=== PATIENT | female | born 1955 | race African-American/Black ===

== ENCOUNTER 2020-09-30 08:38 | Outpatient (REF) | payer MEDICAID, SELFPAY ==
--- NOTE | 2020-09-30 | MM_ITS ---
EXAMINATION: MM SCREENING DIGITAL BREAST TOMOSYNTHESIS, BILATERAL CLINICAL INFORMATION: Screening. Asymptomatic. The lifetime risk of breast cancer based on the Tyrer-Cuzick Model is 5%. COMPARISON: Mammography: 09/22/2019, 08/06/2018 TECHNIQUE: Digital breast tomosynthesis is performed in both the craniocaudal and mediolateral oblique views along with computer-aided detection (CAD). Synthesized 2D images are generated from the tomosynthesis. FINDINGS: There are scattered areas of fibroglandular density (ACR BI-RADS breast composition Category b). There are no significant masses, abnormal calcifications, or other abnormalities. The axilla and skin contours are unremarkable. MM/MM tomosynthesis screening BI IMPRESSION: No mammographic evidence of malignancy. ASSESSMENT: BI-RADS 1: Negative RECOMMENDATION: Routine annual mammography screening. This patient's information was entered into a reminder system with a target due date for their next mammogram.
== END 2020-09-30 08:39 | disposition home or self-care (01) ==
LOC: HO.MAMMO 08:38
PROVIDERS: Visit Provider Internal Medicine
DX: Z12.31 Encounter for screening mammogram for malignant neoplasm of breast (principal)
CPT/HCPCS: 77063; 77067

== ENCOUNTER 2021-08-03 15:33 | Inpatient (IN) | payer OTHER, SELFPAY ==
--- NOTE | 2021-08-03 15:35 | ED_ITS ---
HPI - Psych General Chief Complaint: Psychiatric Symptoms Stated Complaint: crisis Time Seen by Provider: 08/03/21 15:35 Source: patient and EMS Mode of arrival: EMS Limitations: no limitations History of Present Illness MD complaint: suicidal ideation and feels depressed Onset (ago): week(s) Duration: getting worse History of same: Yes Relieving factors: none Context: not taking psychiatric medications and significant life stressor Associated psychiatric symptoms: depression and suicidal ideation Associated symptoms: denies other symptoms Treatments prior to arrival: placed on mental health hold If self harm: admits thoughts of self harm Related Data Home Medications Medication Instructions Recorded Confirmed M.V.I. Adult 1 tab PO DAILY 08/03/21 08/03/21 albuterol sulfate 90 mcg/actuation 2 puff PO Q4H PRN 08/03/21 08/03/21 aerosol inhaler amlodipine 10 mg tablet 1 tab PO QAM 08/03/21 08/03/21 apixaban 5 mg tablet (Eliquis) 1 tab PO BID 08/03/21 08/03/21 atorvastatin 20 mg tablet 1 tab PO BEDTIME 08/03/21 08/03/21 benztropine 1 mg tablet 1 tab PO BID 08/03/21 08/03/21 bupropion HCl 300 mg 24 hr tablet, 1 tab PO QAM 08/03/21 08/03/21 extended release cholecalciferol (vitamin D3) 50 1 cap PO QAM 08/03/21 08/03/21 mcg (2,000 unit) capsule lisinopril 5 mg tablet 1 tab PO QAM 08/03/21 08/03/21 loratadine 10 mg tablet (Claritin) 10 mg PO DAILY 08/03/21 08/03/21 melatonin 3 mg tablet 1 tab PO BEDTIME PRN 08/03/21 08/03/21 mirtazapine 15 mg tablet 2 tab PO BEDTIME 08/03/21 08/03/21 olanzapine 20 mg tablet (Zyprexa) 20 mg PO BEDTIME 08/03/21 08/03/21 oxcarbazepine 300 mg tablet 300 mg PO DAILY 08/03/21 08/03/21 oxcarbazepine 300 mg tablet 600 mg PO BEDTIME 08/03/21 08/03/21 sennosides 8.6 mg tablet (senna) 8.6 mg PO DAILY PRN 08/03/21 08/03/21 simethicone 125 mg chewable tablet 1 tab PO QID PRN 08/03/21 08/03/21 thiamine HCl (vitamin B1) 100 mg 1 tab PO QAM 08/03/21 08/03/21 tablet Allergies Allergy/AdvReac Type Severity Reaction Status Date / Time hydrochlorothiazide Allergy Unknown UNKNOWN Unverified 08/17/20 17:36 [HYDROCHLOROTHIAZIDE] risperidone [From RISPERDAL] Allergy Unknown hives Unverified 08/17/20 17:36 trazodone [TRAZODONE] AdvReac Unknown FEELS VERY Unverified 08/17/20 17:36 SLEEPY ENVIRONMENTAL Allergy Unknown ITCHY EYES Uncoded 08/17/20 17:36 Review of Systems Review of Systems: Constitutional : No Fever, No Chills ENT/Mouth : No Ear Pain, No Nasal Congestion, No sore throat Eyes: No Eye Pain, No Swelling, No Redness Cardiovascular : No Chest Pain, No SOB Respiratory : No Cough, No Sputum, No Dyspnea Gastrointestinal : No Nausea, No Vomiting, No Diarrhea, No Hematochezia, No Melena Genitourinary : No Dysuria, No Urinary Frequency, No Hematuria Musculoskeletal : No Myalgias Skin : No Skin Lesions, No rash Neuro : No Weakness, No Numbness, No Paresthesias, No Dizziness, No Headache Psych : positive Anxiety, positive Depression, positive SI no HI Heme/Lymph: No Lymphadenopathy Endocrine : No Polyuria, No Polydipsia All other systems reviewed and are negative [facility] Past Medical History Attestation statement: The following information was validated with the patient. Medical History (Updated 08/03/21 @ 18:22 by Sheba Mims DO) Bipolar 1 disorder Depression HLD (hyperlipidemia) HTN (hypertension) PTSD (post-traumatic stress disorder) Social History Social History (Updated 08/03/21 @ 15:53 by Sheba Mims DO) Patient Tobacco Use Status: Never used Tobacco Use of substances other than those prescribed or required for medical reasons: No Advance Directives: No Advance Directives Information Provided: Yes Patient : No Physical Exam Vital Signs: Vital Signs: Last Vital Signs Temp 98.8 F 08/03/21 15:43 Pulse 69 08/03/21 15:43 Resp 16 08/03/21 17:27 BP 147/72 H 08/03/21 15:43 Pulse Ox 100 08/03/21 15:43 Body Mass Index 26.6 Appearance: Alert. Oriented X3. No acute distress. Eyes: Pupils equal, round and reactive to light. ENT: Pharynx normal. Neck: Normal inspection. Neck supple. CVS: Normal heart rate and rhythm. Pulses normal. Respiratory: No respiratory distress. Breath sounds normal. Abdomen: Soft and non-tender. Skin: Skin warm and dry. Normal skin color. Normal skin turgor. Extremities: No lower extremity edema. No calf ttp Neuro: Oriented X 3. No motor deficit. No sensory deficit. CN2-12 intact Psych: calm and cooperative, + depressed, + SI with plan Course Course Course Narrative: Physician observation started at 6pm Patient placed in physician observation because the patient needed more time BHN and placement for inpatient psychiatry. At the time observation was started the patient's vitals were stable, patient is alert and oriented, Neuro: nonfocal, CV RRR, Lungs clear signed out pending BHN input MDM - Psych MDM Narrative Medical decision making narrative: 66 yo female with worsening depression and SI - seen by N in the field c/o SI with plan at this time will need medical clearance. Labs and consult ordered. Lab Data Labs: Lab Results 08/03/21 Range/Units 16:51 COVID-19 (ANNA) Negative (Negative) COVID-19 Clin Com See Note Discharge Plan Discharge Clinical Impression: Depression with suicidal ideation Prescriptions: No Action M.V.I. Adult 1 tab PO DAILY RF: 0 amlodipine 10 mg tablet 1 tab PO QAM RF: 0 atorvastatin 20 mg tablet 1 tab PO BEDTIME RF: 0 lisinopril 5 mg tablet 1 tab PO QAM RF: 0 cholecalciferol (vitamin D3) 50 mcg (2,000 unit) capsule 1 cap PO QAM RF: 0 sennosides [senna] 8.6 mg Tablet 8.6 mg PO DAILY PRN (Reason: Constipation) RF: 0 thiamine HCl (vitamin B1) 100 mg tablet 1 tab PO QAM RF: 0 oxcarbazepine 300 mg tablet 300 mg PO DAILY RF: 0 oxcarbazepine 300 mg tablet 600 mg PO BEDTIME RF: 0 melatonin 3 mg tablet 1 tab PO BEDTIME PRN (Reason: Insomnia) RF: 0 benztropine 1 mg tablet 1 tab PO BID RF: 0 simethicone 125 mg tablet,chewable 1 tab PO QID PRN (Reason: gas) RF: 0 mirtazapine 15 mg tablet 2 tab PO BEDTIME RF: 0 albuterol sulfate 90 mcg/actuation HFA aerosol inhaler 2 puff PO Q4H PRN (Reason: Wheezing) RF: 0 olanzapine [Zyprexa] 20 mg Tablet 20 mg PO BEDTIME RF: 0 loratadine [Claritin] 10 mg Tablet 10 mg PO DAILY RF: 0 bupropion HCl 300 mg tablet extended release 24 hr 1 tab PO QAM RF: 0 Eliquis 5 mg tablet 1 tab PO BID RF: 0
[2021-08-03 15:43] VITALS: BP 147/72; PULSE 69; RESP 18; TEMP 37.1; O2SAT 100; BMI 26.6
--- NOTE | 2021-08-03 15:43 | ECG_ITS ---
Test Reason : PSYCHIATRIC Blood Pressure : / mmHG Vent. Rate : 060 BPM Atrial Rate : 060 BPM P-R Int : 180 ms QRS Dur : 080 ms QT Int : 420 ms P-R-T Axes : 060 058 -14 degrees QTc Int : 420 ms Normal sinus rhythm T wave abnormality, consider inferior ischemia Abnormal ECG When compared with ECG of 09-FEB-2019 10:03, Nonspecific T wave abnormality has replaced inverted T waves in Lateral leads Referred By: Sheba Mims Electronically Signed By:FEDERICA COFFEY
--- NOTE | 2021-08-03 15:58 | PC.NURSE ---
addendum: patient reports recently hearing voices telling her to hurt herself. reports poor memory recently. reports cocaine use for binges couple days of the week 100 dollars per day.
[2021-08-03 17:27] VITALS: RESP 16
[2021-08-03 17:27] LABS: COVID-19 Test Negative (Negative)
[2021-08-03 18:21] LABS: MANUAL DIFF FLAG NO
[2021-08-03 18:34] LABS: Ethanol < 10 mg/dL
[2021-08-03 18:38] LABS: Alanine Aminotransferase 31 U/L (0-31); Albumin Level 4.5 g/dL (3.5-5.0); Alkaline Phosphatase 91 U/L (39-117); Anion Gap 12 (12-20); Aspartate Amino Transferase 39 U/L (5-31); Bilirubin Direct < 0.2 mg/dL (0.0-0.5); Bilirubin Total 0.2 mg/dL (0.0-1.0); Blood Urea Nitrogen 8 mg/dL (9-16); Calcium 10.1 mg/dL (8.4-10.2); Carbon Dioxide 29 mmol/L (22-29); Chloride 96 mmol/L (96-108); Creatinine Clr Calc Pharmacy 63.9; Estimated Glomerular Filt Rate > 60; Glucose Random 108 mg/dL (60-115); Potassium 4.3 mmol/L (3.3-5.1); Sodium 133 mmol/L (135-145); Total Protein 7.3 g/dL (6.5-8.0)
[2021-08-03 18:39] LABS: Basophils Percent Auto 0.2 % (0-2); Eosinophils Absolute Auto 0.1 X10*3/uL (0.0-0.4); Eosinophils Percent Auto 1.3 % (0-4); Hematocrit 39.3 % (37-47); Imm Gran Abs Auto 0.01 X10*3/uL (0.00-0.03); Imm Gran Pct Auto 0.2 % (0.0-0.4); Lymphocytes Absolute Auto 1.9 X10*3/uL (1.2-4.9); Lymphocytes Percent Auto 33.6 % (20-40); Mean Corpuscular HGB Conc 33.1 g/dl (31.0-35.0); Mean Corpuscular Hemoglobin 29.9 pg (27.0-33.0); Mean Corpuscular Volume 90.3 fL (80-98); Monocytes Absolute Auto 0.3 X10*3/uL (0.1-1.2); Neutrophils Absolute Auto 3.2 X10*3/uL (2.0-8.3); Neutrophils Percent Auto 58.7 % (45-73); Platelet Count 287 X10*3/uL (160-400); Red Blood Count 4.35 X10*6/uL (4.20-5.50); Red Cell Distribution Width 12.8 % (11.0-16.0); White Blood Count 5.5 X10*3/uL (4.8-10.8)
[2021-08-03 18:58] LABS: TSH reflex Free T4 0.58 uIU/mL (0.32-4.0)
[2021-08-03 18:59] VITALS: BP 135/77; PULSE 73
[2021-08-03] MEDS: Cholecalciferol (Vitamin D3) 25 MCG TABLET 50 MCG PO (18:59)
[2021-08-03] MEDS: amLODIPine Besylate 10 MG TABLET PO (18:59)
[2021-08-03 19:00] VITALS: BP 135/77; PULSE 73
[2021-08-03] MEDS: lisinopriL 5 MG TABLET PO (19:00)
[2021-08-03] MEDS: buPROPion HCl XL 300 MG TAB.ER.24H PO (19:00)
[2021-08-03] MEDS: Thiamine HCL 100 MG TABLET PO (19:00)
[2021-08-03] MEDS: Mirtazapine 15 MG TABLET 30 MG PO (20:37)
[2021-08-03] MEDS: Atorvastatin Calcium 20 MG TABLET PO (20:37)
[2021-08-03] MEDS: Benztropine Mesylate 1 MG TABLET PO (20:37)
[2021-08-03] MEDS: OLANZapine 10 MG TABLET 20 MG PO (20:37)
[2021-08-03] MEDS: OXcarbazepine 300 MG TABLET 600 MG PO (20:37)
[2021-08-03] MEDS: Apixaban 5 MG TABLET PO (20:38)
--- NOTE | 2021-08-03 22:39 | PC.NURSE ---
Patient escorted to m3 room 307-[address] Solomon with m3 staff via wheelchair escorted by security with belongings
[2021-08-03 23:38] VITALS: BP 141/69; PULSE 63; RESP 18; TEMP 36.2; O2SAT 97
[2021-08-03] MEDS: Acetaminophen 325 MG TABLET 650 MG PO (23:59)
[2021-08-04] MEDS: hydrOXYzine HCL 25 MG TABLET PO (00:16)
[2021-08-04] MEDS: Melatonin 3 MG TABLET PO ×2 (00:16→22:14)
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
[2021-08-04 09:11] VITALS: BP 121/65; PULSE 56; RESP 16; TEMP 36.5; O2SAT 100
[2021-08-04] MEDS: Thiamine HCL 100 MG TABLET PO (09:30)
[2021-08-04] MEDS: Loratadine 10 MG TABLET PO (09:30)
--- NOTE | 2021-08-04 09:30 | P.HPPS_ITS ---
HPI Chief Complaint: Depression, SI Sources of Information: patient interviewed, chart reviewed and crisis/core team assessment reviewed HPI Subjective Notes: Herbert Warning (given pt understands.) and Conditional Voluntary Narrative: Ms. Eagle is a 66 year-old woman with hx of Bipolar 2 Disorder, cocaine use disorder who was assessed by [facility] crisis due to increased depression, isolating her self, suicidal ideation with plan to starve herself to and engaging in self-destructing behaviors such as using cocaine. In the ED, her utox was positive for cocaine. Per crisis N assessment, daughter reported that pt appears increasingly more confused, unable to complete ADLs, clean her house and questioned pt's ability to take medications as prescribed due to cognitive impairments. On the unit, Ms. Eagle is seen eating all her meals and eating a cookie while being interviewed by this gag writer. She reports feeling increasingly depressed, with sense of worthlessness and continues to endorse suicidal ideation with plan to starve herself to . Per pt she has not eaten nor had much fluids in months, despite bringing to her attention that she just completed 100% of her meals and is eating a cookie. Pt endorses anhedonia, low energy, depressed mood, inability to care for self. She reports fair sleep. She denies visual or auditory hallucinations. She denies homicidal ideation. Past Psychiatric History: Inpatient: 04/23/21 [facility] (suicidal ideation with plan to starve to ); 03/12/21 [facility]; 06/09/20 [facility]; 08/11/19 [facility]; 02/09/19 [facility]; 12/10/18 [facility]; 06/12/18 [facility], 05/13/17 [facility]; 7 other inpt admission since 2012. OP: [facility] Dr. Bryant Past medication trials: lithium, risperidone, trileptal, olanzapine, remeron Medical Evaluation Reviewed: Yes CMP does show hyponatremia (133 (9/3), 130 (9/5)) will hold trileptal, recheck/monitor Na, fluid restriction to 1800cc. [facility] Medical History (Updated 08/06/21 @ 11:41 by Laurel Gallardo) Bipolar 1 disorder Depression HLD (hyperlipidemia) HTN (hypertension) PTSD (post-traumatic stress disorder) Social History: pt lives alone. She has daughter who is close to her. Substance History: cocaine: long hx of cocaine use but pt unclear as to when was first use. She reports almost daily use for about one week prior to coming hospital. Trauma History: per records, pt has disclosed hx of trauma but not details disclosed during this interview. Diagnostics Vital Signs (24Hr): Vital Signs - 24 hr 08/03/21 15:43 08/03/21 17:27 08/03/21 18:59 Temperature 98.8 F Pulse Rate 69 73 Respiratory Rate 18 16 Blood Pressure 147/72 H 135/77 Pulse Oximetry 100 08/03/21 19:00 08/03/21 23:38 08/04/21 09:11 Temperature 97.2 F 97.7 F Pulse Rate 73 63 56 Respiratory Rate 18 16 Blood Pressure 135/77 141/69 H 121/65 Pulse Oximetry 97 100 Body Mass Index 26.6 Labs Results: 08/03/21 18:17 08/06/21 06:51 Labs: Laboratory Results - last 48 hr 08/03/21 08/03/21 08/03/21 16:51 18:17 18:17 WBC 5.5 RBC 4.35 Hgb 13.0 Hct 39.3 MCV 90.3 MCH 29.9 MCHC 33.1 RDW 12.8 Plt Count 287 MPV 9.0 L Immature Gran % (Auto) 0.2 Neut % (Auto) 58.7 Lymph % (Auto) 33.6 [place] % (Auto) 6.0 Eos % (Auto) 1.3 Baso % (Auto) 0.2 Lymph # (Auto) 1.9 [place] # (Auto) 0.3 Eos # (Auto) 0.1 Baso # (Auto) 0.0 Abs Immat Gran (auto) 0.01 Absolute Neuts (auto) 3.2 Absolute Nucleated RBC 0.000 Nucleated RBC % (auto) 0.0 Sodium 133 L Potassium 4.3 Chloride 96 Carbon Dioxide 29 Anion Gap 12 BUN 8 L Creatinine 0.92 Estim Creat Clear Calc 63.9 Estimated GFR > 60 Random Glucose 108 Calcium 10.1 Total Bilirubin 0.2 Direct Bilirubin < 0.2 AST 39 H ALT 31 Alkaline Phosphatase 91 Total Protein 7.3 Albumin 4.5 TSH 0.58 Ethyl Alcohol COVID-19 (ANNA) Negative COVID-19 Clin Com See Note 08/03/21 18:17 WBC RBC Hgb Hct MCV MCH MCHC RDW Plt Count MPV Immature Gran % (Auto) Neut % (Auto) Lymph % (Auto) [place] % (Auto) Eos % (Auto) Baso % (Auto) Lymph # (Auto) [place] # (Auto) Eos # (Auto) Baso # (Auto) Abs Immat Gran (auto) Absolute Neuts (auto) Absolute Nucleated RBC Nucleated RBC % (auto) Sodium Potassium Chloride Carbon Dioxide Anion Gap BUN Creatinine Estim Creat Clear Calc Estimated GFR Random Glucose Calcium Total Bilirubin Direct Bilirubin AST ALT Alkaline Phosphatase Total Protein Albumin TSH Ethyl Alcohol < 10 COVID-19 (ANNA) COVID-19 Clin Com Meds/Allergies Meds Home Medications Acetaminophen (Acetaminophen 325 Mg Tablet) 650 mg PO Q6H PRN PRN Reason: Headache/Pain Mild Scale (1-3) Last Admin: 08/04/21 21:09 Dose: 650 mg Documented by: Al Hydroxide/Mg Hydroxide (Magnesium Hydrox/Alum Hydrox 30 Ml Oral.Susp) 30 ml PO Q6H PRN PRN Reason: Heartburn/Nausea Albuterol Sulfate (Albuterol Sulfate 90 Mcg 8 Gm Inhaler) 2 puff INHALE Q4H PRN PRN Reason: Wheezing Amlodipine Besylate (Amlodipine Besylate 10 Mg Tablet) 10 mg PO DAILY [facility]; Protocol Last Admin: 08/06/21 09:07 Dose: 10 mg Documented by: Apixaban (Apixaban 5 Mg Tablet) 5 mg PO BID [facility] Last Admin: 08/06/21 09:08 Dose: 5 mg Documented by: Atorvastatin Calcium (Atorvastatin Calcium 20 Mg Tablet) 20 mg PO BEDTIME [facility] Last Admin: 08/05/21 22:17 Dose: 20 mg Documented by: Benztropine Mesylate (Benztropine Mesylate 1 Mg Tablet) 1 mg PO BID [facility] Last Admin: 08/06/21 09:08 Dose: 1 mg Documented by: Bupropion HCl (Bupropion Hcl Xl 300 Mg Tab.Er.24h) 300 mg PO DAILY [facility] Last Admin: 08/06/21 09:07 Dose: 300 mg Documented by: Hydroxyzine HCl (Hydroxyzine Hcl 25 Mg Tablet) 25 mg PO Q6H PRN PRN Reason: Anxiety Last Admin: 08/04/21 00:16 Dose: 25 mg Documented by: Lisinopril (Lisinopril 5 Mg Tablet) 5 mg PO DAILY [facility]; Protocol Last Admin: 08/06/21 09:07 Dose: 5 mg Documented by: Loratadine (Loratadine 10 Mg Tablet) 10 mg PO DAILY [facility] Last Admin: 08/06/21 09:07 Dose: 10 mg Documented by: Magnesium Hydroxide (Milk Of Magnesia 30 Ml Oral.Susp) 30 ml PO DAILY PRN PRN Reason: Constipation Melatonin (Melatonin 3 Mg Tablet) 3 mg PO BEDTIME PRN PRN Reason: Insomnia Last Admin: 08/05/21 22:18 Dose: 3 mg Documented by: Mirtazapine (Mirtazapine 15 Mg Tablet) 30 mg PO BEDTIME [facility] Last Admin: 08/05/21 22:17 Dose: 30 mg Documented by: Multivitamins/Vitamin C (Multivitamin Tablet) 1 tab PO DAILY [facility] Last Admin: 08/06/21 09:08 Dose: 1 tab Documented by: Olanzapine (Olanzapine 10 Mg Tablet) 20 mg PO BEDTIME [facility] Last Admin: 08/05/21 22:16 Dose: 20 mg Documented by: Senna (Sennosides 8.6 Mg Tablet) 8.6 mg PO DAILY PRN PRN Reason: Constipation Simethicone (Simethicone 80 Mg Tab.Chew) 80 mg PO QID PRN PRN Reason: gas Thiamine HCl (Thiamine Hcl 100 Mg Tablet) 100 mg PO DAILY [facility] Last Admin: 08/06/21 09:08 Dose: 100 mg Documented by: Vitamin D (Cholecalciferol (Vitamin D3) 25 Mcg Tablet) 50 mcg PO DAILY [facility] Last Admin: 08/06/21 09:07 Dose: 50 mcg Documented by: Allergies Allergies Allergy/AdvReac Type Severity Reaction Status Date / Time hydrochlorothiazide Allergy Unknown UNKNOWN Verified 08/04/21 06:39 [HYDROCHLOROTHIAZIDE] risperidone [From RISPERDAL] Allergy Unknown hives Verified 08/04/21 06:39 trazodone [TRAZODONE] AdvReac Unknown FEELS VERY Verified 08/04/21 06:39 SLEEPY ENVIRONMENTAL Allergy Unknown ITCHY EYES Uncoded 08/17/20 17:36 Mental Status Exam Mental Status Exam Narrative: Appearance: casually groomed, fair hygiene in NAD Behavior:superficially cooperative psychomotor:no agitation or retardation noted Speech:clear, normal rate/rhythm/volume, spontaneous Thought process:tangential Thought content:no signs of psychosis, hopeless, depressed Mood: depressed Affect: blunted SI:with plan to starve self to but note that pt eating 100% of her meals HI:none VH/AH:none Delusions: none Insight/judgment:poor x 2. Memory/cog: alert, oriented x 3. Pending MOCA Assessment & Plan Assessment & Plan (1) Bipolar II disorder major depressive with melancholic features: Status: Acute Code(s): F31.81 - Bipolar II disorder (2) Cocaine use disorder, moderate, dependence: Status: Acute Code(s): F14.20 - Cocaine dependence, uncomplicated Assessment and Plan: Ms. Eagle is a 66 year-old woman with multiple inpatient psychiatric admission, hx of Bipolar Disorder and cocaine use, possibly as well PD. She was brought to [facility] by daughter after she was assessed in the community by [facility] crisis due to pt reporting increase depression, anhedonia, suicidal ideation with plan to starve herself to , which pt continues to report despite eating 100% of meals and adequately drinking fluid. His utox was positive for cocaine. Her CMB notable for hyponatremia (133 on 08/03 ), pt on trileptal which will be hold and pt fluid restriction to 1800cc. PLAN 1. Admit to M3 2. Stop trileptal, recheck Na, fluid restriction to 1800cc. 3. Obtain collateral information 4. Consider once mood more stable to complete MOCA given concerns of cognitive decline 5. Aftercare planning. Patient educated on: diagnosis, medication risk/benefits and substance abuse Informed Consent: understands Reason for continued inpatient stay Substantial Risk for: harm to self
[2021-08-04] MEDS: Apixaban 5 MG TABLET PO ×2 (09:31→21:10)
[2021-08-04] MEDS: Benztropine Mesylate 1 MG TABLET PO ×2 (09:31→21:08)
[2021-08-04] MEDS: Cholecalciferol (Vitamin D3) 25 MCG TABLET 50 MCG PO (09:31)
[2021-08-04] MEDS: OXcarbazepine 300 MG TABLET PO (09:31)
[2021-08-04] MEDS: buPROPion HCl XL 300 MG TAB.ER.24H PO (09:33)
[2021-08-04] MEDS: Multivitamin TABLET 1 TAB PO (09:34)
[2021-08-04 09:55] LABS: Glucose Urine UA NEG (NEG); Leukocyte Esterase Urine TRACE (NEG); Nitrite Urine NEG (NEG); Specific Gravity - Urine >= 1.030 (1.005-1.025); UACC Culture Trigger YES; Urine Blood NEG (NEG); Urine Ketones 5 MG/DL (NEG); Urine Protein NEG (NEG-TRACE)
[2021-08-04 09:58] LABS: Appearance Urine HAZY; Color Urine YELLOW
[2021-08-04 10:09] LABS: Amorphous Sediment Urine 1+ /LPF; Calcium Oxalate Crystals Urine 2+ /LPF; Mucus Urine 1+ /LPF; RBC Urine 0 /HPF (0); Squamous Epithelial Cell Urine 1+ /LPF
[2021-08-04 10:19] LABS: Amphetamine Screen Urine Not Detected (Not Detect); Barbiturates, Urine Not Detected (Not Detect); Benzodiazepines Screen Urine Not Detected (Not Detect); Cannabinoid Screen Urine Not Detected (Not Detect); Cocaine Screen Urine POSITIVE (Not Detect); Fentanyl, urine Not Detected (Not Detect); Opiate Screen Urine Not Detected (Not Detect); Phencyclidine Screen Urine Not Detected (Not Detect)
[2021-08-04 18:00] VITALS: BP 124/71; PULSE 72; RESP 18; TEMP 36.3; O2SAT 99
[2021-08-04] MEDS: OLANZapine 10 MG TABLET 20 MG PO (21:08)
[2021-08-04] MEDS: Mirtazapine 15 MG TABLET 30 MG PO (21:08)
[2021-08-04] MEDS: OXcarbazepine 300 MG TABLET 600 MG PO (21:09)
[2021-08-04] MEDS: Acetaminophen 325 MG TABLET 650 MG PO (21:09)
[2021-08-04] MEDS: Atorvastatin Calcium 20 MG TABLET PO (21:10)
--- NOTE | 2021-08-05 07:43 | HO.PSYCHPN ---
Subjective Subjective Date of Service: 08/07/21 Reason For Visit: Depression, SI Subjective Notes: Herbert Warning and Conditional Voluntary Interim History: Pt continues to endorse depressed mood, suicidal ideation with plan to starve although note that she has been observed by staff to complete 100%. Her sodium low to 130- stop trileptal and restrict fluid, will recheck tomorrow. Pt reports feeling tired. She has been visible in the unit, social with select peers. Medication Compliance: Yes Review of Systems Review of Systems Constitutional : No Fever, No Chills ENT/Mouth : No Ear Pain, No Nasal Congestion, No sore throat Eyes: No Eye Pain, No Swelling, No Redness Cardiovascular : No Chest Pain, No SOB Respiratory : No Cough, No Sputum, No Dyspnea Gastrointestinal : No Nausea, No Vomiting, No Diarrhea, No Hematochezia, No Melena Genitourinary : No Dysuria, No Urinary Frequency, No Hematuria Musculoskeletal : No Myalgias Skin : No Skin Lesions, No rash Neuro : No Weakness, No Numbness, No Paresthesias, No Dizziness, No Headache Psych : positive Anxiety, positive Depression, positive SI no HI Heme/Lymph: No Lymphadenopathy Endocrine : No Polyuria, No Polydipsia All other systems reviewed and are negative Constitutional: Reports fatigue Denies dysphagia Cardiovascular: Denies chest pain, Denies chest pain with activity, Denies lightheadedness and Denies dyspnea Respiratory: Denies chest congestion, Denies cough and Denies dyspnea Gastrointestinal: Denies constipation, Denies dysphagia, Denies loose stools, Denies nausea and Denies vomiting Musculoskeletal: Denies no additional musculoskeletal complaints Psychiatric: Reports depression, Reports hopelessness and Reports anhedonia Endocrine: Reports fatigue Mental Status Exam Mental Status Exam Narrative: Appearance: casually groomed, fair hygiene in NAD Behavior:superficially cooperative psychomotor:no agitation or retardation noted Speech:clear, normal rate/rhythm/volume, spontaneous Thought process:tangential Thought content:no signs of psychosis, hopeless, depressed Mood: depressed Affect: blunted SI:with plan to starve self to but note that pt eating 100% of her meals HI:none VH/AH:none Delusions: none Insight/judgment:poor x 2. Memory/cog: alert, oriented x 3. Pending MOCA Diagnostics Vital Signs (24Hr): Vital Signs - 24 hr 08/06/21 08:35 08/06/21 16:43 Temperature 96.9 F 97 F Pulse Rate 52 62 Respiratory Rate 14 Blood Pressure 116/63 96/50 L Body Mass Index 26.6 Labs Results: 08/03/21 18:17 08/06/21 06:51 Labs: Laboratory Results - last 48 hr 08/05/21 08/06/21 08/06/21 07:43 06:51 06:51 Sodium 130 L 136 Potassium 4.2 4.8 Chloride 97 100 Carbon Dioxide 26 29 Anion Gap 11 L 12 BUN 6 L 11 D Creatinine 0.80 1.00 Estim Creat Clear Calc 73.5 58.8 Estimated GFR > 60 56 Random Glucose 95 104 Osmolality 286 Calcium 8.9 D 9.7 D Total Bilirubin 0.2 AST 26 ALT 22 Alkaline Phosphatase 76 Total Protein 5.8 L D Albumin 3.6 Urine Osmolality Ur Random Sodium 08/06/21 08/06/21 14:35 14:35 Sodium Potassium Chloride Carbon Dioxide Anion Gap BUN Creatinine Estim Creat Clear Calc Estimated GFR Random Glucose Osmolality Calcium Total Bilirubin AST ALT Alkaline Phosphatase Total Protein Albumin Urine Osmolality 463 Ur Random Sodium 34.0 Medications Medications Current Medications Generic Name Dose Route Start Last Admin Trade Name Freq PRN Reason Stop Dose Admin Acetaminophen 650 mg 08/03/21 22:08 08/04/21 21:09 Acetaminophen 325 Mg Tablet PO 650 mg Q6H PRN Administration Headache/Pain Mild Scale (1-3) Al Hydroxide/Mg Hydroxide 30 ml 08/03/21 22:08 Magnesium Hydrox/Alum Hydrox 30 Ml Oral.Susp PO Q6H PRN Heartburn/Nausea Albuterol Sulfate 2 puff 08/03/21 18:19 08/06/21 22:02 Albuterol Sulfate 90 Mcg 8 Gm Inhaler INHALE 2 puff Q4H PRN Administration Wheezing Amlodipine Besylate 10 mg 08/03/21 18:30 08/06/21 09:07 Amlodipine Besylate 10 Mg Tablet PO 10 mg DAILY BONIFACIO Administration Protocol Apixaban 5 mg 08/03/21 21:00 08/06/21 22:02 Apixaban 5 Mg Tablet PO 5 mg BID BONIFACIO Administration Atorvastatin Calcium 20 mg 08/03/21 21:00 08/06/21 22:02 Atorvastatin Calcium 20 Mg Tablet PO 20 mg BEDTIME BONIFACIO Administration Benztropine Mesylate 1 mg 08/03/21 21:00 08/06/21 22:02 Benztropine Mesylate 1 Mg Tablet PO 1 mg BID BONIFACIO Administration Bupropion HCl 300 mg 08/03/21 18:30 08/06/21 09:07 Bupropion Hcl Xl 300 Mg Tab.Er.24h PO 300 mg DAILY BONIFACIO Administration Hydroxyzine HCl 25 mg 08/03/21 22:08 08/06/21 14:33 Hydroxyzine Hcl 25 Mg Tablet PO 25 mg Q6H PRN Administration Anxiety Lisinopril 5 mg 08/03/21 19:00 08/06/21 09:07 Lisinopril 5 Mg Tablet PO 5 mg DAILY BONIFACIO Administration Protocol Loratadine 10 mg 08/04/21 09:00 08/06/21 09:07 Loratadine 10 Mg Tablet PO 10 mg DAILY BONIFACIO Administration Magnesium Hydroxide 30 ml 08/03/21 22:08 Milk Of Magnesia 30 Ml Oral.Susp PO DAILY PRN Constipation Melatonin 3 mg 08/03/21 18:19 08/06/21 22:02 Melatonin 3 Mg Tablet PO 3 mg BEDTIME PRN Administration Insomnia Mirtazapine 30 mg 08/03/21 21:00 08/06/21 22:02 Mirtazapine 15 Mg Tablet PO 30 mg BEDTIME BONIFACIO Administration Multivitamins/Vitamin C 1 tab 08/04/21 09:00 08/06/21 09:08 Multivitamin Tablet PO 1 tab DAILY BONIFACIO Administration Olanzapine 20 mg 08/03/21 21:00 08/06/21 22:02 Olanzapine 10 Mg Tablet PO 20 mg BEDTIME BONIFACIO Administration Senna 8.6 mg 08/03/21 18:19 Sennosides 8.6 Mg Tablet PO DAILY PRN Constipation Simethicone 80 mg 08/03/21 18:30 Simethicone 80 Mg Tab.Chew PO QID PRN gas Thiamine HCl 100 mg 08/03/21 18:30 08/06/21 09:08 Thiamine Hcl 100 Mg Tablet PO 100 mg DAILY BONIFACIO Administration Vitamin D 50 mcg 08/03/21 18:30 08/06/21 09:07 Cholecalciferol (Vitamin D3) 25 Mcg Tablet PO 50 mcg DAILY BONIFACIO Administration Allergies Allergies Allergy/AdvReac Type Severity Reaction Status Date / Time hydrochlorothiazide Allergy Unknown UNKNOWN Verified 08/04/21 06:39 [HYDROCHLOROTHIAZIDE] risperidone [From RISPERDAL] Allergy Unknown hives Verified 08/04/21 06:39 trazodone [TRAZODONE] AdvReac Unknown FEELS VERY Verified 08/04/21 06:39 SLEEPY ENVIRONMENTAL Allergy Unknown ITCHY EYES Uncoded 08/17/20 17:36 Assessment & Plan Assessment & Plan (1) Bipolar II disorder major depressive with melancholic features: Status: Acute Code(s): F31.81 - Bipolar II disorder (2) Cocaine use disorder, moderate, dependence: Status: Acute Code(s): F14.20 - Cocaine dependence, uncomplicated Assessment and Plan: Ms. Eagle is a 66 year-old woman with multiple inpatient psychiatric admission, hx of Bipolar Disorder and cocaine use, possibly as well PD. She was brought to [facility] [place] ED by daughter after she was assessed in the community by [facility] crisis due to pt reporting increase depression, anhedonia, suicidal ideation with plan to starve herself to , which pt continues to report despite eating 100% of meals and adequately drinking fluid. His utox was positive for cocaine. Her CMB notable for hyponatremia (133 on 08/03 ), pt on trileptal which will be hold and pt fluid restriction to 1800cc. PLAN 1. Admit to M3 2. Stop trileptal, recheck Na, fluid restriction to 1800cc. 3. Obtain collateral information 4. Consider once mood more stable to complete MOCA given concerns of cognitive decline 5. Aftercare planning. Greater than 50% of the session was spent on counseling and/or coordination of care Reason for contiued inpatient stay Substantial Risk for: harm to self
[2021-08-05 08:18] LABS: Alanine Aminotransferase 22 U/L (0-31); Albumin Level 3.6 g/dL (3.5-5.0); Alkaline Phosphatase 76 U/L (39-117); Anion Gap 11 (12-20); Aspartate Amino Transferase 26 U/L (5-31); Bilirubin Total 0.2 mg/dL (0.0-1.0); Blood Urea Nitrogen 6 mg/dL (9-16); Carbon Dioxide 26 mmol/L (22-29); Chloride 97 mmol/L (96-108); Creatinine Clr Calc Pharmacy 73.5; Estimated Glomerular Filt Rate > 60; Glucose Random 95 mg/dL (60-115); Potassium 4.2 mmol/L (3.3-5.1); Sodium 130 mmol/L (135-145); Total Protein 5.8 g/dL (6.5-8.0)
[2021-08-05 08:28] LABS: Calcium 8.9 mg/dL (8.4-10.2)
[2021-08-05 09:08] VITALS: BP 130/68; PULSE 72; RESP 18; TEMP 36.3; O2SAT 98
[2021-08-05 09:21] VITALS: BP 130/68; PULSE 72
[2021-08-05] MEDS: Loratadine 10 MG TABLET PO (09:21)
[2021-08-05] MEDS: Benztropine Mesylate 1 MG TABLET PO ×2 (09:21→22:18)
[2021-08-05] MEDS: Thiamine HCL 100 MG TABLET PO (09:21)
[2021-08-05] MEDS: buPROPion HCl XL 300 MG TAB.ER.24H PO (09:21)
[2021-08-05] MEDS: Cholecalciferol (Vitamin D3) 25 MCG TABLET 50 MCG PO (09:21)
[2021-08-05] MEDS: amLODIPine Besylate 10 MG TABLET PO (09:21)
[2021-08-05] MEDS: lisinopriL 5 MG TABLET PO (09:21)
[2021-08-05] MEDS: Multivitamin TABLET 1 TAB PO (09:22)
[2021-08-05] MEDS: OXcarbazepine 300 MG TABLET PO (09:22)
[2021-08-05] MEDS: Apixaban 5 MG TABLET PO ×2 (09:22→22:17)
[2021-08-05 20:25] VITALS: BP 114/59; PULSE 56; RESP 18; TEMP 35.9; O2SAT 100
[2021-08-05] MEDS: OLANZapine 10 MG TABLET 20 MG PO (22:16)
[2021-08-05] MEDS: Mirtazapine 15 MG TABLET 30 MG PO (22:17)
[2021-08-05] MEDS: Atorvastatin Calcium 20 MG TABLET PO (22:17)
[2021-08-05] MEDS: Melatonin 3 MG TABLET PO (22:18)
[2021-08-06 07:18] LABS: Osmolality, Serum 286 mosm/kg (281-305)
[2021-08-06 07:39] LABS: Anion Gap 12 (12-20); Blood Urea Nitrogen 11 mg/dL (9-16); Calcium 9.7 mg/dL (8.4-10.2); Carbon Dioxide 29 mmol/L (22-29); Chloride 100 mmol/L (96-108); Creatinine Clr Calc Pharmacy 58.8; Estimated Glomerular Filt Rate 56; Glucose Random 104 mg/dL (60-115); Potassium 4.8 mmol/L (3.3-5.1); Sodium 136 mmol/L (135-145)
--- NOTE | 2021-08-06 07:45 | HO.PSYCHPN ---
Subjective Subjective Date of Service: 08/07/21 Reason For Visit: Depression, SI Interim History: Pt continues to endorse depressed mood, suicidal ideation with plan to starve although note that she has been observed by staff to complete 100%. Pt asks if she can be started on ensure due to poor appetite. Her sodium today is wnl 136. Pt reports feeling tired. She has been visible in the unit, social with select peers. Review of Systems Review of Systems Constitutional : No Fever, No Chills ENT/Mouth : No Ear Pain, No Nasal Congestion, No sore throat Eyes: No Eye Pain, No Swelling, No Redness Cardiovascular : No Chest Pain, No SOB Respiratory : No Cough, No Sputum, No Dyspnea Gastrointestinal : No Nausea, No Vomiting, No Diarrhea, No Hematochezia, No Melena Genitourinary : No Dysuria, No Urinary Frequency, No Hematuria Musculoskeletal : No Myalgias Skin : No Skin Lesions, No rash Neuro : No Weakness, No Numbness, No Paresthesias, No Dizziness, No Headache Psych : positive Anxiety, positive Depression, positive SI no HI Heme/Lymph: No Lymphadenopathy Endocrine : No Polyuria, No Polydipsia All other systems reviewed and are negative Constitutional: Reports fatigue Denies dysphagia Cardiovascular: Denies chest pain, Denies chest pain with activity, Denies lightheadedness and Denies dyspnea Respiratory: Denies chest congestion, Denies cough and Denies dyspnea Gastrointestinal: Denies constipation, Denies dysphagia, Denies loose stools, Denies nausea and Denies vomiting Musculoskeletal: Denies no additional musculoskeletal complaints Psychiatric: Reports depression, Reports hopelessness and Reports anhedonia Endocrine: Reports fatigue Mental Status Exam Mental Status Exam Narrative: Appearance: casually groomed, fair hygiene in NAD Behavior:superficially cooperative psychomotor:no agitation or retardation noted Speech:clear, normal rate/rhythm/volume, spontaneous Thought process:tangential Thought content:no signs of psychosis, hopeless, depressed Mood: depressed Affect: blunted SI:with plan to starve self to but note that pt eating 100% of her meals HI:none VH/AH:none Delusions: none Insight/judgment:poor x 2. Memory/cog: alert, oriented x 3. Pending MOCA Diagnostics Vital Signs (24Hr): Vital Signs - 24 hr 08/06/21 08:35 08/06/21 16:43 Temperature 96.9 F 97 F Pulse Rate 52 62 Respiratory Rate 14 Blood Pressure 116/63 96/50 L Body Mass Index 26.6 Labs Results: 08/03/21 18:17 08/06/21 06:51 Labs: Laboratory Results - last 48 hr 08/05/21 08/06/21 08/06/21 07:43 06:51 06:51 Sodium 130 L 136 Potassium 4.2 4.8 Chloride 97 100 Carbon Dioxide 26 29 Anion Gap 11 L 12 BUN 6 L 11 D Creatinine 0.80 1.00 Estim Creat Clear Calc 73.5 58.8 Estimated GFR > 60 56 Random Glucose 95 104 Osmolality 286 Calcium 8.9 D 9.7 D Total Bilirubin 0.2 AST 26 ALT 22 Alkaline Phosphatase 76 Total Protein 5.8 L D Albumin 3.6 Urine Osmolality Ur Random Sodium 08/06/21 08/06/21 14:35 14:35 Sodium Potassium Chloride Carbon Dioxide Anion Gap BUN Creatinine Estim Creat Clear Calc Estimated GFR Random Glucose Osmolality Calcium Total Bilirubin AST ALT Alkaline Phosphatase Total Protein Albumin Urine Osmolality 463 Ur Random Sodium 34.0 Medications Medications Current Medications Generic Name Dose Route Start Last Admin Trade Name Freq PRN Reason Stop Dose Admin Acetaminophen 650 mg 08/03/21 22:08 08/04/21 21:09 Acetaminophen 325 Mg Tablet PO 650 mg Q6H PRN Administration Headache/Pain Mild Scale (1-3) Al Hydroxide/Mg Hydroxide 30 ml 08/03/21 22:08 Magnesium Hydrox/Alum Hydrox 30 Ml Oral.Susp PO Q6H PRN Heartburn/Nausea Albuterol Sulfate 2 puff 08/03/21 18:19 08/06/21 22:02 Albuterol Sulfate 90 Mcg 8 Gm Inhaler INHALE 2 puff Q4H PRN Administration Wheezing Amlodipine Besylate 10 mg 08/03/21 18:30 08/06/21 09:07 Amlodipine Besylate 10 Mg Tablet PO 10 mg DAILY BONIFACIO Administration Protocol Apixaban 5 mg 08/03/21 21:00 08/06/21 22:02 Apixaban 5 Mg Tablet PO 5 mg BID BONIFACIO Administration Atorvastatin Calcium 20 mg 08/03/21 21:00 08/06/21 22:02 Atorvastatin Calcium 20 Mg Tablet PO 20 mg BEDTIME BONIFACIO Administration Benztropine Mesylate 1 mg 08/03/21 21:00 08/06/21 22:02 Benztropine Mesylate 1 Mg Tablet PO 1 mg BID BONIFACIO Administration Bupropion HCl 300 mg 08/03/21 18:30 08/06/21 09:07 Bupropion Hcl Xl 300 Mg Tab.Er.24h PO 300 mg DAILY BONIFACIO Administration Hydroxyzine HCl 25 mg 08/03/21 22:08 08/06/21 14:33 Hydroxyzine Hcl 25 Mg Tablet PO 25 mg Q6H PRN Administration Anxiety Lisinopril 5 mg 08/03/21 19:00 08/06/21 09:07 Lisinopril 5 Mg Tablet PO 5 mg DAILY BONIFACIO Administration Protocol Loratadine 10 mg 08/04/21 09:00 08/06/21 09:07 Loratadine 10 Mg Tablet PO 10 mg DAILY BONIFACIO Administration Magnesium Hydroxide 30 ml 08/03/21 22:08 Milk Of Magnesia 30 Ml Oral.Susp PO DAILY PRN Constipation Melatonin 3 mg 08/03/21 18:19 08/06/21 22:02 Melatonin 3 Mg Tablet PO 3 mg BEDTIME PRN Administration Insomnia Mirtazapine 30 mg 08/03/21 21:00 08/06/21 22:02 Mirtazapine 15 Mg Tablet PO 30 mg BEDTIME BONIFACIO Administration Multivitamins/Vitamin C 1 tab 08/04/21 09:00 08/06/21 09:08 Multivitamin Tablet PO 1 tab DAILY BONIFACIO Administration Olanzapine 20 mg 08/03/21 21:00 08/06/21 22:02 Olanzapine 10 Mg Tablet PO 20 mg BEDTIME BONIFACIO Administration Senna 8.6 mg 08/03/21 18:19 Sennosides 8.6 Mg Tablet PO DAILY PRN Constipation Simethicone 80 mg 08/03/21 18:30 Simethicone 80 Mg Tab.Chew PO QID PRN gas Thiamine HCl 100 mg 08/03/21 18:30 08/06/21 09:08 Thiamine Hcl 100 Mg Tablet PO 100 mg DAILY BONIFACIO Administration Vitamin D 50 mcg 08/03/21 18:30 08/06/21 09:07 Cholecalciferol (Vitamin D3) 25 Mcg Tablet PO 50 mcg DAILY BONIFACIO Administration Allergies Allergies Allergy/AdvReac Type Severity Reaction Status Date / Time hydrochlorothiazide Allergy Unknown UNKNOWN Verified 08/04/21 06:39 [HYDROCHLOROTHIAZIDE] risperidone [From RISPERDAL] Allergy Unknown hives Verified 08/04/21 06:39 trazodone [TRAZODONE] AdvReac Unknown FEELS VERY Verified 08/04/21 06:39 SLEEPY ENVIRONMENTAL Allergy Unknown ITCHY EYES Uncoded 08/17/20 17:36 Assessment & Plan Assessment & Plan (1) Bipolar II disorder major depressive with melancholic features: Status: Acute Code(s): F31.81 - Bipolar II disorder (2) Cocaine use disorder, moderate, dependence: Status: Acute Code(s): F14.20 - Cocaine dependence, uncomplicated Assessment and Plan: Ms. Eagle is a 66 year-old woman with multiple inpatient psychiatric admission, hx of Bipolar Disorder and cocaine use, possibly as well PD. She was brought to [facility] [place] [facility] by daughter after she was assessed in the community by [facility] crisis due to pt reporting increase depression, anhedonia, suicidal ideation with plan to starve herself to , which pt continues to report despite eating 100% of meals and adequately drinking fluid. His utox was positive for cocaine. Her CMB notable for hyponatremia (133 on 08/03 ), pt on trileptal which will be hold and pt fluid restriction to 1800cc. PLAN 1. Admit to M3 2. Stop trileptal, recheck Na, fluid restriction to 1800cc. 3. Obtain collateral information 4. Consider once mood more stable to complete MOCA given concerns of cognitive decline 5. Aftercare planning. Greater than 50% of the session was spent on counseling and/or coordination of care Reason for contiued inpatient stay Substantial Risk for: harm to self
[2021-08-06 08:35] VITALS: BP 116/63; PULSE 52; RESP 14; TEMP 36.1
[2021-08-06] MEDS: buPROPion HCl XL 300 MG TAB.ER.24H PO (09:07)
[2021-08-06] MEDS: Cholecalciferol (Vitamin D3) 25 MCG TABLET 50 MCG PO (09:07)
[2021-08-06] MEDS: Loratadine 10 MG TABLET PO (09:07)
[2021-08-06] MEDS: lisinopriL 5 MG TABLET PO (09:07)
[2021-08-06] MEDS: amLODIPine Besylate 10 MG TABLET PO (09:07)
[2021-08-06] MEDS: Apixaban 5 MG TABLET PO ×2 (09:08→22:02)
[2021-08-06] MEDS: Thiamine HCL 100 MG TABLET PO (09:08)
[2021-08-06] MEDS: Benztropine Mesylate 1 MG TABLET PO ×2 (09:08→22:02)
[2021-08-06] MEDS: Multivitamin TABLET 1 TAB PO (09:08)
[2021-08-06] MEDS: hydrOXYzine HCL 25 MG TABLET PO (14:33)
[2021-08-06 15:09] LABS: Osmolality Urine 463 mosm/kg (373-1093)
[2021-08-06 16:43] VITALS: BP 96/50; PULSE 62; TEMP 36.1
[2021-08-06] MEDS: Atorvastatin Calcium 20 MG TABLET PO (22:02)
[2021-08-06] MEDS: OLANZapine 10 MG TABLET 20 MG PO (22:02)
[2021-08-06] MEDS: Mirtazapine 15 MG TABLET 30 MG PO (22:02)
[2021-08-06] MEDS: Melatonin 3 MG TABLET PO (22:02)
[2021-08-06] MEDS: Albuterol Sulfate 90 MCG 8 GM INHALER 2 PUFF INHALE (22:02)
[2021-08-07 08:00] VITALS: BP 130/60; PULSE 60; RESP 16; TEMP 36.1; O2SAT 100
[2021-08-07] MEDS: buPROPion HCl XL 300 MG TAB.ER.24H PO (08:42)
[2021-08-07] MEDS: Benztropine Mesylate 1 MG TABLET PO ×2 (08:42→22:34)
[2021-08-07] MEDS: Milk of Magnesia 30 ML ORAL.SUSP PO (08:42)
[2021-08-07] MEDS: Loratadine 10 MG TABLET PO (08:42)
[2021-08-07 08:43] VITALS: BP 130/60; PULSE 60
[2021-08-07] MEDS: Thiamine HCL 100 MG TABLET PO (08:43)
[2021-08-07] MEDS: Cholecalciferol (Vitamin D3) 25 MCG TABLET 50 MCG PO (08:43)
[2021-08-07] MEDS: lisinopriL 5 MG TABLET PO (08:43)
[2021-08-07] MEDS: Multivitamin TABLET 1 TAB PO (08:43)
[2021-08-07] MEDS: Apixaban 5 MG TABLET PO ×2 (08:43→22:34)
[2021-08-07] MEDS: amLODIPine Besylate 10 MG TABLET PO (08:43)
--- NOTE | 2021-08-07 09:19 | HO.PSYCHPN ---
Subjective Subjective Date of Service: 08/08/21 Reason For Visit: Depression, SI Interim History: Pt mostly in bed. She continues to endorse depressed mood, anhedonia, low energy, memory problems. Pt reports that she regrets not having by means of starvation. She continues to endorse poor appetite but eating 100% and snacks throughout the day. She is also asking for ensure. She reports suicidal ideaiton with plan to starve to . Medication Compliance: Yes Side effects from medications: No Attending Groups: No Review of Systems Acute medical concerns: No Review of Systems Review of Systems Constitutional : No Fever, No Chills ENT/Mouth : No Ear Pain, No Nasal Congestion, No sore throat Eyes: No Eye Pain, No Swelling, No Redness Cardiovascular : No Chest Pain, No SOB Respiratory : No Cough, No Sputum, No Dyspnea Gastrointestinal : No Nausea, No Vomiting, No Diarrhea, No Hematochezia, No Melena Genitourinary : No Dysuria, No Urinary Frequency, No Hematuria Musculoskeletal : No Myalgias Skin : No Skin Lesions, No rash Neuro : No Weakness, No Numbness, No Paresthesias, No Dizziness, No Headache Psych : positive Anxiety, positive Depression, positive SI no HI Heme/Lymph: No Lymphadenopathy Endocrine : No Polyuria, No Polydipsia All other systems reviewed and are negative Constitutional: Reports fatigue Denies dysphagia Cardiovascular: Denies chest pain, Denies chest pain with activity, Denies lightheadedness and Denies dyspnea Respiratory: Denies chest congestion, Denies cough and Denies dyspnea Gastrointestinal: Denies constipation, Denies dysphagia, Denies loose stools, Denies nausea and Denies vomiting Musculoskeletal: Denies no additional musculoskeletal complaints Psychiatric: Reports depression, Reports hopelessness and Reports anhedonia Endocrine: Reports fatigue Mental Status Exam Mental Status Exam Narrative: Appearance: casually groomed, fair hygiene in NAD Behavior:superficially cooperative psychomotor:no agitation or retardation noted Speech:clear, normal rate/rhythm/volume, spontaneous Thought process:tangential Thought content:no signs of psychosis, hopeless, depressed Mood: depressed Affect: blunted SI:with plan to starve self to but note that pt eating 100% of her meals HI:none VH/AH:none Delusions: none Insight/judgment:poor x 2. Memory/cog: alert, oriented x 3. Pending MOCA Diagnostics Vital Signs (24Hr): Vital Signs - 24 hr 08/07/21 18:00 Temperature 96.6 F L Pulse Rate 71 Blood Pressure 143/77 H Pulse Oximetry 99 Body Mass Index 26.6 Labs Results: 08/03/21 18:17 08/06/21 06:51 Labs: Laboratory Results - last 48 hr 08/06/21 08/06/21 14:35 14:35 Urine Osmolality 463 Ur Random Sodium 34.0 Medications Medications Current Medications Generic Name Dose Route Start Last Admin Trade Name Freq PRN Reason Stop Dose Admin Acetaminophen 650 mg 08/03/21 22:08 08/04/21 21:09 Acetaminophen 325 Mg Tablet PO 650 mg Q6H PRN Administration Headache/Pain Mild Scale (1-3) Al Hydroxide/Mg Hydroxide 30 ml 08/03/21 22:08 Magnesium Hydrox/Alum Hydrox 30 Ml Oral.Susp PO Q6H PRN Heartburn/Nausea Albuterol Sulfate 2 puff 08/03/21 18:19 08/06/21 22:02 Albuterol Sulfate 90 Mcg 8 Gm Inhaler INHALE 2 puff Q4H PRN Administration Wheezing Amlodipine Besylate 10 mg 08/03/21 18:30 08/07/21 08:43 Amlodipine Besylate 10 Mg Tablet PO 10 mg DAILY BONIFACIO Administration Protocol Apixaban 5 mg 08/03/21 21:00 08/07/21 22:34 Apixaban 5 Mg Tablet PO 5 mg BID BONIFACIO Administration Atorvastatin Calcium 20 mg 08/03/21 21:00 08/07/21 22:33 Atorvastatin Calcium 20 Mg Tablet PO 20 mg BEDTIME BONIFACIO Administration Benztropine Mesylate 1 mg 08/03/21 21:00 08/07/21 22:34 Benztropine Mesylate 1 Mg Tablet PO 1 mg BID BONIFACIO Administration Bupropion HCl 300 mg 08/03/21 18:30 08/07/21 08:42 Bupropion Hcl Xl 300 Mg Tab.Er.24h PO 300 mg DAILY BONIFACIO Administration Hydroxyzine HCl 25 mg 08/03/21 22:08 08/06/21 14:33 Hydroxyzine Hcl 25 Mg Tablet PO 25 mg Q6H PRN Administration Anxiety Lisinopril 5 mg 08/03/21 19:00 08/07/21 08:43 Lisinopril 5 Mg Tablet PO 5 mg DAILY BONIFACIO Administration Protocol Loratadine 10 mg 08/04/21 09:00 08/07/21 08:42 Loratadine 10 Mg Tablet PO 10 mg DAILY BONIFACIO Administration Magnesium Hydroxide 30 ml 08/03/21 22:08 08/07/21 08:42 Milk Of Magnesia 30 Ml Oral.Susp PO 30 ml DAILY PRN Administration Constipation Melatonin 3 mg 08/03/21 18:19 08/07/21 23:35 Melatonin 3 Mg Tablet PO 3 mg BEDTIME PRN Administration Insomnia Mirtazapine 30 mg 08/03/21 21:00 08/07/21 22:33 Mirtazapine 15 Mg Tablet PO 30 mg BEDTIME BONIFACIO Administration Multivitamins/Vitamin C 1 tab 08/04/21 09:00 08/07/21 08:43 Multivitamin Tablet PO 1 tab DAILY BONIFACIO Administration Olanzapine 20 mg 08/03/21 21:00 08/07/21 22:33 Olanzapine 10 Mg Tablet PO 20 mg BEDTIME BONIFACIO Administration Senna 8.6 mg 08/03/21 18:19 Sennosides 8.6 Mg Tablet PO DAILY PRN Constipation Simethicone 80 mg 08/03/21 18:30 Simethicone 80 Mg Tab.Chew PO QID PRN gas Thiamine HCl 100 mg 08/03/21 18:30 08/07/21 08:43 Thiamine Hcl 100 Mg Tablet PO 100 mg DAILY BONIFACIO Administration Vitamin D 50 mcg 08/03/21 18:30 08/07/21 08:43 Cholecalciferol (Vitamin D3) 25 Mcg Tablet PO 50 mcg DAILY BONIFACIO Administration Allergies Allergies Allergy/AdvReac Type Severity Reaction Status Date / Time hydrochlorothiazide Allergy Unknown UNKNOWN Verified 08/04/21 06:39 [HYDROCHLOROTHIAZIDE] risperidone [From RISPERDAL] Allergy Unknown hives Verified 08/04/21 06:39 trazodone [TRAZODONE] AdvReac Unknown FEELS VERY Verified 08/04/21 06:39 SLEEPY ENVIRONMENTAL Allergy Unknown ITCHY EYES Uncoded 08/17/20 17:36 Assessment & Plan Assessment & Plan (1) Bipolar II disorder major depressive with melancholic features: Status: Acute Code(s): F31.81 - Bipolar II disorder (2) Cocaine use disorder, moderate, dependence: Status: Acute Code(s): F14.20 - Cocaine dependence, uncomplicated Assessment and Plan: Ms. Eagle is a 66 year-old woman with multiple inpatient psychiatric admission, hx of Bipolar Disorder and cocaine use, possibly as well PD. She was brought to [facility] [place] [facility] by daughter after she was assessed in the community by [facility] crisis due to pt reporting increase depression, anhedonia, suicidal ideation with plan to starve herself to , which pt continues to report despite eating 100% of meals and adequately drinking fluid. His utox was positive for cocaine. Her CMB notable for hyponatremia (133 on 08/03; 130 08/05; 136 / ), pt on trileptal which will be hold and pt fluid restriction to 1800cc. PLAN 1. Admit to M3 2. Stop trileptal, recheck Na, fluid restriction to 1800cc. 3. Obtain collateral information 4. Consider once mood more stable to complete MOCA given concerns of cognitive decline 5. Aftercare planning. Greater than 50% of the session was spent on counseling and/or coordination of care Reason for contiued inpatient stay Substantial Risk for: harm to self and inability to function
--- NOTE | 2021-08-07 16:06 | MHC.CLN ---
F/U PATIENT STATED THAT SHE IS NOT EATING WELL. WOULD LIKE ENSURE TWICE A DAY. ADDED ENSURE 240 ML BID (700 KCAL, 40 G PROTEIN).
[2021-08-07 18:00] VITALS: BP 143/77; PULSE 71; TEMP 35.9; O2SAT 99
[2021-08-07] MEDS: Mirtazapine 15 MG TABLET 30 MG PO (22:33)
[2021-08-07] MEDS: Atorvastatin Calcium 20 MG TABLET PO (22:33)
[2021-08-07] MEDS: OLANZapine 10 MG TABLET 20 MG PO (22:33)
[2021-08-07] MEDS: Melatonin 3 MG TABLET PO (23:35)
--- NOTE | 2021-08-08 08:51 | HO.PSYCHPN ---
Subjective Subjective Date of Service: 08/10/21 Reason For Visit: Depression, SI Interim History: Pt mostly in bed. She continues to endorse depressed mood, anhedonia, low energy, memory problems. Pt reports that she regrets not having by means of starvation. She continues to endorse poor appetite but eating 100% and snacks throughout the day. She is also asking for ensure. She reports suicidal ideaiton with plan to starve to . Review of Systems Review of Systems Constitutional : No Fever, No Chills ENT/Mouth : No Ear Pain, No Nasal Congestion, No sore throat Eyes: No Eye Pain, No Swelling, No Redness Cardiovascular : No Chest Pain, No SOB Respiratory : No Cough, No Sputum, No Dyspnea Gastrointestinal : No Nausea, No Vomiting, No Diarrhea, No Hematochezia, No Melena Genitourinary : No Dysuria, No Urinary Frequency, No Hematuria Musculoskeletal : No Myalgias Skin : No Skin Lesions, No rash Neuro : No Weakness, No Numbness, No Paresthesias, No Dizziness, No Headache Psych : positive Anxiety, positive Depression, positive SI no HI Heme/Lymph: No Lymphadenopathy Endocrine : No Polyuria, No Polydipsia All other systems reviewed and are negative Constitutional: Reports fatigue Denies dysphagia Cardiovascular: Denies chest pain, Denies chest pain with activity, Denies lightheadedness and Denies dyspnea Respiratory: Denies chest congestion, Denies cough and Denies dyspnea Gastrointestinal: Denies constipation, Denies dysphagia, Denies loose stools, Denies nausea and Denies vomiting Musculoskeletal: Denies no additional musculoskeletal complaints Psychiatric: Reports depression, Reports hopelessness and Reports anhedonia Endocrine: Reports fatigue Mental Status Exam Mental Status Exam Narrative: Appearance: casually groomed, fair hygiene in NAD Behavior:superficially cooperative psychomotor:no agitation or retardation noted Speech:clear, normal rate/rhythm/volume, spontaneous Thought process:tangential Thought content:no signs of psychosis, hopeless, depressed Mood: depressed Affect: blunted SI:with plan to starve self to but note that pt eating 100% of her meals HI:none VH/AH:none Delusions: none Insight/judgment:poor x 2. Memory/cog: alert, oriented x 3. Pending MOCA Diagnostics Vital Signs (24Hr): Vital Signs - 24 hr 08/09/21 20:32 Temperature 97.5 F Pulse Rate 64 Blood Pressure 107/66 Pulse Oximetry 98 Body Mass Index 26.6 Labs Results: 08/03/21 18:17 08/06/21 06:51 Labs: Laboratory Results - last 48 hr 08/10/21 08/10/21 06:51 06:51 Estimat Average Glucose 105 Hemoglobin A1c % 5.3 Triglycerides 202 Cholesterol 154 LDL Cholesterol, Calc 74 HDL Cholesterol 40 Medications Medications Current Medications Generic Name Dose Route Start Last Admin Trade Name Freq PRN Reason Stop Dose Admin Acetaminophen 650 mg 08/03/21 22:08 08/08/21 10:58 Acetaminophen 325 Mg Tablet PO 650 mg Q6H PRN Administration Headache/Pain Mild Scale (1-3) Al Hydroxide/Mg Hydroxide 30 ml 08/03/21 22:08 Magnesium Hydrox/Alum Hydrox 30 Ml Oral.Susp PO Q6H PRN Heartburn/Nausea Albuterol Sulfate 2 puff 08/03/21 18:19 08/06/21 22:02 Albuterol Sulfate 90 Mcg 8 Gm Inhaler INHALE 2 puff Q4H PRN Administration Wheezing Amlodipine Besylate 10 mg 08/03/21 18:30 08/09/21 08:28 Amlodipine Besylate 10 Mg Tablet PO 10 mg DAILY BONIFACIO Administration Protocol Apixaban 5 mg 08/03/21 21:00 08/09/21 22:00 Apixaban 5 Mg Tablet PO 5 mg BID BONIFACIO Administration Atorvastatin Calcium 20 mg 08/03/21 21:00 08/09/21 22:00 Atorvastatin Calcium 20 Mg Tablet PO 20 mg BEDTIME BONIFACIO Administration Benztropine Mesylate 1 mg 08/03/21 21:00 08/09/21 22:00 Benztropine Mesylate 1 Mg Tablet PO 1 mg BID BONIFACIO Administration Bupropion HCl 300 mg 08/03/21 18:30 08/09/21 08:27 Bupropion Hcl Xl 300 Mg Tab.Er.24h PO 300 mg DAILY BONIFACIO Administration Hydroxyzine HCl 25 mg 08/03/21 22:08 08/09/21 12:38 Hydroxyzine Hcl 25 Mg Tablet PO 25 mg Q6H PRN Administration Anxiety Lisinopril 5 mg 08/03/21 19:00 08/09/21 08:28 Lisinopril 5 Mg Tablet PO 5 mg DAILY BONIFACIO Administration Protocol Loratadine 10 mg 08/04/21 09:00 08/09/21 08:28 Loratadine 10 Mg Tablet PO 10 mg DAILY BONIFACIO Administration Magnesium Hydroxide 30 ml 08/03/21 22:08 08/07/21 08:42 Milk Of Magnesia 30 Ml Oral.Susp PO 30 ml DAILY PRN Administration Constipation Melatonin 3 mg 08/03/21 18:19 08/09/21 22:00 Melatonin 3 Mg Tablet PO 3 mg BEDTIME PRN Administration Insomnia Mirtazapine 30 mg 08/03/21 21:00 08/09/21 22:00 Mirtazapine 15 Mg Tablet PO 30 mg BEDTIME BONIFACIO Administration Multivitamins/Vitamin C 1 tab 08/04/21 09:00 08/09/21 08:28 Multivitamin Tablet PO 1 tab DAILY BONIFACIO Administration Olanzapine 20 mg 08/03/21 21:00 08/09/21 22:00 Olanzapine 10 Mg Tablet PO 20 mg BEDTIME BONIFACIO Administration Senna 8.6 mg 08/03/21 18:19 Sennosides 8.6 Mg Tablet PO DAILY PRN Constipation Simethicone 80 mg 08/03/21 18:30 Simethicone 80 Mg Tab.Chew PO QID PRN gas Vitamin D 50 mcg 08/03/21 18:30 08/09/21 08:26 Cholecalciferol (Vitamin D3) 25 Mcg Tablet PO 50 mcg DAILY BONIFACIO Administration Allergies Allergies Allergy/AdvReac Type Severity Reaction Status Date / Time hydrochlorothiazide Allergy Unknown UNKNOWN Verified 08/04/21 06:39 [HYDROCHLOROTHIAZIDE] risperidone [From RISPERDAL] Allergy Unknown hives Verified 08/04/21 06:39 trazodone [TRAZODONE] AdvReac Unknown FEELS VERY Verified 08/04/21 06:39 SLEEPY ENVIRONMENTAL Allergy Unknown ITCHY EYES Uncoded 08/17/20 17:36 Assessment & Plan Assessment & Plan (1) Bipolar II disorder major depressive with melancholic features: Status: Acute Code(s): F31.81 - Bipolar II disorder (2) Cocaine use disorder, moderate, dependence: Status: Acute Code(s): F14.20 - Cocaine dependence, uncomplicated Assessment and Plan: Ms. Eagle is a 66 year-old woman with multiple inpatient psychiatric admission, hx of Bipolar Disorder and cocaine use, possibly as well PD. She was brought [place] [facility] [place] daughter after she was assessed in the community by N crisis due to pt reporting increase depression, anhedonia, suicidal ideation with plan to starve herself to , which pt continues to report despite eating 100% of meals and adequately drinking fluid. His utox was positive for cocaine. Her CMB notable for hyponatremia (133 on 08/03; 130 08/05; 136 08/06 ), pt on trileptal which will be hold and pt fluid restriction to 1800cc. PLAN 1. Admit to M3 2. Stop trileptal, recheck Na, fluid restriction to 1800cc. 3. Obtain collateral information 4. Consider once mood more stable to complete MOCA given concerns of cognitive decline 5. Aftercare planning. Greater than 50% of the session was spent on counseling and/or coordination of care Reason for contiued inpatient stay Substantial Risk for: harm to self and inability to function
[2021-08-08] MEDS: Cholecalciferol (Vitamin D3) 25 MCG TABLET 50 MCG PO (09:15)
[2021-08-08] MEDS: Apixaban 5 MG TABLET PO ×2 (09:16→22:11)
[2021-08-08] MEDS: Thiamine HCL 100 MG TABLET PO (09:16)
[2021-08-08] MEDS: Benztropine Mesylate 1 MG TABLET PO ×2 (09:17→22:11)
[2021-08-08] MEDS: buPROPion HCl XL 300 MG TAB.ER.24H PO (09:18)
[2021-08-08 09:19] VITALS: BP 114/61
[2021-08-08] MEDS: amLODIPine Besylate 10 MG TABLET PO (09:19)
[2021-08-08] MEDS: Multivitamin TABLET 1 TAB PO (09:19)
[2021-08-08 09:20] VITALS: BP 114/61
[2021-08-08] MEDS: Loratadine 10 MG TABLET PO (09:20)
[2021-08-08] MEDS: lisinopriL 5 MG TABLET PO (09:20)
[2021-08-08 09:27] VITALS: BP 133/73; PULSE 71; O2SAT 100
[2021-08-08] MEDS: Acetaminophen 325 MG TABLET 650 MG PO (10:58)
[2021-08-08] MEDS: hydrOXYzine HCL 25 MG TABLET PO (11:00)
[2021-08-08 20:52] VITALS: BP 108/63; PULSE 62; TEMP 36.3; O2SAT 100
[2021-08-08] MEDS: OLANZapine 10 MG TABLET 20 MG PO (22:11)
[2021-08-08] MEDS: Mirtazapine 15 MG TABLET 30 MG PO (22:12)
[2021-08-08] MEDS: Atorvastatin Calcium 20 MG TABLET PO (22:12)
[2021-08-08] MEDS: Melatonin 3 MG TABLET PO (22:12)
[2021-08-09 06:00] VITALS: BP 132/65; PULSE 61; RESP 18; TEMP 36.6; O2SAT 99
[2021-08-09] MEDS: Cholecalciferol (Vitamin D3) 25 MCG TABLET 50 MCG PO (08:26)
[2021-08-09] MEDS: buPROPion HCl XL 300 MG TAB.ER.24H PO (08:27)
[2021-08-09] MEDS: Benztropine Mesylate 1 MG TABLET PO ×2 (08:27→22:00)
[2021-08-09 08:28] VITALS: BP 132/65; PULSE 61
[2021-08-09] MEDS: Multivitamin TABLET 1 TAB PO (08:28)
[2021-08-09] MEDS: Apixaban 5 MG TABLET PO ×2 (08:28→22:00)
[2021-08-09] MEDS: amLODIPine Besylate 10 MG TABLET PO (08:28)
[2021-08-09] MEDS: Loratadine 10 MG TABLET PO (08:28)
[2021-08-09] MEDS: lisinopriL 5 MG TABLET PO (08:28)
--- NOTE | 2021-08-09 08:52 | HO.PSYCHPN ---
Subjective Subjective Date of Service: 08/10/21 Reason For Visit: Depression, SI Subjective Notes: Conditional Voluntary Interim History: Pt slightly more visible today. Pt tearful about effects of ongoing cocaine use and SI on daughter. She reports feeling a burden to her daughter. She states I love life but sometimes I feel like there's no much for me to be on this earth. Pt reports some guilt/shame related to relapse on cocaine. She continues to report suicidal ideation mostly passive. We discussed starting topamax for mood and decrease cocaine cravings. Medication Compliance: Yes Side effects from medications: No Attending Groups: Intermittent Review of Systems Review of Systems Constitutional : No Fever, No Chills ENT/Mouth : No Ear Pain, No Nasal Congestion, No sore throat Eyes: No Eye Pain, No Swelling, No Redness Cardiovascular : No Chest Pain, No SOB Respiratory : No Cough, No Sputum, No Dyspnea Gastrointestinal : No Nausea, No Vomiting, No Diarrhea, No Hematochezia, No Melena Genitourinary : No Dysuria, No Urinary Frequency, No Hematuria Musculoskeletal : No Myalgias Skin : No Skin Lesions, No rash Neuro : No Weakness, No Numbness, No Paresthesias, No Dizziness, No Headache Psych : positive Anxiety, positive Depression, positive SI no HI Heme/Lymph: No Lymphadenopathy Endocrine : No Polyuria, No Polydipsia All other systems reviewed and are negative Constitutional: Reports fatigue Denies dysphagia Cardiovascular: Denies chest pain, Denies chest pain with activity, Denies lightheadedness and Denies dyspnea Respiratory: Denies chest congestion, Denies cough and Denies dyspnea Gastrointestinal: Denies constipation, Denies dysphagia, Denies loose stools, Denies nausea and Denies vomiting Musculoskeletal: Denies no additional musculoskeletal complaints Psychiatric: Reports depression, Reports hopelessness and Reports anhedonia Endocrine: Reports fatigue Mental Status Exam Mental Status Exam Narrative: Appearance: casually groomed, fair hygiene in NAD Behavior:superficially cooperative psychomotor:no agitation or retardation noted Speech:clear, normal rate/rhythm/volume, spontaneous Thought process:tangential Thought content:no signs of psychosis, hopeless, depressed Mood: depressed Affect: blunted SI:with plan to starve self to but note that pt eating 100% of her meals HI:none VH/AH:none Delusions: none Insight/judgment:poor x 2. Memory/cog: alert, oriented x 3. Pending MOCA Diagnostics Vital Signs (24Hr): Vital Signs - 24 hr 08/09/21 20:32 Temperature 97.5 F Pulse Rate 64 Blood Pressure 107/66 Pulse Oximetry 98 Body Mass Index 26.6 Labs Results: 08/03/21 18:17 08/06/21 06:51 Labs: Laboratory Results - last 48 hr 08/10/21 08/10/21 06:51 06:51 Estimat Average Glucose 105 Hemoglobin A1c % 5.3 Triglycerides 202 Cholesterol 154 LDL Cholesterol, Calc 74 HDL Cholesterol 40 Medications Medications Current Medications Generic Name Dose Route Start Last Admin Trade Name Freq PRN Reason Stop Dose Admin Acetaminophen 650 mg 08/03/21 22:08 08/08/21 10:58 Acetaminophen 325 Mg Tablet PO 650 mg Q6H PRN Administration Headache/Pain Mild Scale (1-3) Al Hydroxide/Mg Hydroxide 30 ml 08/03/21 22:08 Magnesium Hydrox/Alum Hydrox 30 Ml Oral.Susp PO Q6H PRN Heartburn/Nausea Albuterol Sulfate 2 puff 08/03/21 18:19 08/06/21 22:02 Albuterol Sulfate 90 Mcg 8 Gm Inhaler INHALE 2 puff Q4H PRN Administration Wheezing Amlodipine Besylate 10 mg 08/03/21 18:30 08/09/21 08:28 Amlodipine Besylate 10 Mg Tablet PO 10 mg DAILY BONIFACIO Administration Protocol Apixaban 5 mg 08/03/21 21:00 08/09/21 22:00 Apixaban 5 Mg Tablet PO 5 mg BID BONIFACIO Administration Atorvastatin Calcium 20 mg 08/03/21 21:00 08/09/21 22:00 Atorvastatin Calcium 20 Mg Tablet PO 20 mg BEDTIME BONIFACIO Administration Benztropine Mesylate 1 mg 08/03/21 21:00 08/09/21 22:00 Benztropine Mesylate 1 Mg Tablet PO 1 mg BID BONIFACIO Administration Bupropion HCl 300 mg 08/03/21 18:30 08/09/21 08:27 Bupropion Hcl Xl 300 Mg Tab.Er.24h PO 300 mg DAILY BONIFACIO Administration Hydroxyzine HCl 25 mg 08/03/21 22:08 08/09/21 12:38 Hydroxyzine Hcl 25 Mg Tablet PO 25 mg Q6H PRN Administration Anxiety Lisinopril 5 mg 08/03/21 19:00 08/09/21 08:28 Lisinopril 5 Mg Tablet PO 5 mg DAILY BONIFACIO Administration Protocol Loratadine 10 mg 08/04/21 09:00 08/09/21 08:28 Loratadine 10 Mg Tablet PO 10 mg DAILY BONIFACIO Administration Magnesium Hydroxide 30 ml 08/03/21 22:08 08/07/21 08:42 Milk Of Magnesia 30 Ml Oral.Susp PO 30 ml DAILY PRN Administration Constipation Melatonin 3 mg 08/03/21 18:19 08/09/21 22:00 Melatonin 3 Mg Tablet PO 3 mg BEDTIME PRN Administration Insomnia Mirtazapine 30 mg 08/03/21 21:00 08/09/21 22:00 Mirtazapine 15 Mg Tablet PO 30 mg BEDTIME BONIFACIO Administration Multivitamins/Vitamin C 1 tab 08/04/21 09:00 08/09/21 08:28 Multivitamin Tablet PO 1 tab DAILY BONIFACIO Administration Olanzapine 20 mg 08/03/21 21:00 08/09/21 22:00 Olanzapine 10 Mg Tablet PO 20 mg BEDTIME BONIFACIO Administration Senna 8.6 mg 08/03/21 18:19 Sennosides 8.6 Mg Tablet PO DAILY PRN Constipation Simethicone 80 mg 08/03/21 18:30 Simethicone 80 Mg Tab.Chew PO QID PRN gas Vitamin D 50 mcg 08/03/21 18:30 08/09/21 08:26 Cholecalciferol (Vitamin D3) 25 Mcg Tablet PO 50 mcg DAILY BONIFACIO Administration Allergies Allergies Allergy/AdvReac Type Severity Reaction Status Date / Time hydrochlorothiazide Allergy Unknown UNKNOWN Verified 08/04/21 06:39 [HYDROCHLOROTHIAZIDE] risperidone [From RISPERDAL] Allergy Unknown hives Verified 08/04/21 06:39 trazodone [TRAZODONE] AdvReac Unknown FEELS VERY Verified 08/04/21 06:39 SLEEPY ENVIRONMENTAL Allergy Unknown ITCHY EYES Uncoded 08/17/20 17:36 Assessment & Plan Assessment & Plan (1) Bipolar II disorder major depressive with melancholic features: Status: Acute Code(s): F31.81 - Bipolar II disorder (2) Cocaine use disorder, moderate, dependence: Status: Acute Code(s): F14.20 - Cocaine dependence, uncomplicated Assessment and Plan: Ms. Eagle is a 66 year-old woman with multiple inpatient psychiatric admission, hx of Bipolar Disorder and cocaine use, possibly as well PD. She was brought to [facility] [place] [facility] by daughter after she was assessed in the community by N crisis due to pt reporting increase depression, anhedonia, suicidal ideation with plan to starve herself to , which pt continues to report despite eating 100% of meals and adequately drinking fluid. His utox was positive for cocaine. Her CMB notable for hyponatremia (133 on 08/03; 130 /; 136 / ), pt on trileptal which will be hold and pt fluid restriction to 1800cc. PLAN 1. Admit to M3 2. Stop trileptal, recheck Na, fluid restriction to 1800cc. 3. Start topamax 25mg po qhs for mood/cocaine cravings. 4. Consider once mood more stable to complete MOCA given concerns of cognitive decline 5. Aftercare planning. Greater than 50% of the session was spent on counseling and/or coordination of care Reason for contiued inpatient stay Substantial Risk for: harm to self and inability to function
[2021-08-09] MEDS: hydrOXYzine HCL 25 MG TABLET PO (12:38)
[2021-08-09 20:32] VITALS: BP 107/66; PULSE 64; TEMP 36.4; O2SAT 98
[2021-08-09] MEDS: Mirtazapine 15 MG TABLET 30 MG PO (22:00)
[2021-08-09] MEDS: Atorvastatin Calcium 20 MG TABLET PO (22:00)
[2021-08-09] MEDS: Melatonin 3 MG TABLET PO (22:00)
[2021-08-09] MEDS: OLANZapine 10 MG TABLET 20 MG PO (22:00)
[2021-08-10 06:00] VITALS: BP 132/62; PULSE 64; RESP 20; TEMP 36; O2SAT 98
[2021-08-10 07:36] LABS: Cholesterol 154 mg/dL; HDL Cholesterol 40 mg/dL; LDL Cholesterol Calculated 74 mg/dl; Triglycerides 202 mg/dL
[2021-08-10 07:37] LABS: Estimated Average Glucose 105 mg/dL; Hemoglobin A1C 101.4414 umol/L; Hemoglobin A1c % 5.3 %
[2021-08-10] MEDS: lisinopriL 5 MG TABLET PO (09:08)
[2021-08-10] MEDS: Benztropine Mesylate 1 MG TABLET PO ×2 (09:08→22:11)
[2021-08-10] MEDS: Cholecalciferol (Vitamin D3) 25 MCG TABLET 50 MCG PO (09:08)
[2021-08-10] MEDS: Loratadine 10 MG TABLET PO (09:08)
[2021-08-10] MEDS: Apixaban 5 MG TABLET PO ×2 (09:08→22:11)
[2021-08-10] MEDS: amLODIPine Besylate 10 MG TABLET PO (09:08)
[2021-08-10] MEDS: buPROPion HCl XL 300 MG TAB.ER.24H PO (09:08)
[2021-08-10] MEDS: Multivitamin TABLET 1 TAB PO (09:08)
--- NOTE | 2021-08-10 10:47 | HO.PSYCHPN ---
Subjective Subjective Date of Service: 08/10/21 Reason For Visit: Depression, SI Interim History: pt found resting in her bed mid-morning. agreeable to interview. c/o ongoing SI, ego dystonic, and CAH to harm herself. states she manages these symptoms by just dealing. MD suggests she develop coping skills, recommends she attend groups to do so. per staff, not attending groups. isolative. CAH to harm self. c/o insomnia but sleeps well. eating more than 50% of meals. Mental Status Exam Mental Status Exam Narrative: appropriately dressed and groomed. no PMA/PMR. cooperative. speech nml rate, decr amount, nml latency. thoughts linear and logical. affect constricted, hypo-intense. +SI, ego dystonic. no HI/AVH expressed. Diagnostics Vital Signs (24Hr): Vital Signs - 24 hr 08/09/21 20:32 08/10/21 06:00 Temperature 97.5 F 96.8 F Pulse Rate 64 64 Respiratory Rate 20 Blood Pressure 107/66 132/62 Pulse Oximetry 98 98 Body Mass Index 26.6 Labs Results: 08/03/21 18:17 08/06/21 06:51 Labs: Laboratory Results - last 48 hr 08/10/21 08/10/21 06:51 06:51 Estimat Average Glucose 105 Hemoglobin A1c % 5.3 Triglycerides 202 Cholesterol 154 LDL Cholesterol, Calc 74 HDL Cholesterol 40 Medications Medications Current Medications Generic Name Dose Route Start Last Admin Trade Name Freq PRN Reason Stop Dose Admin Acetaminophen 650 mg 08/03/21 22:08 08/08/21 10:58 Acetaminophen 325 Mg Tablet PO 650 mg Q6H PRN Administration Headache/Pain Mild Scale (1-3) Al Hydroxide/Mg Hydroxide 30 ml 08/03/21 22:08 Magnesium Hydrox/Alum Hydrox 30 Ml Oral.Susp PO Q6H PRN Heartburn/Nausea Albuterol Sulfate 2 puff 08/03/21 18:19 08/06/21 22:02 Albuterol Sulfate 90 Mcg 8 Gm Inhaler INHALE 2 puff Q4H PRN Administration Wheezing Amlodipine Besylate 10 mg 08/03/21 18:30 08/10/21 09:08 Amlodipine Besylate 10 Mg Tablet PO 10 mg DAILY BONIFACIO Administration Protocol Apixaban 5 mg 08/03/21 21:00 08/10/21 09:08 Apixaban 5 Mg Tablet PO 5 mg BID BONIFACIO Administration Atorvastatin Calcium 20 mg 08/03/21 21:00 08/09/21 22:00 Atorvastatin Calcium 20 Mg Tablet PO 20 mg BEDTIME BONIFACIO Administration Benztropine Mesylate 1 mg 08/03/21 21:00 08/10/21 09:08 Benztropine Mesylate 1 Mg Tablet PO 1 mg BID BONIFACIO Administration Bupropion HCl 300 mg 08/03/21 18:30 08/10/21 09:08 Bupropion Hcl Xl 300 Mg Tab.Er.24h PO 300 mg DAILY BONIFACIO Administration Hydroxyzine HCl 25 mg 08/03/21 22:08 08/09/21 12:38 Hydroxyzine Hcl 25 Mg Tablet PO 25 mg Q6H PRN Administration Anxiety Lisinopril 5 mg 08/03/21 19:00 08/10/21 09:08 Lisinopril 5 Mg Tablet PO 5 mg DAILY BONIFACIO Administration Protocol Loratadine 10 mg 08/04/21 09:00 08/10/21 09:08 Loratadine 10 Mg Tablet PO 10 mg DAILY BONIFACIO Administration Magnesium Hydroxide 30 ml 08/03/21 22:08 08/07/21 08:42 Milk Of Magnesia 30 Ml Oral.Susp PO 30 ml DAILY PRN Administration Constipation Melatonin 3 mg 08/03/21 18:19 08/09/21 22:00 Melatonin 3 Mg Tablet PO 3 mg BEDTIME PRN Administration Insomnia Mirtazapine 30 mg 08/03/21 21:00 08/09/21 22:00 Mirtazapine 15 Mg Tablet PO 30 mg BEDTIME BONIFACIO Administration Multivitamins/Vitamin C 1 tab 08/04/21 09:00 08/10/21 09:08 Multivitamin Tablet PO 1 tab DAILY BONIFACIO Administration Olanzapine 20 mg 08/03/21 21:00 08/09/21 22:00 Olanzapine 10 Mg Tablet PO 20 mg BEDTIME BONIFACIO Administration Senna 8.6 mg 08/03/21 18:19 Sennosides 8.6 Mg Tablet PO DAILY PRN Constipation Simethicone 80 mg 08/03/21 18:30 Simethicone 80 Mg Tab.Chew PO QID PRN gas Topiramate 25 mg 08/10/21 21:00 Topiramate 25 Mg Tablet PO BEDTIME BONIFACIO Vitamin D 50 mcg 08/03/21 18:30 09/10/21 09:08 Cholecalciferol (Vitamin D3) 25 Mcg Tablet PO 50 mcg DAILY BONIFACIO Administration Allergies Allergies Allergy/AdvReac Type Severity Reaction Status Date / Time hydrochlorothiazide Allergy Unknown UNKNOWN Verified 08/04/21 06:39 [HYDROCHLOROTHIAZIDE] risperidone [From RISPERDAL] Allergy Unknown hives Verified 08/04/21 06:39 trazodone [TRAZODONE] AdvReac Unknown FEELS VERY Verified 08/04/21 06:39 SLEEPY ENVIRONMENTAL Allergy Unknown ITCHY EYES Uncoded 08/17/20 17:36 Assessment & Plan Assessment & Plan (1) Bipolar II disorder major depressive with melancholic features: Status: Acute Code(s): F31.81 - Bipolar II disorder (2) Cocaine use disorder, moderate, dependence: Status: Acute Code(s): F14.20 - Cocaine dependence, uncomplicated Assessment and Plan: Ms. Eagle is a 66 year-old woman with multiple inpatient psychiatric admission, hx of Bipolar Disorder and cocaine use, possibly as well PD. She was brought to [facility] [place] [facility] by daughter after she was assessed in the community by N crisis due to pt reporting increase depression, anhedonia, suicidal ideation with plan to starve herself to , which pt continues to report despite eating 100% of meals and adequately drinking fluid. His utox was positive for cocaine. Her CMB notable for hyponatremia (133 on 08/03; 130 /; 136 / ), pt on trileptal which will be hold and pt fluid restriction to 1800cc. PLAN 1. Admit to M3 2. Stop trileptal, recheck Na, fluid restriction to 1800cc. 3. Start topamax 25mg po qhs for mood/cocaine cravings. 4. Consider once mood more stable to complete MOCA given concerns of cognitive decline 5. Aftercare planning. Greater than 50% of the session was spent on counseling and/or coordination of care Reason for contiued inpatient stay Substantial Risk for: harm to self, inability to function and rapid decompensation
--- NOTE | 2021-08-10 18:34 | PC.NURSE ---
PPD planted left forearm. Area marked with sharpie. Pt aware to alert staff if any severe reaction. To be read on 08/12.
[2021-08-10 20:37] VITALS: BP 116/57; PULSE 62; RESP 18; TEMP 36.2; O2SAT 100
[2021-08-10] MEDS: OLANZapine 10 MG TABLET 20 MG PO (22:11)
[2021-08-10] MEDS: Atorvastatin Calcium 20 MG TABLET PO (22:11)
[2021-08-10] MEDS: Mirtazapine 15 MG TABLET 30 MG PO (22:11)
[2021-08-10] MEDS: Melatonin 3 MG TABLET PO (22:12)
[2021-08-10] MEDS: Topiramate 25 MG TABLET PO (22:12)
[2021-08-11 06:00] VITALS: BP 107/60; PULSE 56; RESP 16; TEMP 36.3; O2SAT 97
[2021-08-11 09:01] VITALS: BP 107/60; PULSE 56
[2021-08-11] MEDS: Apixaban 5 MG TABLET PO ×2 (09:01→22:13)
[2021-08-11] MEDS: Benztropine Mesylate 1 MG TABLET PO ×2 (09:01→22:13)
[2021-08-11] MEDS: buPROPion HCl XL 300 MG TAB.ER.24H PO (09:01)
[2021-08-11] MEDS: amLODIPine Besylate 10 MG TABLET PO (09:01)
[2021-08-11 09:02] VITALS: BP 107/60; PULSE 56
[2021-08-11] MEDS: Multivitamin TABLET 1 TAB PO (09:02)
[2021-08-11] MEDS: lisinopriL 5 MG TABLET PO (09:02)
[2021-08-11] MEDS: Loratadine 10 MG TABLET PO (09:02)
--- NOTE | 2021-08-11 11:06 | P.PNPSI_ITS ---
Subjective Subjective Date of Service: 08/11/21 Reason For Visit: Depression, SI Interim History: pt found resting in her bed mid-morning. agreeable to interview. C/O anxiety 06/09. Less depressed. Denies hallucinations. Says medications are helping. She was somewhat slowed, but fully alert and oriented. Knew it was 08/11 and that she is at [facility]. Denies SI. Per staff, not attending groups. isolative. c/o insomnia but sleeps well. eating more than 50% of meals. She says she is improving with her PO intake. Review of Systems Review of Systems Constitutional : No Fever, No Chills ENT/Mouth : No Ear Pain, No Nasal Congestion, No sore throat Eyes: No Eye Pain, No Swelling, No Redness Cardiovascular : No Chest Pain, No SOB Respiratory : No Cough, No Sputum, No Dyspnea Gastrointestinal : No Nausea, No Vomiting, No Diarrhea, No Hematochezia, No Melena Genitourinary : No Dysuria, No Urinary Frequency, No Hematuria Musculoskeletal : No Myalgias Skin : No Skin Lesions, No rash Neuro : No Weakness, No Numbness, No Paresthesias, No Dizziness, No Headache Psych : positive Anxiety, positive Depression, positive SI no HI Heme/Lymph: No Lymphadenopathy Endocrine : No Polyuria, No Polydipsia All other systems reviewed and are negative Constitutional: Reports fatigue Denies dysphagia Cardiovascular: Denies chest pain, Denies chest pain with activity, Denies lightheadedness and Denies dyspnea Respiratory: Denies chest congestion, Denies cough and Denies dyspnea Gastrointestinal: Denies constipation, Denies dysphagia, Denies loose stools, Denies nausea and Denies vomiting Musculoskeletal: Denies no additional musculoskeletal complaints Psychiatric: Reports depression, Reports hopelessness and Reports anhedonia Endocrine: Reports fatigue Mental Status Exam Mental Status Exam Narrative: appropriately dressed and groomed. no PMA/PMR. cooperative. speech nml rate, decr amount, nml latency. thoughts linear and logical. affect constricted, hypo-intense. +SI, ego dystonic. no HI/AVH expressed. Diagnostics Vital Signs (24Hr): Vital Signs - 24 hr 08/10/21 20:37 08/11/21 06:00 08/11/21 09:01 Temperature 97.2 F 97.3 F Pulse Rate 62 56 56 Respiratory Rate 18 16 Blood Pressure 116/57 L 107/60 107/60 Pulse Oximetry 100 97 08/11/21 09:02 Temperature Pulse Rate 56 Respiratory Rate Blood Pressure 107/60 Pulse Oximetry Body Mass Index 26.6 Labs Results: 08/03/21 18:17 08/06/21 06:51 Labs: Laboratory Results - last 48 hr 08/10/21 08/10/21 06:51 06:51 Estimat Average Glucose 105 Hemoglobin A1c % 5.3 Triglycerides 202 Cholesterol 154 LDL Cholesterol, Calc 74 HDL Cholesterol 40 Medications Medications Current Medications Generic Name Dose Route Start Last Admin Trade Name Freq PRN Reason Stop Dose Admin Acetaminophen 650 mg 08/03/21 22:08 08/08/21 10:58 Acetaminophen 325 Mg Tablet PO 650 mg Q6H PRN Administration Headache/Pain Mild Scale (1-3) Al Hydroxide/Mg Hydroxide 30 ml 08/03/21 22:08 Magnesium Hydrox/Alum Hydrox 30 Ml Oral.Susp PO Q6H PRN Heartburn/Nausea Albuterol Sulfate 2 puff 08/03/21 18:19 08/06/21 22:02 Albuterol Sulfate 90 Mcg 8 Gm Inhaler INHALE 2 puff Q4H PRN Administration Wheezing Amlodipine Besylate 10 mg 08/03/21 18:30 08/11/21 09:01 Amlodipine Besylate 10 Mg Tablet PO 10 mg DAILY BONIFACIO Administration Protocol Apixaban 5 mg 08/03/21 21:00 08/11/21 09:01 Apixaban 5 Mg Tablet PO 5 mg BID BONIFACIO Administration Atorvastatin Calcium 20 mg 08/03/21 21:00 08/10/21 22:11 Atorvastatin Calcium 20 Mg Tablet PO 20 mg BEDTIME BONIFACIO Administration Benztropine Mesylate 1 mg 08/03/21 21:00 08/11/21 09:01 Benztropine Mesylate 1 Mg Tablet PO 1 mg BID BONIFACIO Administration Bupropion HCl 300 mg 08/03/21 18:30 08/11/21 09:01 Bupropion Hcl Xl 300 Mg Tab.Er.24h PO 300 mg DAILY BONIFACIO Administration Hydroxyzine HCl 25 mg 08/03/21 22:08 08/09/21 12:38 Hydroxyzine Hcl 25 Mg Tablet PO 25 mg Q6H PRN Administration Anxiety Lisinopril 5 mg 08/03/21 19:00 08/11/21 09:02 Lisinopril 5 Mg Tablet PO 5 mg DAILY BONIFACIO Administration Protocol Loratadine 10 mg 08/04/21 09:00 08/11/21 09:02 Loratadine 10 Mg Tablet PO 10 mg DAILY BONIFACIO Administration Magnesium Hydroxide 30 ml 08/03/21 22:08 08/07/21 08:42 Milk Of Magnesia 30 Ml Oral.Susp PO 30 ml DAILY PRN Administration Constipation Melatonin 3 mg 08/03/21 18:19 08/10/21 22:12 Melatonin 3 Mg Tablet PO 3 mg BEDTIME PRN Administration Insomnia Mirtazapine 30 mg 08/03/21 21:00 08/10/21 22:11 Mirtazapine 15 Mg Tablet PO 30 mg BEDTIME BONIFACIO Administration Multivitamins/Vitamin C 1 tab 08/04/21 09:00 08/11/21 09:02 Multivitamin Tablet PO 1 tab DAILY BONIFACIO Administration Olanzapine 20 mg 08/03/21 21:00 08/10/21 22:11 Olanzapine 10 Mg Tablet PO 20 mg BEDTIME BONIFACIO Administration Senna 8.6 mg 08/03/21 18:19 Sennosides 8.6 Mg Tablet PO DAILY PRN Constipation Simethicone 80 mg 08/03/21 18:30 Simethicone 80 Mg Tab.Chew PO QID PRN gas Topiramate 25 mg 08/10/21 21:00 08/10/21 22:12 Topiramate 25 Mg Tablet PO 25 mg BEDTIME BONIFACIO Administration Vitamin D 50 mcg 08/03/21 18:30 08/11/21 09:59 Cholecalciferol (Vitamin D3) 25 Mcg Tablet PO Not Given DAILY BONIFACIO Allergies Allergies Allergy/AdvReac Type Severity Reaction Status Date / Time hydrochlorothiazide Allergy Unknown UNKNOWN Verified 08/04/21 06:39 [HYDROCHLOROTHIAZIDE] risperidone [From RISPERDAL] Allergy Unknown hives Verified 08/04/21 06:39 trazodone [TRAZODONE] AdvReac Unknown FEELS VERY Verified 08/04/21 06:39 SLEEPY ENVIRONMENTAL Allergy Unknown ITCHY EYES Uncoded 08/17/20 17:36 Assessment & Plan Assessment & Plan (1) Bipolar II disorder major depressive with melancholic features: Status: Acute Code(s): F31.81 - Bipolar II disorder (2) Cocaine use disorder, moderate, dependence: Status: Acute Code(s): F14.20 - Cocaine dependence, uncomplicated Assessment and Plan: Ms. Eagle is a 66 year-old woman with multiple inpatient psychiatric admission, hx of Bipolar Disorder and cocaine use, possibly as well PD. [place] [facility] [place] after she was assessed in the community by [facility] due to pt reporting increase depression, anhedonia, suicidal ideation with plan to starve herself to , which pt continues to report despite eating 100% of meals and adequately drinking fluid. Her utox was positive for cocaine. Her CMP notable for hyponatremia (133 on 08/03; 130 /; 136 08/06 ), pt on trileptal which will be hold and pt fluid restriction to 1800cc. PLAN 1. Admit to M3 2. Trileptaltal stopped, reorder Na 08/11/21, fluid restriction to 1800cc. 3. Topamax 25mg po qhs for mood/cocaine cravings. 4. Consider once mood more stable to complete MOCA given concerns of cognitive decline 5. Aftercare planning. Greater than 50% of the session was spent on counseling and/or coordination of care Reason for contiued inpatient stay Substantial Risk for: harm to self, inability to function and rapid decompensation
[2021-08-11 12:01] LABS: Sodium 142 mmol/L (135-145)
[2021-08-11] MEDS: Cholecalciferol (Vitamin D3) 25 MCG TABLET 50 MCG PO (14:15)
[2021-08-11 20:49] VITALS: BP 135/63; PULSE 65; RESP 18; TEMP 36.1; O2SAT 100
[2021-08-11] MEDS: Topiramate 25 MG TABLET PO (22:12)
[2021-08-11] MEDS: Mirtazapine 15 MG TABLET 30 MG PO (22:12)
[2021-08-11] MEDS: OLANZapine 10 MG TABLET 20 MG PO (22:13)
[2021-08-11] MEDS: Melatonin 3 MG TABLET PO (22:13)
[2021-08-11] MEDS: Atorvastatin Calcium 20 MG TABLET PO (22:13)
[2021-08-12] MEDS: Loratadine 10 MG TABLET PO (09:15)
[2021-08-12] MEDS: Cholecalciferol (Vitamin D3) 25 MCG TABLET 50 MCG PO (09:15)
[2021-08-12 09:16] VITALS: BP 175/72; PULSE 61
[2021-08-12] MEDS: Multivitamin TABLET 1 TAB PO (09:16)
[2021-08-12] MEDS: amLODIPine Besylate 10 MG TABLET PO (09:16)
[2021-08-12] MEDS: buPROPion HCl XL 300 MG TAB.ER.24H PO (09:16)
[2021-08-12] MEDS: lisinopriL 5 MG TABLET PO (09:16)
[2021-08-12] MEDS: Benztropine Mesylate 1 MG TABLET PO ×2 (09:16→22:07)
[2021-08-12] MEDS: Apixaban 5 MG TABLET PO ×2 (09:16→22:07)
[2021-08-12 09:38] VITALS: BP 175/72; PULSE 61; RESP 16; TEMP 36.7; O2SAT 100
[2021-08-12] MEDS: hydrOXYzine HCL 25 MG TABLET PO (12:24)
--- NOTE | 2021-08-12 20:22 | P.PNPSI_ITS ---
Subjective Subjective Date of Service: 08/12/21 Reason For Visit: Depression, SI Interim History: pt found resting in her bed mid-morning. agreeable to interview. Continues to complain of anxiety. She says she is still having hallucinations. Her Zyprexa is at a max. Less depressed but still isolative. Says medications are helping. She was somewhat slowed, but fully alert and oriented. Denies SI. Per staff, not attending groups. She says she is improving with her PO intake. Review of Systems Review of Systems Constitutional : No Fever, No Chills ENT/Mouth : No Ear Pain, No Nasal Congestion, No sore throat Eyes: No Eye Pain, No Swelling, No Redness Cardiovascular : No Chest Pain, No SOB Respiratory : No Cough, No Sputum, No Dyspnea Gastrointestinal : No Nausea, No Vomiting, No Diarrhea, No Hematochezia, No Melena Genitourinary : No Dysuria, No Urinary Frequency, No Hematuria Musculoskeletal : No Myalgias Skin : No Skin Lesions, No rash Neuro : No Weakness, No Numbness, No Paresthesias, No Dizziness, No Headache Psych : positive Anxiety, positive Depression, positive SI no HI Heme/Lymph: No Lymphadenopathy Endocrine : No Polyuria, No Polydipsia All other systems reviewed and are negative Constitutional: Reports fatigue Denies dysphagia Cardiovascular: Denies chest pain, Denies chest pain with activity, Denies lightheadedness and Denies dyspnea Respiratory: Denies chest congestion, Denies cough and Denies dyspnea Gastrointestinal: Denies constipation, Denies dysphagia, Denies loose stools, Denies nausea and Denies vomiting Musculoskeletal: Denies no additional musculoskeletal complaints Psychiatric: Reports depression, Reports hopelessness and Reports anhedonia Endocrine: Reports fatigue Mental Status Exam Mental Status Exam Narrative: appropriately dressed and groomed. no PMA/PMR. cooperative. speech nml rate, decr amount, nml latency. thoughts linear and logical. affect constricted, hypo-intense. +SI, ego dystonic. no HI/AVH expressed. Diagnostics Vital Signs (24Hr): Vital Signs - 24 hr 08/11/21 20:49 08/12/21 09:16 08/12/21 09:38 Temperature 96.9 F 98.1 F Pulse Rate 65 61 61 Respiratory Rate 18 16 Blood Pressure 135/63 175/72 H 175/72 H Pulse Oximetry 100 100 Body Mass Index 26.6 Labs Results: 08/03/21 18:17 08/11/21 11:31 Labs: Laboratory Results - last 48 hr 08/11/21 11:31 Sodium 142 Medications Medications Current Medications Generic Name Dose Route Start Last Admin Trade Name Freq PRN Reason Stop Dose Admin Acetaminophen 650 mg 08/03/21 22:08 08/08/21 10:58 Acetaminophen 325 Mg Tablet PO 650 mg Q6H PRN Administration Headache/Pain Mild Scale (1-3) Al Hydroxide/Mg Hydroxide 30 ml 08/03/21 22:08 Magnesium Hydrox/Alum Hydrox 30 Ml Oral.Susp PO Q6H PRN Heartburn/Nausea Albuterol Sulfate 2 puff 08/03/21 18:19 08/06/21 22:02 Albuterol Sulfate 90 Mcg 8 Gm Inhaler INHALE 2 puff Q4H PRN Administration Wheezing Amlodipine Besylate 10 mg 08/03/21 18:30 08/12/21 09:16 Amlodipine Besylate 10 Mg Tablet PO 10 mg DAILY BONIFACIO Administration Protocol Apixaban 5 mg 08/03/21 21:00 08/12/21 09:16 Apixaban 5 Mg Tablet PO 5 mg BID BONIFACIO Administration Atorvastatin Calcium 20 mg 08/03/21 21:00 08/11/21 22:13 Atorvastatin Calcium 20 Mg Tablet PO 20 mg BEDTIME BONIFACIO Administration Benztropine Mesylate 1 mg 08/03/21 21:00 08/12/21 09:16 Benztropine Mesylate 1 Mg Tablet PO 1 mg BID BONIFACIO Administration Bupropion HCl 300 mg 08/03/21 18:30 08/12/21 09:16 Bupropion Hcl Xl 300 Mg Tab.Er.24h PO 300 mg DAILY BONIFACIO Administration Hydroxyzine HCl 25 mg 08/03/21 22:08 08/12/21 12:24 Hydroxyzine Hcl 25 Mg Tablet PO 25 mg Q6H PRN Administration Anxiety Lisinopril 5 mg 08/03/21 19:00 08/12/21 09:16 Lisinopril 5 Mg Tablet PO 5 mg DAILY BONIFACIO Administration Protocol Loratadine 10 mg 08/04/21 09:00 08/12/21 09:15 Loratadine 10 Mg Tablet PO 10 mg DAILY BONIFACIO Administration Magnesium Hydroxide 30 ml 08/03/21 22:08 08/07/21 08:42 Milk Of Magnesia 30 Ml Oral.Susp PO 30 ml DAILY PRN Administration Constipation Melatonin 3 mg 08/03/21 18:19 08/11/21 22:13 Melatonin 3 Mg Tablet PO 3 mg BEDTIME PRN Administration Insomnia Mirtazapine 30 mg 08/03/21 21:00 08/11/21 22:12 Mirtazapine 15 Mg Tablet PO 30 mg BEDTIME BONIFACIO Administration Multivitamins/Vitamin C 1 tab 08/04/21 09:00 08/12/21 09:16 Multivitamin Tablet PO 1 tab DAILY BONIFACIO Administration Olanzapine 20 mg 08/03/21 21:00 08/11/21 22:13 Olanzapine 10 Mg Tablet PO 20 mg BEDTIME BONIFACIO Administration Senna 8.6 mg 08/03/21 18:19 Sennosides 8.6 Mg Tablet PO DAILY PRN Constipation Simethicone 80 mg 08/03/21 18:30 Simethicone 80 Mg Tab.Chew PO QID PRN gas Topiramate 25 mg 08/10/21 21:00 08/11/21 22:12 Topiramate 25 Mg Tablet PO 25 mg BEDTIME BONIFACIO Administration Vitamin D 50 mcg 08/03/21 18:30 08/12/21 09:15 Cholecalciferol (Vitamin D3) 25 Mcg Tablet PO 50 mcg DAILY BONIFACIO Administration Allergies Allergies Allergy/AdvReac Type Severity Reaction Status Date / Time hydrochlorothiazide Allergy Unknown UNKNOWN Verified 08/04/21 06:39 [HYDROCHLOROTHIAZIDE] risperidone [From RISPERDAL] Allergy Unknown hives Verified 08/04/21 06:39 trazodone [TRAZODONE] AdvReac Unknown FEELS VERY Verified 08/04/21 06:39 SLEEPY ENVIRONMENTAL Allergy Unknown ITCHY EYES Uncoded 08/17/20 17:36 Assessment & Plan Assessment & Plan (1) Bipolar II disorder major depressive with melancholic features: Status: Acute Code(s): F31.81 - Bipolar II disorder (2) Cocaine use disorder, moderate, dependence: Status: Acute Code(s): F14.20 - Cocaine dependence, uncomplicated Assessment and Plan: Ms. Eagle is a 66 year-old woman with multiple inpatient psychiatric admission, hx of Bipolar Disorder and cocaine use, possibly as well PD. She [place] [facility] [place] after she was assessed in the community by [facility] due to pt reporting increase depression, anhedonia, suicidal ideation with plan to starve herself to , which pt continues to report despite eating 100% of meals and adequately drinking fluid. Her utox was positive for cocaine. Her CMP notable for hyponatremia (133 on 08/03; 130 08/05; 136 08/06 ), pt on trileptal which will be hold and pt fluid restriction to 1800cc. PLAN 1. Admit to M3 2. Trileptaltal stopped, Sodium was 142. DC fluid restriction. 3. Topamax 25mg po qhs for mood/cocaine cravings. 4. Consider once mood more stable to complete MOCA given concerns of cognitive decline 5. Aftercare planning. Greater than 50% of the session was spent on counseling and/or coordination of care Reason for contiued inpatient stay Substantial Risk for: harm to self, inability to function and rapid decompensation
[2021-08-12 20:29] VITALS: BP 96/59; PULSE 64; TEMP 36.2; O2SAT 100
[2021-08-12] MEDS: Melatonin 3 MG TABLET PO (22:07)
[2021-08-12] MEDS: Mirtazapine 15 MG TABLET 30 MG PO (22:07)
[2021-08-12] MEDS: OLANZapine 10 MG TABLET 20 MG PO (22:07)
[2021-08-12] MEDS: Topiramate 25 MG TABLET PO (22:07)
[2021-08-12] MEDS: Atorvastatin Calcium 20 MG TABLET PO (22:07)
--- NOTE | 2021-08-13 04:55 | PC.NURSE ---
PPD on left forearm read at 2030, 0 mm induration, no redness noted.
[2021-08-13 09:30] VITALS: BP 135/65; PULSE 68; RESP 18; TEMP 36.2; O2SAT 100
[2021-08-13] MEDS: Loratadine 10 MG TABLET PO (09:30)
[2021-08-13] MEDS: amLODIPine Besylate 10 MG TABLET PO (09:30)
[2021-08-13] MEDS: buPROPion HCl XL 300 MG TAB.ER.24H PO (09:30)
[2021-08-13 09:31] VITALS: BP 135/65; PULSE 68
[2021-08-13] MEDS: lisinopriL 5 MG TABLET PO (09:31)
[2021-08-13] MEDS: Cholecalciferol (Vitamin D3) 25 MCG TABLET 50 MCG PO (09:31)
[2021-08-13] MEDS: Benztropine Mesylate 1 MG TABLET PO ×2 (09:31→22:04)
[2021-08-13] MEDS: Multivitamin TABLET 1 TAB PO (09:31)
[2021-08-13] MEDS: Apixaban 5 MG TABLET PO ×2 (09:31→22:04)
--- NOTE | 2021-08-13 11:21 | P.PNPSI_ITS ---
Subjective Subjective Date of Service: 08/13/21 Reason For Visit: Depression, SI Interim History: pt reports she continues to have CAH to harm herself, most recently this morning. she reports that they are ego dystonic. she describes her mood as 8/10, where 10 is the worst. she is concerned her sodium level is low and asks that it be checked. agrees (later sees it was checked 08/11 and found to be WNL). no other complaints or requests. per staff, pt is isolative, anx/dep 05/10. CAH to hurt self continnue. ambivalent re SI. PPD NEG. Mental Status Exam Mental Status Exam Narrative: appropriately dressed and groomed. no PMA/PMR. cooperative. speech nml rate, decr amount, nml latency. thoughts linear and logical. affect constricted, hypo-intense. +SI, ego dystonic. CAH to harm self. no HI/VH expressed. Diagnostics Vital Signs (24Hr): Vital Signs - 24 hr 08/12/21 20:29 08/13/21 09:30 08/13/21 09:31 Temperature 97.1 F 97.2 F Pulse Rate 64 68 68 Respiratory Rate 18 Blood Pressure 96/59 L 135/65 135/65 Pulse Oximetry 100 100 Body Mass Index 26.6 Labs Results: 08/03/21 18:17 08/11/21 11:31 Labs: Laboratory Results - last 48 hr 08/11/21 11:31 Sodium 142 Medications Medications Current Medications Generic Name Dose Route Start Last Admin Trade Name Freq PRN Reason Stop Dose Admin Acetaminophen 650 mg 08/03/21 22:08 08/08/21 10:58 Acetaminophen 325 Mg Tablet PO 650 mg Q6H PRN Administration Headache/Pain Mild Scale (1-3) Al Hydroxide/Mg Hydroxide 30 ml 08/03/21 22:08 Magnesium Hydrox/Alum Hydrox 30 Ml Oral.Susp PO Q6H PRN Heartburn/Nausea Albuterol Sulfate 2 puff 08/03/21 18:19 08/06/21 22:02 Albuterol Sulfate 90 Mcg 8 Gm Inhaler INHALE 2 puff Q4H PRN Administration Wheezing Amlodipine Besylate 10 mg 08/03/21 18:30 08/13/21 09:30 Amlodipine Besylate 10 Mg Tablet PO 10 mg DAILY BONIFACIO Administration Protocol Apixaban 5 mg 08/03/21 21:00 08/13/21 09:31 Apixaban 5 Mg Tablet PO 5 mg BID BONIFACIO Administration Atorvastatin Calcium 20 mg 08/03/21 21:00 08/12/21 22:07 Atorvastatin Calcium 20 Mg Tablet PO 20 mg BEDTIME BONIFACIO Administration Benztropine Mesylate 1 mg 08/03/21 21:00 08/13/21 09:31 Benztropine Mesylate 1 Mg Tablet PO 1 mg BID BONIFACIO Administration Bupropion HCl 300 mg 08/03/21 18:30 08/13/21 09:30 Bupropion Hcl Xl 300 Mg Tab.Er.24h PO 300 mg DAILY BONIFACIO Administration Hydroxyzine HCl 25 mg 08/03/21 22:08 08/12/21 12:24 Hydroxyzine Hcl 25 Mg Tablet PO 25 mg Q6H PRN Administration Anxiety Lisinopril 5 mg 08/03/21 19:00 08/13/21 09:31 Lisinopril 5 Mg Tablet PO 5 mg DAILY BONIFACIO Administration Protocol Loratadine 10 mg 08/04/21 09:00 08/13/21 09:30 Loratadine 10 Mg Tablet PO 10 mg DAILY BONIFACIO Administration Magnesium Hydroxide 30 ml 08/03/21 22:08 08/07/21 08:42 Milk Of Magnesia 30 Ml Oral.Susp PO 30 ml DAILY PRN Administration Constipation Melatonin 3 mg 08/03/21 18:19 08/12/21 22:07 Melatonin 3 Mg Tablet PO 3 mg BEDTIME PRN Administration Insomnia Mirtazapine 30 mg 08/03/21 21:00 08/12/21 22:07 Mirtazapine 15 Mg Tablet PO 30 mg BEDTIME BONIFACIO Administration Multivitamins/Vitamin C 1 tab 08/04/21 09:00 08/13/21 09:31 Multivitamin Tablet PO 1 tab DAILY BONIFACIO Administration Olanzapine 20 mg 08/03/21 21:00 08/12/21 22:07 Olanzapine 10 Mg Tablet PO 20 mg BEDTIME BONIFACIO Administration Senna 8.6 mg 08/03/21 18:19 Sennosides 8.6 Mg Tablet PO DAILY PRN Constipation Simethicone 80 mg 08/03/21 18:30 Simethicone 80 Mg Tab.Chew PO QID PRN gas Topiramate 25 mg 08/10/21 21:00 08/12/21 22:07 Topiramate 25 Mg Tablet PO 25 mg BEDTIME BONIFACIO Administration Vitamin D 50 mcg 08/03/21 18:30 08/13/21 09:31 Cholecalciferol (Vitamin D3) 25 Mcg Tablet PO 50 mcg DAILY BONIFACIO Administration Allergies Allergies Allergy/AdvReac Type Severity Reaction Status Date / Time hydrochlorothiazide Allergy Unknown UNKNOWN Verified 08/04/21 06:39 [HYDROCHLOROTHIAZIDE] risperidone [From RISPERDAL] Allergy Unknown hives Verified 08/04/21 06:39 trazodone [TRAZODONE] AdvReac Unknown FEELS VERY Verified 08/04/21 06:39 SLEEPY ENVIRONMENTAL Allergy Unknown ITCHY EYES Uncoded 08/17/20 17:36 Assessment & Plan Assessment & Plan (1) Bipolar II disorder major depressive with melancholic features: Status: Acute Code(s): F31.81 - Bipolar II disorder (2) Cocaine use disorder, moderate, dependence: Status: Acute Code(s): F14.20 - Cocaine dependence, uncomplicated Assessment and Plan: Ms. Eagle is a 66 year-old woman with multiple inpatient psychiatric admission, hx of Bipolar Disorder and cocaine use, possibly as well PD. She [place] [facility] [place] after she was assessed in the community by [facility] crisis due to pt reporting increase depression, anhedonia, suicidal ideation with plan to starve herself to , which pt continues to report despite eating 100% of meals and adequately drinking fluid. Her utox was positive for cocaine. Her CMP notable for hyponatremia (133 on 08/03; 130 9/5; 136 9/6 ), pt on trileptal which will be hold and pt fluid restriction to 1800cc. PLAN 1. Admit to M3 2. Trileptal stopped, Sodium karlo to 142. DCed fluid restriction. 3. Topamax 25mg po qhs for mood/cocaine cravings. 4. Consider once mood more stable to complete MOCA given concerns of cognitive decline 5. Aftercare planning. Greater than 50% of the session was spent on counseling and/or coordination of care Reason for contiued inpatient stay Substantial Risk for: harm to self
[2021-08-13] MEDS: Milk of Magnesia 30 ML ORAL.SUSP PO (11:57)
[2021-08-13 21:10] VITALS: BP 115/70; PULSE 66; TEMP 36.2; O2SAT 98
[2021-08-13] MEDS: Melatonin 3 MG TABLET PO (22:00)
[2021-08-13] MEDS: Mirtazapine 15 MG TABLET 30 MG PO (22:00)
[2021-08-13] MEDS: OLANZapine 10 MG TABLET 20 MG PO (22:03)
[2021-08-13] MEDS: Topiramate 25 MG TABLET PO (22:04)
[2021-08-13] MEDS: Atorvastatin Calcium 20 MG TABLET PO (22:04)
[2021-08-14 08:55] VITALS: PULSE 59; RESP 18; TEMP 36.3; O2SAT 98
[2021-08-14 08:59] VITALS: BP 124/60; PULSE 59
[2021-08-14] MEDS: lisinopriL 5 MG TABLET PO (08:59)
[2021-08-14] MEDS: buPROPion HCl XL 300 MG TAB.ER.24H PO (08:59)
[2021-08-14] MEDS: Multivitamin TABLET 1 TAB PO (08:59)
[2021-08-14 09:02] VITALS: BP 124/60; PULSE 59
[2021-08-14] MEDS: amLODIPine Besylate 10 MG TABLET PO (09:02)
[2021-08-14] MEDS: Apixaban 5 MG TABLET PO ×2 (09:02→22:04)
[2021-08-14] MEDS: Loratadine 10 MG TABLET PO (09:02)
[2021-08-14] MEDS: Cholecalciferol (Vitamin D3) 25 MCG TABLET 50 MCG PO (09:02)
[2021-08-14] MEDS: Benztropine Mesylate 1 MG TABLET PO ×2 (09:03→22:04)
--- NOTE | 2021-08-14 15:53 | HO.PSYCHPN ---
Subjective Subjective Date of Service: 08/17/21 Reason For Visit: Depression, SI Subjective Notes: Conditional Voluntary Interim History: Pt more visible in the unit. She has attended some groups. She reports decreased anxious mood, less depressed mood, more future oriented. She reports her daughter is protective factor and main source of support. Yet when talking about discharge, pt reports feeling very anxious, not feeling safe if discharged soon. Pt encouraged to continue practicing coping skills. Medication Compliance: Yes Side effects from medications: No Attending Groups: Yes Review of Systems Review of Systems Constitutional : No Fever, No Chills ENT/Mouth : No Ear Pain, No Nasal Congestion, No sore throat Eyes: No Eye Pain, No Swelling, No Redness Cardiovascular : No Chest Pain, No SOB Respiratory : No Cough, No Sputum, No Dyspnea Gastrointestinal : No Nausea, No Vomiting, No Diarrhea, No Hematochezia, No Melena Genitourinary : No Dysuria, No Urinary Frequency, No Hematuria Musculoskeletal : No Myalgias Skin : No Skin Lesions, No rash Neuro : No Weakness, No Numbness, No Paresthesias, No Dizziness, No Headache Psych : positive Anxiety, positive Depression, positive SI no HI Heme/Lymph: No Lymphadenopathy Endocrine : No Polyuria, No Polydipsia All other systems reviewed and are negative Constitutional: Reports fatigue Denies dysphagia Cardiovascular: Denies chest pain, Denies chest pain with activity, Denies lightheadedness and Denies dyspnea Respiratory: Denies chest congestion, Denies cough and Denies dyspnea Gastrointestinal: Denies constipation, Denies dysphagia, Denies loose stools, Denies nausea and Denies vomiting Musculoskeletal: Denies no additional musculoskeletal complaints Psychiatric: Reports depression, Reports hopelessness and Reports anhedonia Endocrine: Reports fatigue Mental Status Exam Mental Status Exam Narrative: Appearance: casually groomed, fair hygiene in NAD Behavior:cooperative psychomotor:no agitation or retardation noted Speech:clear, normal rate/rhythm/volume, spontaneous Thought process:tangential Thought content:no signs of psychosis, more future oriented Mood: better Affect: brighter SI:none HI:none VH/AH:none Delusions: none Insight/judgment:poor x 2. Memory/cog: alert, oriented x 3. Pending MOCA Diagnostics Vital Signs (24Hr): Vital Signs - 24 hr 08/16/21 20:22 08/17/21 06:00 Temperature 97.1 F 97.4 F Pulse Rate 72 61 Blood Pressure 134/60 121/61 Pulse Oximetry 92 100 Body Mass Index 26.6 Labs Results: 08/03/21 18:17 08/11/21 11:31 Labs: Laboratory Results - last 48 hr 08/16/21 14:02 D-Dimer < 200 Medications Medications Current Medications Acetaminophen (Acetaminophen 325 Mg Tablet) 650 mg PO Q6H PRN PRN Reason: Headache/Pain Mild Scale (1-3) Last Admin: 08/08/21 10:58 Dose: 650 mg Documented by: Al Hydroxide/Mg Hydroxide (Magnesium Hydrox/Alum Hydrox 30 Ml Oral.Susp) 30 ml PO Q6H PRN PRN Reason: Heartburn/Nausea Albuterol Sulfate (Albuterol Sulfate 90 Mcg 8 Gm Inhaler) 2 puff INHALE Q4H PRN PRN Reason: Wheezing Last Admin: 08/06/21 22:02 Dose: 2 puff Documented by: Amlodipine Besylate (Amlodipine Besylate 10 Mg Tablet) 10 mg PO DAILY [facility]; Protocol Last Admin: 08/17/21 08:55 Dose: 10 mg Documented by: Apixaban (Apixaban 5 Mg Tablet) 5 mg PO BID [facility] Last Admin: 08/17/21 08:55 Dose: 5 mg Documented by: Atorvastatin Calcium (Atorvastatin Calcium 20 Mg Tablet) 20 mg PO BEDTIME [facility] Last Admin: 08/16/21 22:16 Dose: 20 mg Documented by: Benztropine Mesylate (Benztropine Mesylate 1 Mg Tablet) 1 mg PO BID [facility] Last Admin: 08/17/21 08:54 Dose: 1 mg Documented by: Bupropion HCl (Bupropion Hcl Xl 300 Mg Tab.Er.24h) 300 mg PO DAILY [facility] Last Admin: 08/17/21 08:54 Dose: 300 mg Documented by: Haloperidol (Haloperidol 5 Mg Tablet) 5 mg PO BEDTIME [facility] Last Admin: 08/16/21 22:16 Dose: 5 mg Documented by: Hydroxyzine HCl (Hydroxyzine Hcl 25 Mg Tablet) 25 mg PO Q6H PRN PRN Reason: Anxiety Last Admin: 08/16/21 09:41 Dose: 25 mg Documented by: Lisinopril (Lisinopril 5 Mg Tablet) 5 mg PO DAILY [facility]; Protocol Last Admin: 08/17/21 08:55 Dose: 5 mg Documented by: Loratadine (Loratadine 10 Mg Tablet) 10 mg PO DAILY [facility] Last Admin: 08/17/21 08:54 Dose: 10 mg Documented by: Magnesium Hydroxide (Milk Of Magnesia 30 Ml Oral.Susp) 30 ml PO DAILY PRN PRN Reason: Constipation Last Admin: 08/13/21 11:57 Dose: 30 ml Documented by: Melatonin (Melatonin 3 Mg Tablet) 3 mg PO BEDTIME PRN PRN Reason: Insomnia Last Admin: 08/16/21 22:16 Dose: 3 mg Documented by: Mirtazapine (Mirtazapine 15 Mg Tablet) 30 mg PO BEDTIME [facility] Last Admin: 08/16/21 22:17 Dose: 30 mg Documented by: Multivitamins/Vitamin C (Multivitamin Tablet) 1 tab PO DAILY [facility] Last Admin: 08/17/21 08:55 Dose: 1 tab Documented by: Olanzapine (Olanzapine 10 Mg Tablet) 20 mg PO BEDTIME [facility] Last Admin: 08/16/21 22:16 Dose: 20 mg Documented by: Senna (Sennosides 8.6 Mg Tablet) 8.6 mg PO DAILY PRN PRN Reason: Constipation Simethicone (Simethicone 80 Mg Tab.Chew) 80 mg PO QID PRN PRN Reason: gas Topiramate (Topiramate 25 Mg Tablet) 25 mg PO BEDTIME [facility] Last Admin: 08/16/21 22:16 Dose: 25 mg Documented by: Vitamin D (Cholecalciferol (Vitamin D3) 25 Mcg Tablet) 50 mcg PO DAILY [facility] Last Admin: 08/17/21 08:54 Dose: 50 mcg Documented by: Allergies Allergies Allergy/AdvReac Type Severity Reaction Status Date / Time hydrochlorothiazide Allergy Unknown UNKNOWN Verified 08/04/21 06:39 [HYDROCHLOROTHIAZIDE] risperidone [From RISPERDAL] Allergy Unknown hives Verified 08/04/21 06:39 trazodone [TRAZODONE] AdvReac Unknown FEELS VERY Verified 08/04/21 06:39 SLEEPY ENVIRONMENTAL Allergy Unknown ITCHY EYES Uncoded 08/17/20 17:36 Assessment & Plan Assessment & Plan (1) Bipolar II disorder major depressive with melancholic features: Status: Acute Code(s): F31.81 - Bipolar II disorder (2) Cocaine use disorder, moderate, dependence: Status: Acute Code(s): F14.20 - Cocaine dependence, uncomplicated Assessment and Plan: Ms. Eagle is a 66 year-old woman with multiple inpatient psychiatric admission, hx of Bipolar Disorder and cocaine use, possibly as well PD. She was brought to [facility] by daughter after she was assessed in the community by [facility] crisis due to pt reporting increase depression, anhedonia, suicidal ideation with plan to starve herself to , which pt continues to report despite eating 100% of meals and adequately drinking fluid. Her utox was positive for cocaine. Her CMP notable for hyponatremia (133 on 08/03; 130 /; 136 / ), pt on trileptal which will be hold and pt fluid restriction to 1800cc. PLAN 1. Admit to M3 2. Trileptal stopped, Sodium karlo to 142. DCed fluid restriction. 3. Topamax 25mg po qhs for mood/cocaine cravings. 4. Continue Olanzapine, low dose haldol added for AH- if effective may consider monotherapy with haldol 5. Aftercare planning. Greater than 50% of the session was spent on counseling and/or coordination of care Reason for contiued inpatient stay Substantial Risk for: rapid decompensation
[2021-08-14 20:15] VITALS: BP 144/84; PULSE 85; RESP 18; TEMP 36.6; O2SAT 95
[2021-08-14] MEDS: Mirtazapine 15 MG TABLET 30 MG PO (22:03)
[2021-08-14] MEDS: Atorvastatin Calcium 20 MG TABLET PO (22:03)
[2021-08-14] MEDS: Melatonin 3 MG TABLET PO (22:04)
[2021-08-14] MEDS: Topiramate 25 MG TABLET PO (22:04)
[2021-08-14] MEDS: OLANZapine 10 MG TABLET 20 MG PO (22:04)
[2021-08-15 08:40] VITALS: BP 130/70; PULSE 67; RESP 18; TEMP 36.3; O2SAT 100
[2021-08-15 08:45] VITALS: BP 130/70; PULSE 67
[2021-08-15] MEDS: amLODIPine Besylate 10 MG TABLET PO (08:45)
[2021-08-15] MEDS: Benztropine Mesylate 1 MG TABLET PO ×2 (08:45→22:10)
[2021-08-15] MEDS: Multivitamin TABLET 1 TAB PO (08:45)
[2021-08-15] MEDS: lisinopriL 5 MG TABLET PO (08:45)
[2021-08-15] MEDS: Apixaban 5 MG TABLET PO ×2 (08:45→22:09)
[2021-08-15] MEDS: Cholecalciferol (Vitamin D3) 25 MCG TABLET 50 MCG PO (08:46)
[2021-08-15] MEDS: buPROPion HCl XL 300 MG TAB.ER.24H PO (08:46)
[2021-08-15] MEDS: Loratadine 10 MG TABLET PO (08:46)
[2021-08-15] MEDS: hydrOXYzine HCL 25 MG TABLET PO (09:42)
--- NOTE | 2021-08-15 15:09 | HO.PSYCHPN ---
Subjective Subjective Date of Service: 08/17/21 Reason For Visit: Depression, SI Interim History: Pt reports feeling less anxious less depressed, less auditory hallucinations but continue to have some especially at night. She denies SI, but passive SI does tend to return when discussing potential discharge. Visible in the unit,attending groups. Diagnostics Vital Signs (24Hr): Vital Signs - 24 hr 08/14/21 20:15 08/15/21 08:40 08/15/21 08:45 Temperature 97.8 F 97.3 F Pulse Rate 85 67 67 Respiratory Rate 18 18 Blood Pressure 144/84 H 130/70 130/70 Pulse Oximetry 95 100 Body Mass Index 26.6 Labs Results: 08/03/21 18:17 08/11/21 11:31 Medications Medications Current Medications Generic Name Dose Route Start Last Admin Trade Name Freq PRN Reason Stop Dose Admin Acetaminophen 650 mg 08/03/21 22:08 08/08/21 10:58 Acetaminophen 325 Mg Tablet PO 650 mg Q6H PRN Administration Headache/Pain Mild Scale (1-3) Al Hydroxide/Mg Hydroxide 30 ml 08/03/21 22:08 Magnesium Hydrox/Alum Hydrox 30 Ml Oral.Susp PO Q6H PRN Heartburn/Nausea Albuterol Sulfate 2 puff 08/03/21 18:19 08/06/21 22:02 Albuterol Sulfate 90 Mcg 8 Gm Inhaler INHALE 2 puff Q4H PRN Administration Wheezing Amlodipine Besylate 10 mg 08/03/21 18:30 08/15/21 08:45 Amlodipine Besylate 10 Mg Tablet PO 10 mg DAILY [facility] Administration Protocol Apixaban 5 mg 08/03/21 21:00 08/15/21 08:45 Apixaban 5 Mg Tablet PO 5 mg BID [facility] Administration Atorvastatin Calcium 20 mg 08/03/21 21:00 08/14/21 22:03 Atorvastatin Calcium 20 Mg Tablet PO 20 mg BEDTIME [facility] Administration Benztropine Mesylate 1 mg 08/03/21 21:00 08/15/21 08:45 Benztropine Mesylate 1 Mg Tablet PO 1 mg BID [facility] Administration Bupropion HCl 300 mg 08/03/21 18:30 08/15/21 08:46 Bupropion Hcl Xl 300 Mg Tab.Er.24h PO 300 mg DAILY [facility] Administration Hydroxyzine HCl 25 mg 08/03/21 22:08 08/15/21 09:42 Hydroxyzine Hcl 25 Mg Tablet PO 25 mg Q6H PRN Administration Anxiety Lisinopril 5 mg 08/03/21 19:00 08/15/21 08:45 Lisinopril 5 Mg Tablet PO 5 mg DAILY [facility] Administration Protocol Loratadine 10 mg 08/04/21 09:00 08/15/21 08:46 Loratadine 10 Mg Tablet PO 10 mg DAILY [facility] Administration Magnesium Hydroxide 30 ml 08/03/21 22:08 08/13/21 11:57 Milk Of Magnesia 30 Ml Oral.Susp PO 30 ml DAILY PRN Administration Constipation Melatonin 3 mg 08/03/21 18:19 08/14/21 22:04 Melatonin 3 Mg Tablet PO 3 mg BEDTIME PRN Administration Insomnia Mirtazapine 30 mg 08/03/21 21:00 08/14/21 22:03 Mirtazapine 15 Mg Tablet PO 30 mg BEDTIME [facility] Administration Multivitamins/Vitamin C 1 tab 08/04/21 09:00 08/15/21 08:45 Multivitamin Tablet PO 1 tab DAILY [facility] Administration Olanzapine 20 mg 08/03/21 21:00 08/14/21 22:04 Olanzapine 10 Mg Tablet PO 20 mg BEDTIME [facility] Administration Senna 8.6 mg 08/03/21 18:19 Sennosides 8.6 Mg Tablet PO DAILY PRN Constipation Simethicone 80 mg 08/03/21 18:30 Simethicone 80 Mg Tab.Chew PO QID PRN gas Topiramate 25 mg 08/10/21 21:00 08/14/21 22:04 Topiramate 25 Mg Tablet PO 25 mg BEDTIME [facility] Administration Vitamin D 50 mcg 08/03/21 18:30 08/15/21 08:46 Cholecalciferol (Vitamin D3) 25 Mcg Tablet PO 50 mcg DAILY [facility] Administration Allergies Allergies Allergy/AdvReac Type Severity Reaction Status Date / Time hydrochlorothiazide Allergy Unknown UNKNOWN Verified 08/04/21 06:39 [HYDROCHLOROTHIAZIDE] risperidone [From RISPERDAL] Allergy Unknown hives Verified 08/04/21 06:39 trazodone [TRAZODONE] AdvReac Unknown FEELS VERY Verified 08/04/21 06:39 SLEEPY ENVIRONMENTAL Allergy Unknown ITCHY EYES Uncoded 08/17/20 17:36 Assessment & Plan Assessment & Plan (1) Bipolar II disorder major depressive with melancholic features: Status: Acute Code(s): F31.81 - Bipolar II disorder (2) Cocaine use disorder, moderate, dependence: Status: Acute Code(s): F14.20 - Cocaine dependence, uncomplicated Assessment and Plan: Ms. Eagle is a 66 year-old woman with multiple inpatient psychiatric admission, hx of Bipolar Disorder and cocaine use, possibly as well PD. She was brought to [facility] by daughter after she was assessed in the community by N crisis due to pt reporting increase depression, anhedonia, suicidal ideation with plan to starve herself to , which pt continues to report despite eating 100% of meals and adequately drinking fluid. Her utox was positive for cocaine. Her CMP notable for hyponatremia (133 on 08/03; 130 /; 136 /6 ), pt on trileptal which will be hold and pt fluid restriction to 1800cc. PLAN 1. Admit to M3 2. Trileptal stopped, Sodium karlo to 142. DCed fluid restriction. 3. Topamax 25mg po qhs for mood/cocaine cravings. 4. Continue Olanzapine, low dose haldol added for AH- if effective may consider monotherapy with haldol 5. Aftercare planning. Greater than 50% of the session was spent on counseling and/or coordination of care Reason for contiued inpatient stay Substantial Risk for: rapid decompensation
[2021-08-15 21:36] VITALS: BP 122/63; PULSE 88; TEMP 36; O2SAT 92
[2021-08-15] MEDS: OLANZapine 10 MG TABLET 20 MG PO (22:09)
[2021-08-15] MEDS: Melatonin 3 MG TABLET PO (22:09)
[2021-08-15] MEDS: HaloperidoL 5 MG TABLET PO (22:09)
[2021-08-15] MEDS: Topiramate 25 MG TABLET PO (22:09)
[2021-08-15] MEDS: Atorvastatin Calcium 20 MG TABLET PO (22:09)
[2021-08-15] MEDS: Mirtazapine 15 MG TABLET 30 MG PO (22:10)
[2021-08-16 06:00] VITALS: BP 136/73; PULSE 68; TEMP 36.6; O2SAT 96
[2021-08-16 09:13] VITALS: BP 136/73; PULSE 68
[2021-08-16] MEDS: Apixaban 5 MG TABLET PO ×2 (09:13→22:16)
[2021-08-16] MEDS: amLODIPine Besylate 10 MG TABLET PO (09:13)
[2021-08-16] MEDS: Multivitamin TABLET 1 TAB PO (09:13)
[2021-08-16] MEDS: Cholecalciferol (Vitamin D3) 25 MCG TABLET 50 MCG PO (09:14)
[2021-08-16] MEDS: Loratadine 10 MG TABLET PO (09:14)
[2021-08-16 09:15] VITALS: BP 136/73; PULSE 68
[2021-08-16] MEDS: Benztropine Mesylate 1 MG TABLET PO ×2 (09:15→22:16)
[2021-08-16] MEDS: buPROPion HCl XL 300 MG TAB.ER.24H PO (09:15)
[2021-08-16] MEDS: lisinopriL 5 MG TABLET PO (09:15)
[2021-08-16] MEDS: hydrOXYzine HCL 25 MG TABLET PO (09:41)
[2021-08-16 14:22] LABS: D Dimer < 200 NG/ML
--- NOTE | 2021-08-16 15:52 | HO.PSYCHPN ---
Subjective Subjective Date of Service: 08/17/21 Reason For Visit: Depression, SI Subjective Notes: Conditional Voluntary Interim History: Pt continues to report feeling less anxious less depressed, less auditory hallucinations but continue to have some especially at night. She denies SI, but passive SI does tend to return when discussing potential discharge. Visible in the unit,attending groups. Review of Systems Review of Systems Constitutional : No Fever, No Chills ENT/Mouth : No Ear Pain, No Nasal Congestion, No sore throat Eyes: No Eye Pain, No Swelling, No Redness Cardiovascular : No Chest Pain, No SOB Respiratory : No Cough, No Sputum, No Dyspnea Gastrointestinal : No Nausea, No Vomiting, No Diarrhea, No Hematochezia, No Melena Genitourinary : No Dysuria, No Urinary Frequency, No Hematuria Musculoskeletal : No Myalgias Skin : No Skin Lesions, No rash Neuro : No Weakness, No Numbness, No Paresthesias, No Dizziness, No Headache Psych : positive Anxiety, positive Depression, positive SI no HI Heme/Lymph: No Lymphadenopathy Endocrine : No Polyuria, No Polydipsia All other systems reviewed and are negative Constitutional: Reports fatigue Denies dysphagia Cardiovascular: Denies chest pain, Denies chest pain with activity, Denies lightheadedness and Denies dyspnea Respiratory: Denies chest congestion, Denies cough and Denies dyspnea Gastrointestinal: Denies constipation, Denies dysphagia, Denies loose stools, Denies nausea and Denies vomiting Musculoskeletal: Denies no additional musculoskeletal complaints Psychiatric: Reports depression, Reports hopelessness and Reports anhedonia Endocrine: Reports fatigue Mental Status Exam Mental Status Exam Narrative: Appearance: casually groomed, fair hygiene in NAD Behavior:superficially cooperative psychomotor:no agitation or retardation noted Speech:clear, normal rate/rhythm/volume, spontaneous Thought process:tangential Thought content:no signs of psychosis, hopeless, depressed Mood: depressed Affect: blunted SI:with plan to starve self to but note that pt eating 100% of her meals HI:none VH/AH:none Delusions: none Insight/judgment:poor x 2. Memory/cog: alert, oriented x 3. Pending MOCA Diagnostics Vital Signs (24Hr): Vital Signs - 24 hr 08/16/21 20:22 08/17/21 06:00 Temperature 97.1 F 97.4 F Pulse Rate 72 61 Blood Pressure 134/60 121/61 Pulse Oximetry 92 100 Body Mass Index 26.6 Labs Results: 08/03/21 18:17 08/11/21 11:31 Labs: Laboratory Results - last 48 hr 08/16/21 14:02 D-Dimer < 200 Medications Medications Current Medications Acetaminophen (Acetaminophen 325 Mg Tablet) 650 mg PO Q6H PRN PRN Reason: Headache/Pain Mild Scale (1-3) Last Admin: 08/08/21 10:58 Dose: 650 mg Documented by: Al Hydroxide/Mg Hydroxide (Magnesium Hydrox/Alum Hydrox 30 Ml Oral.Susp) 30 ml PO Q6H PRN PRN Reason: Heartburn/Nausea Albuterol Sulfate (Albuterol Sulfate 90 Mcg 8 Gm Inhaler) 2 puff INHALE Q4H PRN PRN Reason: Wheezing Last Admin: 08/06/21 22:02 Dose: 2 puff Documented by: Amlodipine Besylate (Amlodipine Besylate 10 Mg Tablet) 10 mg PO DAILY [facility]; Protocol Last Admin: 08/17/21 08:55 Dose: 10 mg Documented by: Apixaban (Apixaban 5 Mg Tablet) 5 mg PO BID [facility] Last Admin: 08/17/21 08:55 Dose: 5 mg Documented by: Atorvastatin Calcium (Atorvastatin Calcium 20 Mg Tablet) 20 mg PO BEDTIME [facility] Last Admin: 08/16/21 22:16 Dose: 20 mg Documented by: Benztropine Mesylate (Benztropine Mesylate 1 Mg Tablet) 1 mg PO BID [facility] Last Admin: 08/17/21 08:54 Dose: 1 mg Documented by: Bupropion HCl (Bupropion Hcl Xl 300 Mg Tab.Er.24h) 300 mg PO DAILY [facility] Last Admin: 08/17/21 08:54 Dose: 300 mg Documented by: Haloperidol (Haloperidol 5 Mg Tablet) 5 mg PO BEDTIME [facility] Last Admin: 08/16/21 22:16 Dose: 5 mg Documented by: Hydroxyzine HCl (Hydroxyzine Hcl 25 Mg Tablet) 25 mg PO Q6H PRN PRN Reason: Anxiety Last Admin: 08/16/21 09:41 Dose: 25 mg Documented by: Lisinopril (Lisinopril 5 Mg Tablet) 5 mg PO DAILY [facility]; Protocol Last Admin: 08/17/21 08:55 Dose: 5 mg Documented by: Loratadine (Loratadine 10 Mg Tablet) 10 mg PO DAILY [facility] Last Admin: 08/17/21 08:54 Dose: 10 mg Documented by: Magnesium Hydroxide (Milk Of Magnesia 30 Ml Oral.Susp) 30 ml PO DAILY PRN PRN Reason: Constipation Last Admin: 08/13/21 11:57 Dose: 30 ml Documented by: Melatonin (Melatonin 3 Mg Tablet) 3 mg PO BEDTIME PRN PRN Reason: Insomnia Last Admin: 08/16/21 22:16 Dose: 3 mg Documented by: Mirtazapine (Mirtazapine 15 Mg Tablet) 30 mg PO BEDTIME [facility] Last Admin: 08/16/21 22:17 Dose: 30 mg Documented by: Multivitamins/Vitamin C (Multivitamin Tablet) 1 tab PO DAILY [facility] Last Admin: 08/17/21 08:55 Dose: 1 tab Documented by: Olanzapine (Olanzapine 10 Mg Tablet) 20 mg PO BEDTIME [facility] Last Admin: 08/16/21 22:16 Dose: 20 mg Documented by: Senna (Sennosides 8.6 Mg Tablet) 8.6 mg PO DAILY PRN PRN Reason: Constipation Simethicone (Simethicone 80 Mg Tab.Chew) 80 mg PO QID PRN PRN Reason: gas Topiramate (Topiramate 25 Mg Tablet) 25 mg PO BEDTIME [facility] Last Admin: 08/16/21 22:16 Dose: 25 mg Documented by: Vitamin D (Cholecalciferol (Vitamin D3) 25 Mcg Tablet) 50 mcg PO DAILY [facility] Last Admin: 08/17/21 08:54 Dose: 50 mcg Documented by: Allergies Allergies Allergy/AdvReac Type Severity Reaction Status Date / Time hydrochlorothiazide Allergy Unknown UNKNOWN Verified 08/04/21 06:39 [HYDROCHLOROTHIAZIDE] risperidone [From RISPERDAL] Allergy Unknown hives Verified 08/04/21 06:39 trazodone [TRAZODONE] AdvReac Unknown FEELS VERY Verified 08/04/21 06:39 SLEEPY ENVIRONMENTAL Allergy Unknown ITCHY EYES Uncoded 08/17/20 17:36 Assessment & Plan Assessment & Plan (1) Bipolar II disorder major depressive with melancholic features: Status: Acute Code(s): F31.81 - Bipolar II disorder (2) Cocaine use disorder, moderate, dependence: Status: Acute Code(s): F14.20 - Cocaine dependence, uncomplicated Assessment and Plan: Ms. Eagle is a 66 year-old woman with multiple inpatient psychiatric admission, hx of Bipolar Disorder and cocaine use, possibly as well PD. She was brought to [facility] by daughter after she was assessed in the community by N crisis due to pt reporting increase depression, anhedonia, suicidal ideation with plan to starve herself to , which pt continues to report despite eating 100% of meals and adequately drinking fluid. Her utox was positive for cocaine. Her CMP notable for hyponatremia (133 on 08/03; 130 /; 136 / ), pt on trileptal which will be hold and pt fluid restriction to 1800cc. PLAN 1. Admit to M3 2. Trileptal stopped, Sodium karlo to 142. DCed fluid restriction. 3. Topamax 25mg po qhs for mood/cocaine cravings. 4. Continue Olanzapine, low dose haldol added for AH- if effective may consider monotherapy with haldol 5. Aftercare planning. Greater than 50% of the session was spent on counseling and/or coordination of care Reason for contiued inpatient stay Substantial Risk for: rapid decompensation
[2021-08-16 20:22] VITALS: BP 134/60; PULSE 72; TEMP 36.2; O2SAT 92
[2021-08-16] MEDS: Topiramate 25 MG TABLET PO (22:16)
[2021-08-16] MEDS: Melatonin 3 MG TABLET PO (22:16)
[2021-08-16] MEDS: Atorvastatin Calcium 20 MG TABLET PO (22:16)
[2021-08-16] MEDS: HaloperidoL 5 MG TABLET PO (22:16)
[2021-08-16] MEDS: OLANZapine 10 MG TABLET 20 MG PO (22:16)
[2021-08-16] MEDS: Mirtazapine 15 MG TABLET 30 MG PO (22:17)
[2021-08-17 06:00] VITALS: BP 121/61; PULSE 61; TEMP 36.3; O2SAT 100
[2021-08-17] MEDS: Cholecalciferol (Vitamin D3) 25 MCG TABLET 50 MCG PO (08:54)
[2021-08-17] MEDS: buPROPion HCl XL 300 MG TAB.ER.24H PO (08:54)
[2021-08-17] MEDS: Benztropine Mesylate 1 MG TABLET PO ×2 (08:54→22:12)
[2021-08-17] MEDS: Loratadine 10 MG TABLET PO (08:54)
[2021-08-17] MEDS: amLODIPine Besylate 10 MG TABLET PO (08:55)
[2021-08-17] MEDS: Multivitamin TABLET 1 TAB PO (08:55)
[2021-08-17] MEDS: lisinopriL 5 MG TABLET PO (08:55)
[2021-08-17] MEDS: Apixaban 5 MG TABLET PO ×2 (08:55→22:12)
--- NOTE | 2021-08-17 15:55 | HO.PSYCHPN ---
Subjective Subjective Date of Service: 08/17/21 Reason For Visit: Depression, SI Subjective Notes: Conditional Voluntary Interim History: Pt more visible in the unit.Pt also with brighter affect. She has attended some groups. She reports decreased anxious mood, less depressed mood, more future oriented. She reports her daughter is protective factor and main source of support. Less anxious about discharge on Friday. Pt reminded of progress and coping skills she has to decrease fear of being on her own and disappointing daughter. Pt encouraged to continue practicing coping skills. Review of Systems Review of Systems Constitutional : No Fever, No Chills ENT/Mouth : No Ear Pain, No Nasal Congestion, No sore throat Eyes: No Eye Pain, No Swelling, No Redness Cardiovascular : No Chest Pain, No SOB Respiratory : No Cough, No Sputum, No Dyspnea Gastrointestinal : No Nausea, No Vomiting, No Diarrhea, No Hematochezia, No Melena Genitourinary : No Dysuria, No Urinary Frequency, No Hematuria Musculoskeletal : No Myalgias Skin : No Skin Lesions, No rash Neuro : No Weakness, No Numbness, No Paresthesias, No Dizziness, No Headache Psych : positive Anxiety, positive Depression, positive SI no HI Heme/Lymph: No Lymphadenopathy Endocrine : No Polyuria, No Polydipsia All other systems reviewed and are negative Constitutional: Reports fatigue Denies dysphagia Cardiovascular: Denies chest pain, Denies chest pain with activity, Denies lightheadedness and Denies dyspnea Respiratory: Denies chest congestion, Denies cough and Denies dyspnea Gastrointestinal: Denies constipation, Denies dysphagia, Denies loose stools, Denies nausea and Denies vomiting Musculoskeletal: Denies no additional musculoskeletal complaints Psychiatric: Reports depression, Reports hopelessness and Reports anhedonia Endocrine: Reports fatigue Mental Status Exam Mental Status Exam Narrative: Appearance: casually groomed, fair hygiene in NAD Behavior:cooperative psychomotor:no agitation or retardation noted Speech:clear, normal rate/rhythm/volume, spontaneous Thought process:tangential Thought content:no signs of psychosis, more future oriented Mood: better Affect: brighter SI:none HI:none VH/AH:none Delusions: none Insight/judgment:poor x 2. Memory/cog: alert, oriented x 3. Pending MOCA Diagnostics Vital Signs (24Hr): Vital Signs - 24 hr 08/16/21 20:22 08/17/21 06:00 Temperature 97.1 F 97.4 F Pulse Rate 72 61 Blood Pressure 134/60 121/61 Pulse Oximetry 92 100 Body Mass Index 26.6 Labs Results: 08/03/21 18:17 08/11/21 11:31 Labs: Laboratory Results - last 48 hr 08/16/21 14:02 D-Dimer < 200 Medications Medications Current Medications Acetaminophen (Acetaminophen 325 Mg Tablet) 650 mg PO Q6H PRN PRN Reason: Headache/Pain Mild Scale (1-3) Last Admin: 08/08/21 10:58 Dose: 650 mg Documented by: Al Hydroxide/Mg Hydroxide (Magnesium Hydrox/Alum Hydrox 30 Ml Oral.Susp) 30 ml PO Q6H PRN PRN Reason: Heartburn/Nausea Albuterol Sulfate (Albuterol Sulfate 90 Mcg 8 Gm Inhaler) 2 puff INHALE Q4H PRN PRN Reason: Wheezing Last Admin: 08/06/21 22:02 Dose: 2 puff Documented by: Amlodipine Besylate (Amlodipine Besylate 10 Mg Tablet) 10 mg PO DAILY [facility]; Protocol Last Admin: 08/17/21 08:55 Dose: 10 mg Documented by: Apixaban (Apixaban 5 Mg Tablet) 5 mg PO BID [facility] Last Admin: 08/17/21 08:55 Dose: 5 mg Documented by: Atorvastatin Calcium (Atorvastatin Calcium 20 Mg Tablet) 20 mg PO BEDTIME [facility] Last Admin: 08/16/21 22:16 Dose: 20 mg Documented by: Benztropine Mesylate (Benztropine Mesylate 1 Mg Tablet) 1 mg PO BID [facility] Last Admin: 08/17/21 08:54 Dose: 1 mg Documented by: Bupropion HCl (Bupropion Hcl Xl 300 Mg Tab.Er.24h) 300 mg PO DAILY [facility] Last Admin: 08/17/21 08:54 Dose: 300 mg Documented by: Haloperidol (Haloperidol 5 Mg Tablet) 5 mg PO BEDTIME [facility] Last Admin: 08/16/21 22:16 Dose: 5 mg Documented by: Hydroxyzine HCl (Hydroxyzine Hcl 25 Mg Tablet) 25 mg PO Q6H PRN PRN Reason: Anxiety Last Admin: 08/16/21 09:41 Dose: 25 mg Documented by: Lisinopril (Lisinopril 5 Mg Tablet) 5 mg PO DAILY [facility]; Protocol Last Admin: 08/17/21 08:55 Dose: 5 mg Documented by: Loratadine (Loratadine 10 Mg Tablet) 10 mg PO DAILY [facility] Last Admin: 08/17/21 08:54 Dose: 10 mg Documented by: Magnesium Hydroxide (Milk Of Magnesia 30 Ml Oral.Susp) 30 ml PO DAILY PRN PRN Reason: Constipation Last Admin: 08/13/21 11:57 Dose: 30 ml Documented by: Melatonin (Melatonin 3 Mg Tablet) 3 mg PO BEDTIME PRN PRN Reason: Insomnia Last Admin: 08/16/21 22:16 Dose: 3 mg Documented by: Mirtazapine (Mirtazapine 15 Mg Tablet) 30 mg PO BEDTIME [facility] Last Admin: 08/16/21 22:17 Dose: 30 mg Documented by: Multivitamins/Vitamin C (Multivitamin Tablet) 1 tab PO DAILY [facility] Last Admin: 08/17/21 08:55 Dose: 1 tab Documented by: Olanzapine (Olanzapine 10 Mg Tablet) 20 mg PO BEDTIME [facility] Last Admin: 08/16/21 22:16 Dose: 20 mg Documented by: Senna (Sennosides 8.6 Mg Tablet) 8.6 mg PO DAILY PRN PRN Reason: Constipation Simethicone (Simethicone 80 Mg Tab.Chew) 80 mg PO QID PRN PRN Reason: gas Topiramate (Topiramate 25 Mg Tablet) 25 mg PO BEDTIME [facility] Last Admin: 08/16/21 22:16 Dose: 25 mg Documented by: Vitamin D (Cholecalciferol (Vitamin D3) 25 Mcg Tablet) 50 mcg PO DAILY [facility] Last Admin: 08/17/21 08:54 Dose: 50 mcg Documented by: Allergies Allergies Allergy/AdvReac Type Severity Reaction Status Date / Time hydrochlorothiazide Allergy Unknown UNKNOWN Verified 08/04/21 06:39 [HYDROCHLOROTHIAZIDE] risperidone [From RISPERDAL] Allergy Unknown hives Verified 08/04/21 06:39 trazodone [TRAZODONE] AdvReac Unknown FEELS VERY Verified 08/04/21 06:39 SLEEPY ENVIRONMENTAL Allergy Unknown ITCHY EYES Uncoded 08/17/20 17:36 Assessment & Plan Assessment & Plan (1) Bipolar II disorder major depressive with melancholic features: Status: Acute Code(s): F31.81 - Bipolar II disorder (2) Cocaine use disorder, moderate, dependence: Status: Acute Code(s): F14.20 - Cocaine dependence, uncomplicated Assessment and Plan: Ms. Eagle is a 66 year-old woman with multiple inpatient psychiatric admission, hx of Bipolar Disorder and cocaine use, possibly as well PD. She was brought to [facility] [place] [place] ED by daughter after she was assessed in the community by [facility] crisis due to pt reporting increase depression, anhedonia, suicidal ideation with plan to starve herself to , which pt continues to report despite eating 100% of meals and adequately drinking fluid. Her utox was positive for cocaine. Her CMP notable for hyponatremia (133 on 08/03; 130 /; 136 / ), pt on trileptal which will be hold and pt fluid restriction to 1800cc. PLAN 1. Admit to [facility] 2. Trileptal stopped, Sodium karlo to 142. DCed fluid restriction. 3. Topamax 25mg po qhs for mood/cocaine cravings. 4. Continue Olanzapine, low dose haldol added for AH- if effective may consider monotherapy with haldol 5. Aftercare planning. Greater than 50% of the session was spent on counseling and/or coordination of care Reason for contiued inpatient stay Substantial Risk for: rapid decompensation
[2021-08-17 21:09] VITALS: BP 140/72; PULSE 67; TEMP 36.3; O2SAT 100
[2021-08-17] MEDS: HaloperidoL 5 MG TABLET PO (22:12)
[2021-08-17] MEDS: OLANZapine 10 MG TABLET 20 MG PO (22:12)
[2021-08-17] MEDS: Atorvastatin Calcium 20 MG TABLET PO (22:12)
[2021-08-17] MEDS: Topiramate 25 MG TABLET PO (22:12)
[2021-08-17] MEDS: Melatonin 3 MG TABLET PO (22:12)
[2021-08-17] MEDS: Mirtazapine 15 MG TABLET 30 MG PO (22:12)
[2021-08-18 08:20] VITALS: BP 124/58; PULSE 70; RESP 18; TEMP 36.1; O2SAT 99
--- NOTE | 2021-08-18 08:23 | P.PNPSI_ITS ---
Subjective Subjective Date of Service: 08/19/21 Reason For Visit: Depression, SI Interim History: Improving mood. Bright affect. Joked about the Lord not giving her a . Stable. No SI. Eating WNL. Medication Compliance: Yes Side effects from medications: No Review of Systems Review of Systems Constitutional : No Fever, No Chills ENT/Mouth : No Ear Pain, No Nasal Congestion, No sore throat Eyes: No Eye Pain, No Swelling, No Redness Cardiovascular : No Chest Pain, No SOB Respiratory : No Cough, No Sputum, No Dyspnea Gastrointestinal : No Nausea, No Vomiting, No Diarrhea, No Hematochezia, No Melena Genitourinary : No Dysuria, No Urinary Frequency, No Hematuria Musculoskeletal : No Myalgias Skin : No Skin Lesions, No rash Neuro : No Weakness, No Numbness, No Paresthesias, No Dizziness, No Headache Psych : positive Anxiety, positive Depression, positive SI no HI Heme/Lymph: No Lymphadenopathy Endocrine : No Polyuria, No Polydipsia All other systems reviewed and are negative Constitutional: Reports fatigue Denies dysphagia Cardiovascular: Denies chest pain, Denies chest pain with activity, Denies lightheadedness and Denies dyspnea Respiratory: Denies chest congestion, Denies cough and Denies dyspnea Gastrointestinal: Denies constipation, Denies dysphagia, Denies loose stools, Denies nausea and Denies vomiting Musculoskeletal: Denies no additional musculoskeletal complaints Psychiatric: Reports depression, Reports hopelessness and Reports anhedonia Endocrine: Reports fatigue Mental Status Exam Mental Status Exam Narrative: Appearance: casually groomed, fair hygiene in NAD Behavior:cooperative psychomotor:no agitation or retardation noted Speech:clear, normal rate/rhythm/volume, spontaneous Thought process:tangential Thought content:no signs of psychosis, more future oriented Mood: better Affect: brighter SI:none HI:none VH/AH:none Delusions: none Insight/judgment:poor x 2. Memory/cog: alert, oriented x 3. Pending MOCA Diagnostics Vital Signs (24Hr): Vital Signs - 24 hr 08/17/21 21:09 08/18/21 08:20 Temperature 97.3 F 97.0 F Pulse Rate 67 70 Respiratory Rate 18 Blood Pressure 140/72 H 124/58 L Pulse Oximetry 100 99 Body Mass Index 26.6 Labs Results: 08/03/21 18:17 08/11/21 11:31 Labs: Laboratory Results - last 48 hr 08/16/21 14:02 D-Dimer < 200 Medications Medications Current Medications Acetaminophen (Acetaminophen 325 Mg Tablet) 650 mg PO Q6H PRN PRN Reason: Headache/Pain Mild Scale (1-3) Last Admin: 08/08/21 10:58 Dose: 650 mg Documented by: Al Hydroxide/Mg Hydroxide (Magnesium Hydrox/Alum Hydrox 30 Ml Oral.Susp) 30 ml PO Q6H PRN PRN Reason: Heartburn/Nausea Albuterol Sulfate (Albuterol Sulfate 90 Mcg 8 Gm Inhaler) 2 puff INHALE Q4H PRN PRN Reason: Wheezing Last Admin: 08/06/21 22:02 Dose: 2 puff Documented by: Amlodipine Besylate (Amlodipine Besylate 10 Mg Tablet) 10 mg PO DAILY [facility]; Protocol Last Admin: 08/17/21 08:55 Dose: 10 mg Documented by: Apixaban (Apixaban 5 Mg Tablet) 5 mg PO BID [facility] Last Admin: 08/17/21 22:12 Dose: 5 mg Documented by: Atorvastatin Calcium (Atorvastatin Calcium 20 Mg Tablet) 20 mg PO BEDTIME [facility] Last Admin: 08/17/21 22:12 Dose: 20 mg Documented by: Benztropine Mesylate (Benztropine Mesylate 1 Mg Tablet) 1 mg PO BID [facility] Last Admin: 08/17/21 22:12 Dose: 1 mg Documented by: Bupropion HCl (Bupropion Hcl Xl 300 Mg Tab.Er.24h) 300 mg PO DAILY [facility] Last Admin: 08/17/21 08:54 Dose: 300 mg Documented by: Haloperidol (Haloperidol 5 Mg Tablet) 5 mg PO BEDTIME [facility] Last Admin: 08/17/21 22:12 Dose: 5 mg Documented by: Hydroxyzine HCl (Hydroxyzine Hcl 25 Mg Tablet) 25 mg PO Q6H PRN PRN Reason: Anxiety Last Admin: 08/16/21 09:41 Dose: 25 mg Documented by: Lisinopril (Lisinopril 5 Mg Tablet) 5 mg PO DAILY [facility]; Protocol Last Admin: 08/17/21 08:55 Dose: 5 mg Documented by: Loratadine (Loratadine 10 Mg Tablet) 10 mg PO DAILY [facility] Last Admin: 08/17/21 08:54 Dose: 10 mg Documented by: Magnesium Hydroxide (Milk Of Magnesia 30 Ml Oral.Susp) 30 ml PO DAILY PRN PRN Reason: Constipation Last Admin: 08/13/21 11:57 Dose: 30 ml Documented by: Melatonin (Melatonin 3 Mg Tablet) 3 mg PO BEDTIME PRN PRN Reason: Insomnia Last Admin: 08/17/21 22:12 Dose: 3 mg Documented by: Mirtazapine (Mirtazapine 15 Mg Tablet) 30 mg PO BEDTIME [facility] Last Admin: 08/17/21 22:12 Dose: 30 mg Documented by: Multivitamins/Vitamin C (Multivitamin Tablet) 1 tab PO DAILY [facility] Last Admin: 08/17/21 08:55 Dose: 1 tab Documented by: Olanzapine (Olanzapine 10 Mg Tablet) 20 mg PO BEDTIME [facility] Last Admin: 08/17/21 22:12 Dose: 20 mg Documented by: Senna (Sennosides 8.6 Mg Tablet) 8.6 mg PO DAILY PRN PRN Reason: Constipation Simethicone (Simethicone 80 Mg Tab.Chew) 80 mg PO QID PRN PRN Reason: gas Topiramate (Topiramate 25 Mg Tablet) 25 mg PO BEDTIME [facility] Last Admin: 08/17/21 22:12 Dose: 25 mg Documented by: Vitamin D (Cholecalciferol (Vitamin D3) 25 Mcg Tablet) 50 mcg PO DAILY [facility] Last Admin: 08/17/21 08:54 Dose: 50 mcg Documented by: Allergies Allergies Allergy/AdvReac Type Severity Reaction Status Date / Time hydrochlorothiazide Allergy Unknown UNKNOWN Verified 08/04/21 06:39 [HYDROCHLOROTHIAZIDE] risperidone [From RISPERDAL] Allergy Unknown hives Verified 08/04/21 06:39 trazodone [TRAZODONE] AdvReac Unknown FEELS VERY Verified 08/04/21 06:39 SLEEPY ENVIRONMENTAL Allergy Unknown ITCHY EYES Uncoded 08/17/20 17:36 Assessment & Plan Assessment & Plan (1) Bipolar II disorder major depressive with melancholic features: Status: Acute Code(s): F31.81 - Bipolar II disorder (2) Cocaine use disorder, moderate, dependence: Status: Acute Code(s): F14.20 - Cocaine dependence, uncomplicated Assessment and Plan: Ms. Eagle is a 66 year-old woman with multiple inpatient psychiatric admission, hx of Bipolar Disorder and cocaine use, possibly as well PD. She was brought to [facility] [place] [facility] by daughter after she was assessed in the community by [facility] crisis due to pt reporting increase depression, anhedonia, suicidal ideation with plan to starve herself to , which pt continues to report despite eating 100% of meals and adequately drinking fluid. Her utox was positive for cocaine. Her CMP notable for hyponatremia (133 on 08/03; 130 08/05; 136 08/06 ), pt on trileptal which will be hold and pt fluid restriction to 1800cc. PLAN Ct Rx plan Greater than 50% of the session was spent on counseling and/or coordination of care Reason for contiued inpatient stay Substantial Risk for: harm to self and inability to function
[2021-08-18 08:24] VITALS: BP 124/58; PULSE 70
[2021-08-18] MEDS: Multivitamin TABLET 1 TAB PO (08:24)
[2021-08-18] MEDS: Loratadine 10 MG TABLET PO (08:24)
[2021-08-18] MEDS: buPROPion HCl XL 300 MG TAB.ER.24H PO (08:24)
[2021-08-18] MEDS: Apixaban 5 MG TABLET PO ×2 (08:24→22:07)
[2021-08-18] MEDS: Cholecalciferol (Vitamin D3) 25 MCG TABLET 50 MCG PO (08:24)
[2021-08-18] MEDS: amLODIPine Besylate 10 MG TABLET PO (08:24)
[2021-08-18] MEDS: Benztropine Mesylate 1 MG TABLET PO ×2 (08:24→22:07)
[2021-08-18 08:25] VITALS: BP 124/58; PULSE 70
[2021-08-18] MEDS: lisinopriL 5 MG TABLET PO (08:25)
[2021-08-18 20:58] VITALS: BP 127/64; PULSE 70; TEMP 36.3; O2SAT 100
[2021-08-18] MEDS: OLANZapine 10 MG TABLET 20 MG PO (22:07)
[2021-08-18] MEDS: Mirtazapine 15 MG TABLET 30 MG PO (22:07)
[2021-08-18] MEDS: Atorvastatin Calcium 20 MG TABLET PO (22:07)
[2021-08-18] MEDS: Melatonin 3 MG TABLET PO (22:07)
[2021-08-18] MEDS: Topiramate 25 MG TABLET PO (22:08)
[2021-08-18] MEDS: HaloperidoL 5 MG TABLET PO (22:08)
--- NOTE | 2021-08-19 08:02 | HO.PSYCHPN ---
Subjective Subjective Date of Service: 08/19/21 Reason For Visit: Depression, SI Interim History: Feeling depressed and anxious today. No reason. Im lying in bed today Medication Compliance: Yes Side effects from medications: No Review of Systems Medical Review of Systems: unchanged Review of Systems Review of Systems Constitutional : No Fever, No Chills ENT/Mouth : No Ear Pain, No Nasal Congestion, No sore throat Eyes: No Eye Pain, No Swelling, No Redness Cardiovascular : No Chest Pain, No SOB Respiratory : No Cough, No Sputum, No Dyspnea Gastrointestinal : No Nausea, No Vomiting, No Diarrhea, No Hematochezia, No Melena Genitourinary : No Dysuria, No Urinary Frequency, No Hematuria Musculoskeletal : No Myalgias Skin : No Skin Lesions, No rash Neuro : No Weakness, No Numbness, No Paresthesias, No Dizziness, No Headache Psych : positive Anxiety, positive Depression, positive SI no HI Heme/Lymph: No Lymphadenopathy Endocrine : No Polyuria, No Polydipsia All other systems reviewed and are negative Constitutional: Reports fatigue Denies dysphagia Cardiovascular: Denies chest pain, Denies chest pain with activity, Denies lightheadedness and Denies dyspnea Respiratory: Denies chest congestion, Denies cough and Denies dyspnea Gastrointestinal: Denies constipation, Denies dysphagia, Denies loose stools, Denies nausea and Denies vomiting Musculoskeletal: Denies no additional musculoskeletal complaints Psychiatric: Reports depression, Reports hopelessness and Reports anhedonia Endocrine: Reports fatigue Mental Status Exam Mental Status Exam Narrative: Appearance: casually groomed, fair hygiene in NAD Behavior:cooperative psychomotor:no agitation or retardation noted Speech:clear, normal rate/rhythm/volume, spontaneous Thought process:tangential Thought content:no signs of psychosis, more future oriented Mood: better Affect: brighter SI:none HI:none VH/AH:none Delusions: none Insight/judgment:poor x 2. Memory/cog: alert, oriented x 3. Pending MOCA Diagnostics Vital Signs (24Hr): Vital Signs - 24 hr 08/18/21 08:20 08/18/21 08:24 08/18/21 08:25 Temperature 97.0 F Pulse Rate 70 70 70 Respiratory Rate 18 Blood Pressure 124/58 L 124/58 L 124/58 L Pulse Oximetry 99 08/18/21 20:58 Temperature 97.4 F Pulse Rate 70 Respiratory Rate Blood Pressure 127/64 Pulse Oximetry 100 Body Mass Index 26.6 Labs Results: 08/03/21 18:17 08/11/21 11:31 Medications Medications Current Medications Acetaminophen (Acetaminophen 325 Mg Tablet) 650 mg PO Q6H PRN PRN Reason: Headache/Pain Mild Scale (1-3) Last Admin: 08/08/21 10:58 Dose: 650 mg Documented by: Al Hydroxide/Mg Hydroxide (Magnesium Hydrox/Alum Hydrox 30 Ml Oral.Susp) 30 ml PO Q6H PRN PRN Reason: Heartburn/Nausea Albuterol Sulfate (Albuterol Sulfate 90 Mcg 8 Gm Inhaler) 2 puff INHALE Q4H PRN PRN Reason: Wheezing Last Admin: 08/06/21 22:02 Dose: 2 puff Documented by: Amlodipine Besylate (Amlodipine Besylate 10 Mg Tablet) 10 mg PO DAILY [facility]; Protocol Last Admin: 08/18/21 08:24 Dose: 10 mg Documented by: Apixaban (Apixaban 5 Mg Tablet) 5 mg PO BID [facility] Last Admin: 08/18/21 22:07 Dose: 5 mg Documented by: Atorvastatin Calcium (Atorvastatin Calcium 20 Mg Tablet) 20 mg PO BEDTIME [facility] Last Admin: 08/18/21 22:07 Dose: 20 mg Documented by: Benztropine Mesylate (Benztropine Mesylate 1 Mg Tablet) 1 mg PO BID [facility] Last Admin: 08/18/21 22:07 Dose: 1 mg Documented by: Bupropion HCl (Bupropion Hcl Xl 300 Mg Tab.Er.24h) 300 mg PO DAILY [facility] Last Admin: 08/18/21 08:24 Dose: 300 mg Documented by: Haloperidol (Haloperidol 5 Mg Tablet) 5 mg PO BEDTIME [facility] Last Admin: 08/18/21 22:08 Dose: 5 mg Documented by: Hydroxyzine HCl (Hydroxyzine Hcl 25 Mg Tablet) 25 mg PO Q6H PRN PRN Reason: Anxiety Last Admin: 08/16/21 09:41 Dose: 25 mg Documented by: Lisinopril (Lisinopril 5 Mg Tablet) 5 mg PO DAILY [facility]; Protocol Last Admin: 08/18/21 08:25 Dose: 5 mg Documented by: Loratadine (Loratadine 10 Mg Tablet) 10 mg PO DAILY [facility] Last Admin: 08/18/21 08:24 Dose: 10 mg Documented by: Magnesium Hydroxide (Milk Of Magnesia 30 Ml Oral.Susp) 30 ml PO DAILY PRN PRN Reason: Constipation Last Admin: 08/13/21 11:57 Dose: 30 ml Documented by: Melatonin (Melatonin 3 Mg Tablet) 3 mg PO BEDTIME PRN PRN Reason: Insomnia Last Admin: 08/18/21 22:07 Dose: 3 mg Documented by: Mirtazapine (Mirtazapine 15 Mg Tablet) 30 mg PO BEDTIME [facility] Last Admin: 08/18/21 22:07 Dose: 30 mg Documented by: Multivitamins/Vitamin C (Multivitamin Tablet) 1 tab PO DAILY [facility] Last Admin: 08/18/21 08:24 Dose: 1 tab Documented by: Olanzapine (Olanzapine 10 Mg Tablet) 20 mg PO BEDTIME [facility] Last Admin: 08/18/21 22:07 Dose: 20 mg Documented by: Senna (Sennosides 8.6 Mg Tablet) 8.6 mg PO DAILY PRN PRN Reason: Constipation Simethicone (Simethicone 80 Mg Tab.Chew) 80 mg PO QID PRN PRN Reason: gas Topiramate (Topiramate 25 Mg Tablet) 25 mg PO BEDTIME [facility] Last Admin: 08/18/21 22:08 Dose: 25 mg Documented by: Vitamin D (Cholecalciferol (Vitamin D3) 25 Mcg Tablet) 50 mcg PO DAILY [facility] Last Admin: 08/18/21 08:24 Dose: 50 mcg Documented by: Allergies Allergies Allergy/AdvReac Type Severity Reaction Status Date / Time hydrochlorothiazide Allergy Unknown UNKNOWN Verified 08/04/21 06:39 [HYDROCHLOROTHIAZIDE] risperidone [From RISPERDAL] Allergy Unknown hives Verified 08/04/21 06:39 trazodone [TRAZODONE] AdvReac Unknown FEELS VERY Verified 08/04/21 06:39 SLEEPY ENVIRONMENTAL Allergy Unknown ITCHY EYES Uncoded 08/17/20 17:36 Assessment & Plan Assessment & Plan (1) Bipolar II disorder major depressive with melancholic features: Status: Acute Code(s): F31.81 - Bipolar II disorder (2) Cocaine use disorder, moderate, dependence: Status: Acute Code(s): F14.20 - Cocaine dependence, uncomplicated Assessment and Plan: Ms. Eagle is a 66 year-old woman with multiple inpatient psychiatric admission, hx of Bipolar Disorder and cocaine use, possibly as well PD. She was brought to [facility] [place] [facility] by daughter after she was assessed in the community by [facility] crisis due to pt reporting increase depression, anhedonia, suicidal ideation with plan to starve herself to , which pt continues to report despite eating 100% of meals and adequately drinking fluid. Her utox was positive for cocaine. Her CMP notable for hyponatremia (133 on 08/03; 130 08/05; 136 08/06 ), pt on trileptal which will be hold and pt fluid restriction to 1800cc. PLAN Ct Rx plan Greater than 50% of the session was spent on counseling and/or coordination of care Reason for contiued inpatient stay Substantial Risk for: inability to function
[2021-08-19 09:55] VITALS: BP 141/78; PULSE 83; RESP 18; TEMP 36.2; O2SAT 99
[2021-08-19] MEDS: lisinopriL 5 MG TABLET PO (09:55)
[2021-08-19] MEDS: amLODIPine Besylate 10 MG TABLET PO (09:55)
[2021-08-19] MEDS: buPROPion HCl XL 300 MG TAB.ER.24H PO (09:58)
[2021-08-19] MEDS: Loratadine 10 MG TABLET PO (09:58)
[2021-08-19] MEDS: Benztropine Mesylate 1 MG TABLET PO ×2 (09:59→22:05)
[2021-08-19] MEDS: Apixaban 5 MG TABLET PO ×2 (09:59→22:05)
[2021-08-19] MEDS: Cholecalciferol (Vitamin D3) 25 MCG TABLET 50 MCG PO (09:59)
[2021-08-19] MEDS: Multivitamin TABLET 1 TAB PO (09:59)
[2021-08-19] MEDS: Acetaminophen 325 MG TABLET 650 MG PO (10:00)
[2021-08-19] MEDS: Magnesium Hydrox/Alum Hydrox 30 ML ORAL.SUSP PO (16:43)
[2021-08-19 20:15] VITALS: BP 124/71; PULSE 75; RESP 18; TEMP 36.3; O2SAT 95
[2021-08-19] MEDS: Mirtazapine 15 MG TABLET 30 MG PO (22:05)
[2021-08-19] MEDS: Atorvastatin Calcium 20 MG TABLET PO (22:05)
[2021-08-19] MEDS: Topiramate 25 MG TABLET PO (22:05)
[2021-08-19] MEDS: Melatonin 3 MG TABLET PO (22:06)
[2021-08-19] MEDS: HaloperidoL 5 MG TABLET PO (22:06)
[2021-08-19] MEDS: OLANZapine 10 MG TABLET 20 MG PO (22:06)
[2021-08-20 06:00] VITALS: BP 138/72; PULSE 62; RESP 16; TEMP 36.2; O2SAT 100
[2021-08-20] MEDS: Loratadine 10 MG TABLET PO (08:41)
[2021-08-20] MEDS: Cholecalciferol (Vitamin D3) 25 MCG TABLET 50 MCG PO (08:41)
[2021-08-20] MEDS: buPROPion HCl XL 300 MG TAB.ER.24H PO (08:42)
[2021-08-20] MEDS: amLODIPine Besylate 10 MG TABLET PO (08:42)
[2021-08-20] MEDS: Apixaban 5 MG TABLET PO (08:42)
[2021-08-20] MEDS: Multivitamin TABLET 1 TAB PO (08:42)
[2021-08-20] MEDS: lisinopriL 5 MG TABLET PO (08:42)
[2021-08-20] MEDS: Benztropine Mesylate 1 MG TABLET PO (08:42)
--- NOTE | 2021-08-20 09:34 | PM.PSYDC ---
DS: Providers Provider Date of Service: 08/20/21 Date of admission: 08/03/21 22:08 Primary care physician: Unknown Physician DS: Diagnosis Discharge Diagnosis (1) Bipolar II disorder major depressive with melancholic features: Status: Acute (2) Cocaine use disorder, moderate, dependence: Status: Acute DS: Medications Discharge Medications Home Medications: Home Medications Medication Instructions Recorded Confirmed albuterol sulfate 90 mcg/actuation 2 puff PO Q4H PRN 08/03/21 08/03/21 aerosol inhaler amlodipine 10 mg tablet 1 tab PO QAM 08/03/21 08/03/21 apixaban 5 mg tablet (Eliquis) 1 tab PO BID 08/03/21 08/03/21 atorvastatin 20 mg tablet 1 tab PO BEDTIME 08/03/21 08/03/21 benztropine 1 mg tablet 1 tab PO BID 08/03/21 08/03/21 cholecalciferol (vitamin D3) 50 1 cap PO QAM 08/03/21 08/03/21 mcg (2,000 unit) capsule lisinopril 5 mg tablet 1 tab PO QAM 08/03/21 08/03/21 loratadine 10 mg tablet (Claritin) 10 mg PO DAILY 08/03/21 08/03/21 melatonin 3 mg tablet 1 tab PO BEDTIME PRN 08/03/21 08/03/21 sennosides 8.6 mg tablet (senna) 8.6 mg PO DAILY PRN 08/03/21 08/03/21 simethicone 125 mg chewable tablet 1 tab PO QID PRN 08/03/21 08/03/21 thiamine HCl (vitamin B1) 100 mg 1 tab PO QAM 08/03/21 08/03/21 tablet Previous Rx's Medication Instructions Recorded bupropion HCl 300 mg 24 hr tablet, 300 mg PO DAILY #30 tab 08/20/21 extended release mirtazapine 15 mg tablet 30 mg PO BEDTIME #60 tab 08/20/21 multivitamin (Daily-Robert) 1 tab PO DAILY #30 tab 08/20/21 olanzapine 20 mg tablet (Zyprexa) 20 mg PO BEDTIME #30 tab 08/20/21 topiramate 25 mg tablet 25 mg PO BEDTIME #30 tab 08/20/21 Mental Status Exam Mental Status Exam Narrative: Appearance: casually groomed, fair hygiene in NAD Behavior:cooperative psychomotor:no agitation or retardation noted Speech:clear, normal rate/rhythm/volume, spontaneous Thought process:tangential Thought content:no signs of psychosis, more future oriented Mood: better Affect: brighter SI:none HI:none VH/AH:none Delusions: none Insight/judgment:fair x 2. Memory/cog: alert, oriented x 3. Pending MOCA-pt does have upcoming appointment with neurology Data Data Completed and Pending Completed studies during hospitalization [Text1]: 08/16/21 14:02 D-Dimer < 200 08/04/21 00:00 Urine clean catch - Urine ray top Urine Culture - Final DS: Summary Hospital Course Hospital Course: Narrative: Ms. Eagle is a 66 year-old woman with hx of Bipolar 2 Disorder, cocaine use disorder who was assessed by [facility] crisis due to increased depression, isolating her self, suicidal ideation with plan to starve herself to and engaging in self-destructing behaviors such as using cocaine. In the ED, her utox was positive for cocaine. Per crisis N assessment, daughter reported that pt appears increasingly more confused, unable to complete ADLs, clean her house and questioned pt's ability to take medications as prescribed due to cognitive impairments. On the unit, Ms. Eagle is seen eating all her meals and eating a cookie while being interviewed by this investment underwriter. She reports feeling increasingly depressed, with sense of worthlessness and continues to endorse suicidal ideation with plan to starve herself to . Per pt she has not eaten nor had much fluids in months, despite bringing to her attention that she just completed 100% of her meals and is eating a cookie. Pt endorses anhedonia, low energy, depressed mood, inability to care for self. She reports fair sleep. She denies visual or auditory hallucinations. She denies homicidal ideation. ? Past Psychiatric History: Inpatient: 04/23/21 [facility] (suicidal ideation with plan to starve to ); 03/12/21 [facility]; 06/09/20 [facility]; 08/11/19 [facility]; 02/09/19 [facility]; 12/10/18 [facility]; 06/12/18 [facility], 05/13/17 [facility]; 7 other inpt admission since 2012.? ? OP: N Dr. Bryant ? Past medication trials: lithium, risperidone, trileptal, olanzapine, remeron Medical Evaluation Reviewed: Yes CMP does show hyponatremia (133 (9/3), 130 (9/5)) will hold trileptal, recheck/monitor Na, fluid restriction to 1800cc. HOSPITAL COURSE On the unit, Mrs. Eagle was admitted on CV and placed on 15 minutes checks for safety. Mrs. Eagle endorsed depressed mood, anhedonia, feeling of guilt and shame related to cocaine use and poor appetite. We discussed risks, benefits and alternative treatment options. Pt was noted to have low sodium secondary to trileptal. Pt has been on other mood stabilizer such as lithium and depakote but pt reports side effects with them. She reported Wellbutrin had been beneficial for mood. She was continued on this medications. She reported difficulty sleeping, note that pt does have hx of FERNANDA pending more current sleep study. .She was kept on Olanzapine for AH- most likely related to cocaine use. She was started on topamax for cocaine cravings- low dose. Her affect gradually brighten and she was increasingly more visible in the unit. She reported decreased depressed mood, less anxious mood. She declined referrals for substance use as she reported it was sporadic use. She did agree to start day program to provide more structure in addition to OP psych tx with shelter providers. She denied SI/HI. She reported decrease AH. Collateral information gathered from OP psychiatrist, Dr. Olguin who agreed with medication chnages. Collateral information gathered from daugther who denied any safety concern at time of discharged and agreed pt appear in much improved condition. There were no incidences of disruptive behaviors nor use of restrains. Status at Discharge Cognitive/behavioral status at discharge: Pt with brighter affect. Increasingly more future oriented. No SI/HI. No signs of aggression towards self or others. Functional status at discharge: independent ambulation Overall status at discharge: patient is progressing back to baseline Time Spent with Patient Time attestation: Total time spent providing and/or coordinating discharge services: Discharge Plan Discharge Patient Disposition: Home, Self-Care Discharge Diagnosis: Bipolar type 2 Disorder Cocaine Use disorder Referrals: Dr. Tatyana Quiroga (Psychiatry) [Other] - 08/31/21 8:30 am (In Office Appointment) Sloane Castorena (Therapy) [Other] - 08/27/21 10:00 am (Telehealth Appointment) Physician,Unknown J [Primary Care Provider] - 1 Week Discharge Medications: New multivitamin [Daily-Robert] Tablet 1 tab PO DAILY Qty: 30 RF: 0 topiramate 25 mg Tablet 25 mg PO BEDTIME Qty: 30 RF: 0 mirtazapine 15 mg Tablet 30 mg PO BEDTIME Qty: 60 RF: 0 bupropion HCl 300 mg Tablet Extended Release 24 Hr 300 mg PO DAILY Qty: 30 RF: 0 Continued amlodipine 10 mg tablet 1 tab PO QAM RF: 0 atorvastatin 20 mg tablet 1 tab PO BEDTIME RF: 0 lisinopril 5 mg tablet 1 tab PO QAM RF: 0 cholecalciferol (vitamin D3) 50 mcg (2,000 unit) capsule 1 cap PO QAM RF: 0 sennosides [senna] 8.6 mg Tablet 8.6 mg PO DAILY PRN (Reason: Constipation) RF: 0 thiamine HCl (vitamin B1) 100 mg tablet 1 tab PO QAM RF: 0 melatonin 3 mg tablet 1 tab PO BEDTIME PRN (Reason: Insomnia) RF: 0 benztropine 1 mg tablet 1 tab PO BID RF: 0 simethicone 125 mg tablet,chewable 1 tab PO QID PRN (Reason: gas) RF: 0 albuterol sulfate 90 mcg/actuation HFA aerosol inhaler 2 puff PO Q4H PRN (Reason: Wheezing) RF: 0 loratadine [Claritin] 10 mg Tablet 10 mg PO DAILY RF: 0 Eliquis 5 mg tablet 1 tab PO BID RF: 0 olanzapine [Zyprexa] 20 mg Tablet 20 mg PO BEDTIME Qty: 30 RF: 0 Discontinued M.V.I. Adult 1 tab PO DAILY RF: 0 oxcarbazepine 300 mg tablet 300 mg PO DAILY RF: 0 oxcarbazepine 300 mg tablet 600 mg PO BEDTIME RF: 0 mirtazapine 15 mg tablet 2 tab PO BEDTIME RF: 0 bupropion HCl 300 mg tablet extended release 24 hr 1 tab PO QAM RF: 0 Discharge Orders: Discharge Order (Routine); Ordered 08/20/21 Ordered By: Laurel Gallardo Diet: regular diet Activity on Discharge: As tolerated Stand Alone Forms: Patient Portal Discharge page Care Plan Goals: 1. Maintain mood 2. No SI/HI. Health Concerns: Follow up with PCP Plan of Treatment: 1. Take medications as prescribed. 2. Follow up with appointments 3. Go to nearest ED or call 911 in event of emergency. Assessment: Pt with brighter affect, non labile. No SI/HI. Future oriented. Discharge Date/Time: 08/20/21 11:17
== END 2021-08-20 11:17 | disposition home or self-care (01) | DRG 753 ==
LOC: HO.ED 18:42 → HO.PADLT16 22:16
PROVIDERS: Psychiatry & Neurology Psychiatry; Admitting Provider Registered Nurse; Emergency Provider Emergency Medicine; Visit Provider Social Worker
DX: F31.81 Bipolar II disorder (principal); R45.851 Suicidal ideations; F14.20 Cocaine dependence, uncomplicated; Z20.822 Contact with and (suspected) exposure to COVID-19; Z79.01 Long term (current) use of anticoagulants; Z79.899 Other long term (current) drug therapy
CPT/HCPCS: 36415; 80048; 80053; 80061; 80076; 80307; 81001; 82077; 83036; 83930; 83935; 84295; 84300; 84443; 85025; 85379; 87086; 87635; 93005; 99232; 99283; 99285

== ENCOUNTER → 2021-10-05 11:33 | Outpatient (BNV) | payer MEDICAID, MEDICARE, SELFPAY | PROVIDERS: Visit Provider Internal Medicine | DX: I82.409 Acute embolism and thrombosis of unspecified deep veins of unspecified lower extremity (principal) | CPT/HCPCS: 99203; 99214 ==

== ENCOUNTER 2023-01-13 10:01 | Outpatient (REF) | payer MEDICARE, MEDICAID, SELFPAY ==
--- NOTE | ~2023-01-13 | US_ITS ---
EXAMINATION: US RETROPERITONEAL LIMITED (RENAL ONLY) CLINICAL INFORMATION: Chronic kidney disease, stage III. COMPARISON: None TECHNIQUE: Real-time imaging of the kidneys. FINDINGS: RIGHT KIDNEY: 9.5 x 5.4 x 4.9 cm (SAG x AP x TRV). The kidney is normal in size and contour. Renal cortical thickness is normal. No calculi or focal parenchymal lesions. No hydronephrosis. There is increased renal cortical echotexture. LEFT KIDNEY: 9.8 x 5.5 x 5.2 cm (SAG x AP x TRV). The kidney is normal in size and contour. Renal cortical thickness is normal. No calculi or focal parenchymal lesions. No hydronephrosis. There is increased renal cortical echotexture. US/US renal BI IMPRESSION: There is increased bilateral renal cortical echotexture, consistent with medical renal disease.
== END 2023-01-13 10:02 | disposition home or self-care (01) ==
LOC: HO.HMGCX 10:01
PROVIDERS: Visit Provider Internal Medicine Nephrology
DX: N18.30 Chronic kidney disease, stage 3 unspecified (principal)
CPT/HCPCS: 76775

== ENCOUNTER 2024-09-16 11:59 | Outpatient (REF) | payer MEDICARE, MEDICAID, SELFPAY ==
--- NOTE | ~2024-09-16 | XR_ITS ---
EXAMINATION: RIGHT SHOULDER AND LUMBAR SPINE CLINICAL INFORMATION: Right shoulder pain and low back pain without sciatica. COMPARISON: None available. TECHNIQUE: 4 views of the right shoulder, 3 views of the lumbosacral spine FINDINGS: RIGHT SHOULDER: Some degenerative changes are present in the shoulder with some glenoid sclerotic change and some inferior humeral head osteophytes. There is a question of a Hill-Sachs deformity seen in the humeral head. Mild degenerative changes are present at the AC joint. No acute fractures or dislocations. LUMBAR SPINE: Mild to moderate degenerative changes are present throughout the lumbar spine with some relative sparing at l2-l3. Most marked disc space narrowing is l4-l5 and l5-s1. There is grade 1 anterolisthesis of l4 upon l5. A calcified uterine fibroid is present in the anteverted uterus. Vascular calcifications are present. XR/XR shoulder RT min 2V IMPRESSION: Degenerative changes in the right shoulder and lumbar spine as described above. Electronically signed by: Marco Antonio Reid MD 09/16/2024 02:47 PM EDT
--- NOTE | ~2024-09-16 | XR_ITS ---
EXAMINATION: RIGHT SHOULDER AND LUMBAR SPINE CLINICAL INFORMATION: Right shoulder pain and low back pain without sciatica. COMPARISON: None available. TECHNIQUE: 4 views of the right shoulder, 3 views of the lumbosacral spine FINDINGS: RIGHT SHOULDER: Some degenerative changes are present in the shoulder with some glenoid sclerotic change and some inferior humeral head osteophytes. There is a question of a Hill-Sachs deformity seen in the humeral head. Mild degenerative changes are present at the AC joint. No acute fractures or dislocations. LUMBAR SPINE: Mild to moderate degenerative changes are present throughout the lumbar spine with some relative sparing at l2-l3. Most marked disc space narrowing is l4-l5 and l5-s1. There is grade 1 anterolisthesis of l4 upon l5. A calcified uterine fibroid is present in the anteverted uterus. Vascular calcifications are present. XR/XR lumbar spine 2-3V IMPRESSION: Degenerative changes in the right shoulder and lumbar spine as described above. Electronically signed by: Marco Antonio Reid MD 09/16/2024 02:47 PM EDT
== END 2024-09-16 12:00 | disposition home or self-care (01) ==
LOC: HO.HHCX 11:59
PROVIDERS: Visit Provider Internal Medicine
DX: M54.50 Low back pain, unspecified (principal); M25.511 Pain in right shoulder; G89.29 Other chronic pain
CPT/HCPCS: 72100; 73030

== ENCOUNTER 2024-09-16 12:19 | Outpatient (REF) | payer MEDICARE, MEDICAID, SELFPAY ==
[2024-09-16 13:27] LABS: MANUAL DIFF FLAG NO
[2024-09-16 13:39] LABS: Basophils Percent Auto 0.3 % (0-2); Eosinophils Absolute Auto 0.2 X10*3/uL (0.0-0.4); Hematocrit 45.5 % (37.0-47.0); Hemoglobin 14.5 g/dl (12.0-16.0); Imm Gran Abs Auto 0.02 X10*3/uL (0.00-0.03); Imm Gran Pct Auto 0.3 % (0.0-0.4); Lymphocytes Absolute Auto 2.3 X10*3/uL (1.2-4.9); Lymphocytes Percent Auto 30.6 % (20-40); Mean Corpuscular HGB Conc 31.9 g/dl (31.0-35.0); Mean Platelet Volume 9.6 fL (9.4-12.3); Monocytes Absolute Auto 0.3 X10*3/uL (0.1-1.2); Monocytes Percent Auto 3.4 % (2-11); Neutrophils Absolute Auto 4.7 x10*3/uL (2.0-8.3); Neutrophils Percent Auto 63.4 % (45-73); Platelet Count 310 X10*3/uL (160-400); Red Blood Count 4.84 X10*6/uL (4.20-5.50); Red Cell Distribution Width 12.4 % (11.0-16.0); White Blood Count 7.4 X10*3/uL (4.8-10.8)
[2024-09-16 14:07] LABS: Alanine Aminotransferase 30 U/L (0-31); Albumin Level 4.7 g/dL (3.5-5.0); Alkaline Phosphatase 110 U/L (39-117); Anion Gap 13 (12-20); Aspartate Amino Transferase 20 U/L (5-31); Bilirubin Total 0.3 mg/dL (0.0-1.0); Blood Urea Nitrogen 12 mg/dL (9-16); Calcium 10.7 mg/dL (8.4-10.2); Carbon Dioxide 28 mmol/L (22-29); Chloride 105 mmol/L (96-108); Cholesterol 153 mg/dL (<200); Estimated Glomerular Filt Rate 57; Glucose Random 148 mg/dL (60-115); HDL Cholesterol 51 mg/dL (>40); LDL Cholesterol Calculated 77 mg/dL (<100); Potassium 3.7 mmol/L (3.3-5.1); Sodium 142 mmol/L (135-145); Triglycerides 126 mg/dL (<150)
[2024-09-16 14:31] LABS: Folate 10.8 ng/mL (> or = 4.0); Vitamin B12 515 pg/mL (200-900)
[2024-09-20 13:39] LABS: RPR Rapid Plasma Reagin NON-REACTIVE (NON-REACTIVE)
== END 2024-09-16 12:20 | disposition home or self-care (01) ==
LOC: HO.HHCL 12:19
PROVIDERS: Visit Provider Internal Medicine
DX: I10 Essential (primary) hypertension (principal); R68.89 Other general symptoms and signs; Z11.3 Encounter for screening for infections with a predominantly sexual mode of transmission
CPT/HCPCS: 36415; 80053; 80061; 82607; 82746; 84443; 85025; 86592

== ENCOUNTER 2025-09-08 19:23 | Outpatient (REF) | payer MEDICARE, SELFPAY ==
[2025-09-09 03:29] LABS: Bacterial Vaginosis PCR NEGATIVE (Negative); Candida Group PCR NOT DETECTED (Not Detect); Candida glab krusei PCR NOT DETECTED (Not Detect); Trichomonas vaginalis PCR NOT DETECTED (Not Detect)
== END 2025-09-08 19:24 | disposition home or self-care (01) ==
LOC: HO.HHCLNP 19:23
PROVIDERS: Visit Provider Nurse Practitioner Primary Care
DX: Z20.2 Contact with and (suspected) exposure to infections with a predominantly sexual mode of transmission (principal); N89.8 Other specified noninflammatory disorders of vagina
CPT/HCPCS: 81515

== ENCOUNTER 2025-09-22 11:10 | Outpatient (REF) | payer MEDICARE, SELFPAY ==
[2025-09-22 13:46] LABS: Alanine Aminotransferase 34 U/L (0-31); Albumin Level 4.8 g/dL (3.5-5.0); Alkaline Phosphatase 113 U/L (39-117); Anion Gap 12 (12-20); Aspartate Amino Transferase 37 U/L (5-31); Blood Urea Nitrogen 11 mg/dL (9-16); Calcium 10.1 mg/dL (8.4-10.2); Carbon Dioxide 27 mmol/L (22-29); Chloride 105 mmol/L (96-108); Cholesterol 174 mg/dL (<200); Estimated Glomerular Filt Rate 52; HDL Cholesterol 51 mg/dL (>40); Potassium 4.4 mmol/L (3.3-5.1); Sodium 140 mmol/L (135-145); Total Protein 7.7 g/dL (6.5-8.0); Triglycerides 210 mg/dL (<150)
[2025-09-22 13:58] LABS: Microalbum/Creatinine Ratio Ur 22.1 ug/mg cr (<30)
--- OUTSIDE RECORDS SUMMARY | 2025-09-22 14:05 | XMS_ITS | Clinical Summary ---
Author Organization [facility] Address [address] [place] [address] Care Team Providers Care Rn Progressive Care Unit Name Role Phone Unavailable Primary Care Provider Unavailabl e Social History Tobacco Use Types Packs/Day Years Used Date Smoking Tobacco: Never Assessed Sex and Gender Information Value Date Recorded Sex Assigned at Not on file Gender Identity Not on file Sexual Orientation Not on file Plan of Treatment Not on file
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
--- OUTSIDE RECORDS SUMMARY | 2025-09-22 14:05 | XMS_ITS | Encounter Summary ---
Author Organization [employer] Address [address] [facility] [address] [place] [address] Care Team Providers Care Flavorings Compounder Name Role Phone Marcie Simpson MD Primary Care Provide r Encounter Details Date Type Department Care Team ([facility] st Contact Info) Description 08/19/2025 Telephone [facility] [address] [place], [place] [phone] Nasreen Villalta, TenzinD [address] [place] [address] Social History Tobacco Use Types Packs/Day Years [...] your housing situation today? I have cheko [place] 07/09/[address] you li [...] AM EDT documented as of this encounter Plan of Treatment Upcoming Encounters Date Type Department Care Team (Late st Contact Info) Description 09/26/2025 2:30 PM EDT Clinical Support [address] [address] 11/14/2025 11:00 AM EST Office Visit [address] [address] Marcie Simpson MD [address] [place] [phone] documented as of this encounter Goals Goal [...] documented as of this encounter Care Teams Flavorings Compounder Relationship Specialty Start Date End Date Marcie Simpson MD [address] [place] [phone] PCP - General Family Medicine 01/03/21 documented as of this encounter
--- OUTSIDE RECORDS SUMMARY | 2025-09-22 14:05 | XMS_ITS | Encounter Summary ---
Author Organization [employer] Address [address] [facility] [address] [place] [address] Care Team Providers Care Flame Planer Name Role Phone Marcie Simpson MD Primary Care Provide r Encounter Details Date Type Department Care Team ([facility] st Contact Info) Description 08/19/2025 Telephone [facility] [address] [place], [place] [phone] Marcie Simpson MD [address] [place], [place] [phone] Social History Tobacco Use Types Packs/Day Years [...] Description 09/26/2025 2:30 PM EDT Clinical Support [facility] [address] [place] [phone] 11/14/2025 11:00 AM EST Office Visit [address] [address] Marcie Simpson MD [address] [place] [phone] documented as of this encounter Goals Goal [...] documented as of this encounter Care Teams Flame Planer Relationship Specialty Start Date End Date Marcie Simpson MD [address] [place] [phone] PCP - General Family Medicine 01/03/21 documented as of this encounter
--- OUTSIDE RECORDS SUMMARY | 2025-09-22 14:06 | XMS_ITS | Encounter Summary ---
Author Organization [employer] Address [address] [facility] [address] [place] [address] Care Team Providers Care Shingle Bolt Cutter Name Role Phone Marcie Simpson MD Primary Care Provide r Reason for Visit * Reason Onset Date Comments Appointment Request 06/30/2024 Encounter Details Date Type Department Care Team ([facility] st Contact Info) Description 06/30/2024 Telephone [facility] [address] [place], [place] [phone] Marcie Simpson MD [address] [place], [place] [phone] Appointment Request Social History Tobacco Use Types Packs/Day Years Used Date Smoking Tobacco: Never Smokeless Tobacco: Never Alcohol Use Standard Drinks/Week Comments Never 0 (1 standard drink = 0.6 oz pur e alcohol) Depression Answer Date Recorded Patient Health Questionnaire-9 Score 7 04/17/2023 Housing Stability Answer Date Recorded What is your housing situation today? I have cheko [place] 09/18/[address] you li ve. Do you have problems with any of the following? None of the above 09/18/2023 Food Insecurity Answer Date Recorded Within the past 12 months, y ou worried that your food would run out before you got money to buy more: Never True 09/18/2023 Within the past 12 months,th e food you bought just didn't last and you didn't have enough money to get more: Never True Transportation Answer Date Recorded In the past 12 months, has l ack of transportation kept you from medical appts, meetings, work or from getting things needed for daily living? No 09/18/2023 Utilities Answer Date Recorded In the past 12 months, has t he electric, gas, oil or water company threatened to shut off services in your home? No 09/18/2023 Depression Answer Date Recorded Patient Health Questionnaire-2 Score 6 04/17/2023 Comments Unknown Sex and Gender Information Value Date Recorded Sex Assigned at Female 09/30/2022 10:22 AM EDT Legal Sex Female 10:22 AM EDT Gender Identity Female 09/30/2022 10:22 AM EDT Sexual Orientation Straight 09/30/2022 10 :22 AM EDT documented as of this encounter Miscellaneous Notes * Telephone Encounter - Jaron Orlando - 06/30/2024 3:18 PM EDT Tc from patient calling to cancel appt for 07/01 due to lack of transportation commercial lines underwriter did offer appt for August however patient refuses and would like something sooner documented in this encounter Plan of Treatment Upcoming Encounters Date Type Department Care Team (Late st Contact Info) Description 09/26/2025 2:30 PM EDT Clinical Support [facility] [address] [place] [phone] 11/14/2025 11:00 AM EST Office Visit [facility] [address] [place] [phone] Marcie Simpson MD [address] [place] [phone] documented as of this encounter Goals Goal Patient Goal Type Associated Problems Recent Progress Patient-Stated? Author Blood Pressure < 140/90 Blood Pressure 160/90( 025 9:20 AM EDT) No Cristal Anderson, PharmD documented as of this encounter Visit Diagnoses Not on filedocumented in this encounter Additional Health Concerns Assessment Noted Time PHQ-9 Depression Total Score: 7 04/17/20 23 1:33 PM EDT documented as of this encounter Care Teams Shingle Bolt Cutter Relationship Specialty Start Date End Date Marcie Simpson MD [address] [place] [phone] PCP - General Family Medicine 01/03/21 documented as of this encounter
--- OUTSIDE RECORDS SUMMARY | 2025-09-22 14:06 | XMS_ITS | Encounter Summary ---
Author Organization [facility] Address [address] [facility] [address] [place] [address] Care Team Providers Care Fulfillment Representative Name Role Phone Marcie Simpson MD Primary Care Provide r Reason for Visit * Reason Onset Date Comments Hospital Follow-up 12/03/2024 Encounter Details Date Type Department Care Team ([facility] st Contact Info) Description 12/03/2024 Telephone [facility] [address], [place] [phone] Marcie Simpson MD [address] [place], [place] [phone] Hospital Follow-up Social History Tobacco Use Types Packs/Day Years [...] encounter Miscellaneous Notes * Telephone Encounter - Mark Alanis - 12/03/2024 2:49 PM EST Tc from pt requesting a HDF appt. Hospital: [facility] Date of admission: 10/30/2024 Discharge date: 12/07/2023 Diagnosed: Bipolar 1 and Depression *Send message to [place] [facility] * Telephone Encounter - Mark Alanis - 12/03/2024 2:42 PM EST Tc from pt requesting a HDF appt. Hospital: [facility] Date of admission: 10/30/2024 Discharge date: 12/07/2023 Diagnosed: Bipolar 1 and Depression *Send message to [place] [facility] documented in this encounter Plan of Treatment Upcoming Encounters Date Type Department Care Team (Late st Contact Info) Description 09/26/2025 2:30 PM EDT Clinical Support [address] [address] 11/14/2025 11:00 AM EST Office Visit [address] [place] [address] Marcie Simpson MD [address] [place] [address] documented as of this encounter Goals Goal Patient Goal Type Associated Problems Recent Progress Patient-Stated? Author Blood Pressure < 140/90 Blood Pressure 160/90( 025 9:20 AM EDT) Cristal Foster, PharmD documented as of this encounter Visit Diagnoses Not on filedocumented in this encounter Additional Health Concerns Assessment Noted Time PHQ-9 Depression Total Score: 10 024 10:50 AM EDT documented as of this encounter Care Teams Fulfillment Representative Relationship Specialty Start Date End Date Marcie Simpson MD [address] [place] [address] PCP - General Family Medicine 01/03/21 documented as of this encounter
--- OUTSIDE RECORDS SUMMARY | 2025-09-22 14:06 | XMS_ITS | Encounter Summary ---
Author Organization [facility] Address [address] [place] [address] [address] [place] [address] Care Team Providers Care Senior Living Advisor Name Role Phone Marcie Simpson MD Primary Care Provide r Reason for Visit * Reason Comments Med Refill Encounter Details Date Type Department Care Team (Late Contact Info) Description 02/06/2023 Refill [facility] [address] [place] [phone] Tosha Banerjee FNP [address] [place] [address] History of DVT (deep vein thrombosis) Social History Tobacco Use Types Packs/Day Years Used Date Smoking Tobacco: Never Alcohol Use Standard Drinks/Week Comments Never 0 (1 standard drink = 0.6 oz pur e alcohol) Comments Unknown Sex and Gender Information Value [...] Description 09/26/2025 2:30 PM EDT Clinical Support [facility] [address] [place] [phone] 11/14/2025 11:00 AM EST Office Visit [facility] [address] [place] [address] [phone] Marcie Simpson MD [address] [place] [address] [phone] documented as of this encounter Visit Diagnoses Diagnosis History of DVT (deep vein thrombosis) documented in this encounter Care Teams Senior Living Advisor Relationship Specialty Start Date End Date Marcie Simpson MD [address] [place] [address] PCP - General Family Medicine 01/03/21 documented as of this encounter
--- OUTSIDE RECORDS SUMMARY | 2025-09-22 14:06 | XMS_ITS | Clinical Summary ---
Author Organization [employer] Address [address] [place] [address] [address] [place] [address] Care Team Providers Care Artificial Intelligence Specialist Name Role Phone Marcie Simpson MD Primary Care Provide r Allergies Active Allergy Reactions Criticality Noted Date Comments Albolene 09/19/2022 Other reaction(s): Other (see comments) Blurry vision Risperidone 11/09/2013 Other reaction(s): Blurred VIsion Medications acamprosate (Campral) 333 MG EC tablet Take 2 tablets by mouth every 8 (eight) hours. Active buPROPion XL (Wellbutrin XL) 300 MG 24 hr tablet take 1 tablet by oral route every day. swallow whole. Do not crush, chew and or divide. Active doxazosin (Cardura) 2 MG tablet Take 2 mg by mouth in the evening. 07/16/20 23 Active melatonin 3 MG tablet Take 1 tablet by mouth if needed at bedtime. Active mirtazapine (Remeron) 30 MG tablet Take 1 tablet by mouth at bed time. Active OLANZapine (ZyPREXA) 20 MG tablet Take 1 tablet by mouth Once daily. 05/22/20 21 Active topiramate (Topamax) 25 MG tablet Take 1 tablet by mouth at bedtime. 09/23/20 23 Active fluticasone (Flonase Allergy Relief) 50 MCG/ACT nasal sprayIndications :Mild intermittent asthma with acute exacerbation Administer 1 spray into each nostril in the morning. Shake gently. Before first use, prime pump. After use, clean tip and replace cap. 16 g 12 10/03/20 23 Active albuterol 108 (90 Base) MCG/ACT inhalerIndicatio ns:Mild intermittent asthma with acute exacerbation Inhale 2 puffs every 4 (four) hours if needed for wheezing or shortness of breath. 18 g 1 10/03/20 23 Active omeprazole (PriLOSEC) [address] capsuleIndicatio ns:Gastroesophag eal reflux disease without esophagitis TAKE 1 CAPSULE BY MOUTH EVERY MORNING BEFORE A MEAL 90 capsule 3 04/07/20 24 Active metFORMIN (Glucophage) 500 MG tabletIndication s:Type 2 diabetes mellitus with other specified complication, unspecified whether custodial insulin use (HCC) TAKE 1 TABLET BY MOUTH TWICE DAILY IN THE MORNING AND IN THE EVENING WITH FOOD 180 tablet 3 12/06/19 25 Active D3-1000 25 MCG (1000 UT) capsuleIndicatio ns:CKD (chronic kidney disease), stage IV (CMS/HCC) (HCC) TAKE 1 CAPSULE BY MOUTH EVERY MORNING 90 capsule 1 04/05/20 25 Active Multiple Vitamin (Multivitamin) tabletIndication s:Nasal congestion TAKE 1 TABLET BY MOUTH EVERY MORNING WITH FOOD 60 tablet 2 04/15/20 25 Active lisinopril 40 MG tabletIndication s:Primary hypertension Take 1 tablet (40 mg) by mouth Once per day. 90 tablet 1 04/21/20 25 Active amLODIPine (Norvasc) 10 MG tabletIndication s:Hypertension, unspecified type TAKE 1 TABLET BY MOUTH EVERY MORNING 60 tablet 2 06/17/20 25 Active atorvastatin (Lipitor) 20 MG tabletIndication s:Hypertension, unspecified type TAKE 1 TABLET BY MOUTH AT BEDTIME 30 tablet 1 08/08/20 25 Active lidocaine (Lidoderm) 5 % patchIndications :Right arm pain Apply 1 patch topically Once per day. Remove & discard patch within 12 hours or as directed by MD. 30 patch 2 09/08/20 25 Active FREESTYLE LITE test stripIndications :Prediabetes Use to test blood sugar 2 times daily 100 each 12 09/08/20 25 026 Active Lancets miscIndications: Prediabetes Use to test blood sugar 2 times daily 100 each 09/08/20 25 Active Alcohol Swabs 70 % padsIndications: Prediabetes Use to clean skin to check blood sugar 2 times daily 100 each 09/08/20 25 Active Blood Glucose Monitoring Suppl (FreeStyle Toluca Lite) w/Device kitIndications:P rediabetes Use to test blood sugar 2 times daily 1 kit 09/08/20 25 Active hydrALAZINE (Apresoline) 10 MG tabletIndication s:Essential hypertension TAKE 1 TABLET BY MOUTH THREE TIMES DAILY IN THE MORNING, EVENING, AND BEDTIME 90 tablet 3 09/12/20 25 Active omeprazole (PriLOSEC) [address] capsule TAKE 1 CAPSULE BY MOUTH EVERY MORNING 30 capsule 2 09/15/20 25 Active furosemide (Lasix) 40 MG tablet TAKE 1 TABLET BY MOUTH EVERY MORNING 30 tablet 2 09/15/20 25 Active carvedilol (Coreg) 12.5 MG tablet TAKE 1 TABLET BY MOUTH TWICE DAILY IN THE MORNING AND IN THE EVENING WITH MEALS 60 tablet 2 09/15/20 25 Active thiamine (Vitamin B-1) 100 MG tabletIndication s:Thiamine deficiency TAKE 1 TABLET BY MOUTH EVERY MORNING 30 tablet 2 09/15/20 25 Active hydrALAZINE (Apresoline) 10 MG tabletIndication s:Essential hypertension TAKE 1 TABLET BY MOUTH THREE TIMES DAILY IN THE MORNING, EVENING, AND BEDTIME 90 tablet 3 05/09/20 25 025 Discontinued omeprazole (PriLOSEC) [address] capsule Take 1 capsule (20 mg) by mouth in the morning. 30 capsule 08/19/20 25 025 Discontinued furosemide (Lasix) 40 MG tablet Take 1 tablet (40 mg) by mouth in the morning. 30 tablet 08/19/20 25 025 Discontinued carvedilol (Coreg) 12.5 MG tablet Take 1 tablet (12.5 mg) by mouth with breakfast and with evening meal. 60 tablet 08/19/20 25 025 Discontinued thiamine (Vitamin B-1) 100 MG tabletIndication s:Thiamine deficiency Take 1 tablet (100 mg) by mouth in the morning. 30 tablet 08/19/20 25 025 Discontinued Active Problems Problem Noted Date Diagnosed Date Encounter for screening mamm ogram for malignant neoplasm of breast 09/16/2024 Chronic bilateral low back pain without sciatica 09/16/2024 Chronic right shoulder pain 09/16/2024 Resting tremor 09/16/2024 Assessment & Plan (09/16/2024 11:39 AM EDT): Parkinson's? Blood work ordered, neurology referral Forgetfulness 09/16/2024 Unstable gait 09/16/2024 Assessment & Plan (09/16/2024 11:26 AM EDT): I will prescribe for patient a cane and a shower chair Bunion, left 09/16/2024 CKD (chronic kidney disease), stage II CKD (chronic kidney disease), stage IV ([facility]) 04/17/2023 Dementia ([facility]) 04/17/2023 Essential hypertension 04/17/2023 Assessment & Plan (04/17/2023 2:22 PM EDT): - Aerobic exercise to reduce BP. Initial goal of 30 min walk 3-5x/week. Increase as tolerated. - low-sodium diet (goal: <2g/day) and heart healthy diet such as DASH to reduce BP and prevent ASCVD. - Home BP monitoring 1-2 x day with goal of <140/90. - Seek immediate medical attention for chest pain, palpitations, SOB, syncope, or sudden changes in mental status. -Continue with lisinopril 40mg daily, amlodipine 10mg, I added today carvedilol 6.25mg BID - Do not change or discontinue current prescriptions without first consulting health care provider Gastroesophageal reflux disease 04/17/2023 Hypercalcemia 04/17/2023 Lacunar infarction ([facility]) 04/17/2023 Mood disorder 04/17/2023 Plantar fasciitis 04/17/2023 Seborrheic dermatitis 04/17/2023 Severe obesity ([facility]) 04/17/2023 History of DVT of lower extremity 04/17/2023 Assessment & Plan (04/17/2023 2:25 PM EDT): I refer patient again to hematology to make sure duration of treatment of radha, she took it form 06/20 till 02/20 Prediabetes 04/17/2023 Assessment & Plan (09/16/2024 11:39 AM EDT): Today extensive discussion was done about life style modifications I advise healthy diet (low calorie) and cardiovascular exercise Assessment & Plan (04/17/2023 2:24 PM EDT): Today extensive discussion was done about life style modifications I advise healthy diet (low calorie) and cardiovascular exercise Vaginal discharge 04/17/2023 Assessment & Plan (04/17/2023 2:24 PM EDT): BV ordered Empiric treatment for yeast and BV Patient to be contacted with results Cocaine abuse 08/06/2018 Schizoaffective disorder, bipolar type (CMS/HCC) 08/06/2018 Mild intermittent asthma 05/27/2018 Right lower quadrant pain 04/30/2018 Knee pain 04/07/2018 Cervical spondylosis 03/19/2016 Sleep apnea 11/09/2013 Hypertension 10/25/2013 Assessment & Plan (09/16/2024 11:39 AM EDT): Maintenance: BMP: ordered today Lipid Panel: ordered today ASCVD Risk: Calculate pending updated labs _ BP elevated today I advise to log BP at home I will refer her to our CDTM program - Aerobic exercise to reduce BP. Initial goal of 30 min walk 3-5x/week. Increase as tolerated. - low-sodium diet (goal: <2g/day) and heart healthy diet such as DASH to reduce BP and prevent ASCVD. - Home BP monitoring 1-2 x day with goal of <140/90. - Seek immediate medical attention for chest pain, palpitations, SOB, syncope, or sudden changes in mental status. - Do not change or discontinue current prescriptions without first consulting health care provider Depressive disorder 09/14/2013 Encounters Date Type Department Care Team Description 09/22/2025 Refill [facility] [address] [place] [address] Kiki Albert, JEFFERY 09/15/2025 Refill [facility] [address] [place] [address] Marcie Simpson MD Thiamine deficiency 09/11/2025 Refill [facility] [address] [place] [address] LongdaleDina FNP Essential hypertension 09/09/2025 Telephone [facility] [address] [place] [address] Marcie Simpson MD [place] 09/09/2025 Results Follow-Up [facility] [address] [place] [phone] Johnna García ANP POCT Glucose, POCT Hgb A1c, Bacterial Vaginosis Panel 09/08/2025 9:15 AM EDT Office Visit [address] [phone] Johnna García ANP Right arm pain (Primary Dx); Prediabetes; Encounter for vaccination; Encounter for immunization; Essential hypertension; Chronic kidney disease, unspecified CKD stage; Vaginal discharge 09/08/2025 Travel 09/07/[address] [address] Marcie Simpson MD No Show 09/06/2025 Telephone [facility] [address] [place] [phone] Marcie Simpson MD chart prep 08/31/[address] [address] Marcie Simpson MD Nurse Triage 08/19/2025 Refill [facility] [address] [place] [phone] Marcie Simpson MD Thiamine deficiency 08/19/2025 Telephone [facility] [address] [place] [phone] Marcie Simpson MD 08/19/[address] [address] Nasreen Villalta, PharmD 08/06/2025 Refill [facility] [address] [place] [phone] Marcie Simpson MD Hypertension, unspecified type 07/14/2025 Refill [facility] [address] [place], [place] [phone] Marcie Simpson MD Thiamine deficiency from Last 3 Months Immunizations Immunization Administration Dates Next Due INFLUENZA INJECTABLE QUADRIV ALANT CCIIV4 MDCK Multi-dose vial 11/14/2021 Influenza Injectable Quadriv alant Preservative Free IIV4 MDCK 09/03/2017 Influenza injectable quadriv alent IIV4 with preservative 10/19/2018 Influenza injectable quadriv alent preservative free 09/05/2021,11/18/2019,09/14/2017,10/24 Influenza, High Dose Seasona l, Preservative Free 09/08/2025,09/16/2024 Influenza, IIV3, injectable 08/27/2010, 7 Novel [id number], preservative-free 10/25/2009 Pfizer Covid-19 Vaccine 12+ 09/08/2025, 4 Pneumococcal Conjugate PCV 20 07/15/2022 Pneumococcal Polysaccharide PPSV23 05/14/2017,,05/09/2010 TD (adult), 2 Lf tetanus tox oid, preservative free, adsorbed 01/30/2008 Tdap 05/03/2019 Zoster, Recombinant 07/15/2022 Social History Tobacco Use Types Packs/Day Years Used Date Smoking Tobacco: Never Passive Smoke Exposure: Never Smokeless Tobacco: Never Tobacco Cessation:Counseling Given: Not Answered Alcohol Use Standard Drinks/Week Comments Never 0 (1 standard drink = 0.6 oz pur e alcohol) Depression Answer Date Recorded Patient Health Questionnaire-9 Score 0 09/08/2025 Patient Health Questionnaire-9 Score 0 09/08/2025 Last PHQ-9: Questionnaire Data Not on file [...] Answer Date Recorded Patient Health Questionnaire-2 Score 0 09/08/2025 Internet Access Answer Date Recorded Internet Access Q1 Yes 08/02/2024 Internet Access Q2 Not on file 08/02/2024 Comments Unknown Sex and Gender Information Value Date Recorded Sex Assigned at Female 09/30/2022 10:22 AM EDT Legal Sex Female 10:22 AM EDT Gender Identity Female 09/30/2022 10:22 AM EDT Sexual Orientation Straight 09/30/2022 10 :22 AM EDT Last Filed Vital Signs Vital Sign Reading Time Taken Comments Blood Pressure 160/90 09/08/2025 9:20 AM EDT Pulse 87 09/08/2025 9:20 AM EDT Temperature 36.1 C (97 F) 09/08/2025 9:20 AM EDT Respiratory Rate 12 09/08/2025 9:20 AM EDT Oxygen Saturation 97% 09/08/2025 9:20 AM EDT Inhaled Oxygen Concentration - - Weight 104 kg (230 lb) 09/08/2025 9:20 AM EDT Height 162.6 cm (5' 4 ) 09/08/2025 9:20 AM EDT Body Mass Index 39.48 09/08/2025 9:20 AM EDT Plan of Treatment Upcoming Encounters Date Type Department Care Team (Late st Contact Info) Description 09/26/2025 2:30 PM EDT Clinical Support [facility] [address] [place] [phone] 11/14/2025 11:00 AM EST Office Visit [facility] [address] [place] [phone] Marcie Simpson MD [address] [place] [phone] Health Maintenance Due Date Last Done Comments CT Colonography 1957 Colonoscopy 1957 Colorectal Cancer Screening 1957 FIT DNA/Cologuard 1957 FIT 1957 FOBT 1957 Sigmoidoscopy 1957 Diabetes: Foot Exam 1967 Eye Exam 1967 Alcohol/Substance Use Screening 1969 RSV Patients and Patients Aged 60 years or older (1 - Risk 60-74 years 1-dose series) 2017 Diabetes: Urine Protein Screening 12/08/2020 09/22/2025, 12/08/2019 Zoster Vaccines (2 of 2) 09/09/2022 07/15/2022 Mammogram 09/30/2022 09/30/2020, 09/01, 08/07/2018 SDOH Screening 07/09/2025 07/09/2024 Lipid Panel 09/16/2025 09/22/2025, 08/31, 05/13/2022, Additional history exists Diabetes: Hemoglobin A1C 12/09/2025 025, 09/08/2025, 09/16/2024, Additional history exists Depression Screening 09/08/2026 09/08/2025, 09/08/20 25 Tobacco Screening 09/08/2026 09/08/2025 DTaP/Tdap/Td Vaccines (2 - Td or Tdap) 05/03/2029 05/03/2019, 01/30/2008 Hepatitis C Screening Completed 10/02/2021, 021 Pneumococcal Vaccine: 50+ Years Completed 07/15/2022, 05/14/2017, 07/27/2015, Additional history exists COVID-19 Vaccine Completed 09/08/2025, , 11/14/2021, Additional history exists Influenza Vaccine Completed 09/08/2025, , 11/14/2021, Additional history exists HIB Vaccines Aged Out No longer eligi ble based on patient's age to complete this topic HPV Vaccines Aged Out No longer eligi ble based on patient's age to complete this topic Hepatitis A Vaccines Aged Out No long er eligible based on patient's age to complete this topic Hepatitis B Vaccines Aged Out No long er eligible based on patient's age to complete this topic IPV Vaccines Aged Out No longer eligi ble based on patient's age to complete this topic Meningococcal B Vaccine Aged Out No l onger eligible based on patient's age to complete this topic Meningococcal Vaccine Aged Out No davey terrie eligible based on patient's age to complete this topic RSV under 20 months Aged Out No longe r eligible based on patient's age to complete this topic Rotavirus Vaccines Aged Out No longer eligible based on patient's age to complete this topic Goals Goal Patient Goal Type Associated Problems Recent Progress Patient-Stated? Author Blood Pressure < 140/90 Blood Pressure 160/90( 025 9:20 AM EDT) No Cristal Anderson PharmD Procedures Procedure Name Priority Date/Time Associated Diagnosis Comments ALBUMIN, RANDOM URINE W/CREATININE Routine 09/22/2025 11:14 AM EDT Prediabetes Essential hypertension COMPREHENSIVE METABOLIC PANEL Routine 09/22/2025 11:14 AM EDT Prediabetes LIPID PANEL, STANDARD Routine 09/22/2025 11:14 AM EDT Prediabetes Chronic kidney disease, unspecified CKD stage HEMOGLOBIN A1C Routine 09/22/2025 11:14 AM EDT Prediabetes BACTERIAL VAGINOSIS PANEL Routine 09/08/2025 9:55 AM EDT Vaginal discharge POCT GLYCATED HEMOGLOBIN, TOTAL Routine 09/08/2025 9:42 AM EDT Prediabetes POCT GLUCOSE Routine 09/08/2025 9:33 AM EDT Prediabetes ZZZ HISTORICAL HEPATITIS C AB W/REFL TO HCV RNA, QN, PCR Routine 10/02/2021 10:54 AM EDT MAMMOGRAM GENERIC Routine 09/30/2020 9:0 2 AM EDT from Last 3 Months or Most Recently Relevant to Health Maintenance Results * Albumin, Random Urine W/Creatinine (09/22/2025 11:14 AM EDT) Creatinine, Urine 67.58 mg/dL [facility] Microalbumin Urine 15.0 mg/L [facility] Microalbum Creatinine Ratio Ur 22.1 <30 ug/mg cr [facility] Comment:Albumin/Creatinine R atio Reference Ranges: Normal: < 30 ug/mg creatinine Microalbuminuria: 30 - 300 ug/mg creatinineClinical Albuminuria: > 300 ug/mg creatinine Urine (Urine, Random) 09/22/2025 11:14 AM EDT 09/22/2025 12:59 PM EDT Johnna García ANP LAB URINE ORDERABLES Final Resul t Performing Organization Address [facility] Co de Phone Number [facility] [address] [place] [phone] * (ABNORMAL) Hemoglobin A1c (09/22/2025 11:14 AM EDT) Hemoglobin A1c 6.6(H) <6.0 % [facility] Comment:Hemoglobin A1C Refer ence Range Adults: 4.8 - 6.0 % Non diabetic: < 6.0 % Goal: < 7.0 %Additional Action Suggested: > 8.0 %Note: Hemoglobin A1c results are invalid for patients with abnormal amounts of HbF. Blood transfusions may impact the HbA1c concentration in the patient sample. Estimated Average Glucose 143 mg/dL [facility] Comment:eAG = Estimated ave rage glucose which is %A1C expressed asaverage glucose, using the formula of the [id number] Glucose study (ADAG), Diabetes Care, Vol.31,#8,Jul. 2007 Blood Venous blood specimen / Unknown 09/22/2025 11:14 AM EDT 09/22/2025 1:01 PM EDT Johnna García ANP LAB BLOOD ORDERABLES Final Resul t Performing Organization Address [facility] Co de Phone Number [facility] [address] [place] [phone] [phone] * (ABNORMAL) Lipid Panel, Standard (09/22/2025 11:14 AM EDT) Triglycerides 210(H) <150 mg/dL [facility] Comment:Desirable Triglyceri de: less than 150 mg/dLBorderline High Triglyceride 150-199 mg/dLHigh Triglyceride: 200-499 mg/dLVery High Triglyceride: greater than or equal to 5OO mg/dL Cholesterol 174 <200 mg/dL [facility] Comment:Desirable Cholestero l: less than 200 mg/dLBorderline High Cholesterol: 200-239 mg/dLHigh Cholesterol: greater than 239 mg/dL LDL Cholesterol Calculated 81 <100 mg/dL [facility] Comment:Desirable LDL: less than 100 mg/dLNear Optimal/Above Optimal LDL: 110- 129 mg/dLBorderline High LDL: 130-159 mg/dLHigh LDL: 160-189 mg/dLVery High LDL: greater than or equal to 190 mg/dL HDL Cholesterol 51 >40 mg/dL [facility] Comment:Desirable HDL: great er than 40 mg/dL Note: This HDL assay may give artificially low results in patients with liver disease. Blood Venous blood specimen / Unknown 09/22/2025 11:14 AM EDT 09/22/2025 1:01 PM EDT us Johnna García [facility] BLOOD ORDERABLES Final Resul t [facility] [address] [place] [phone] * (ABNORMAL) Comprehensive Metabolic Panel (09/22/2025 11:14 AM EDT) Sodium 140 135 - 145 mmol/L [facility] Potassium 4.4 3.3 - 5.1 mmol/L [facility] Chloride 105 96 - 108 mmol/L [facility] Carbon Dioxide 27 22 - 29 mmol/L [facility] Anion Gap 12 12 - 20 [facility] Urea Nitrogen (BUN) 11 9 - 16 mg/dL [facility] Creatinine, Serum 1.06 0.5 - 1.4 mg/dL [facility] Estimated Glomerular Filt Rate 52 [facility] Comment:Chronic Kidney Disea se: Estimated GFR < 60 mL/min/[id number] Kidney Disease: Estimated GFR < 15 mL/min/1.73m2 Glucose 210(H) 60 - 115 mg/dL [facility] Calcium 10.1 8.4 - 10.2 mg/dL [facility] Bilirubin, Total 0.3 0.0 - 1.0 mg/dL [facility] Aspartate Amino Transferase 37(H) 5 - 31 U/L [facility] Alanine Aminotransferase 34(H) 0 - 31 U/L [facility] Total Protein 7.7 6.5 - 8.0 g/dL [facility] Albumin Level 4.8 3.5 - 5.0 g/dL [facility] Alkaline Phosphatase 113 39 - 117 U/L [facility] Blood Venous blood specimen / Unknown 09/22/2025 11:14 AM EDT 09/22/2025 1:[address] [facility] BLOOD ORDERABLES Final Resul t [facility] [address] [place] [phone] * Bacterial Vaginosis Panel (09/08/2025 9:55 AM EDT) TRICHOMONAS VAGINALIS DETECTION BY PCR NOT DETECTED Not Detect [facility] BACTERIAL VAGINOSIS DETECTION BY PCR NEGATIVE Negative [facility] Comment:The BV organism targ ets of the Xpert Xpress MVP test can becommensal in women; Xpert Xpress MVP positive results forbacterial vaginosis should be considered in conjunction withother clinical and patient information to determine thedisease status. Organisms that are not detected by the XpertXpress MVP test have also been reported to be associatedwith BV and aerobic vaginitis.The Xpert Xpress MVP test performance has not been evaluatedin patients under the age of 14. NOA GROUP DETECTION BY PCR NOT DETECTED Not Detect [facility] Noa glab krusei PCR NOT DETECTED Not Detect [facility] Swab Vaginal structure / Unknown 09/08/2025 9:55 AM EDT 09/08/2025 7:23 PM EDT Johnna García [facility] MICROBIOLOGY - GENERAL ORDER KRIS Final Result [facility] [address] [place] [phone] * (ABNORMAL) POCT Hgb A1c (09/08/2025 9:42 AM EDT) Hemoglobin A1C 7.2(A) 4.0 - 5.7 % QC Media Lot # [id number] Lot# Expiration Date [id number] Blood 09/08/2025 9:42 AM EDT Johnna García [facility] POINT OF CARE TEST ENTER/EDIT OR DERABLES Final Result * (ABNORMAL) POCT Glucose (09/08/2025 9:33 AM EDT) Pathologist [facility] Glucose Blood, POC 220(A) 60 - 200 mg/dL QC Media Lot # [id number] Lot# Expiration Date ,625,633 Blood Capillary blood specimen / Unknown 09/08/2025 9:33 AM EDT Johnna García [facility] POINT OF CARE TEST ENTER/EDIT OR DERABLES Final Result * HEPATITIS C AB W/REFL TO HCV RNA, QN, PCR (10/02/2021 10:54 AM EDT) Pathologist [facility] HEPATITIS C ANTIBODY NON-REACT INDY NON-REACT INDY [facility] INDEX 0.03 <1.00 [facility] Comment: HCV antibody was non-reactive. There is no laboratory evidence of HCV infection. In most cases, no further action is required. However, if recent HCV exposure is suspected, a test for HCV RNA (test code 43425) is suggested. For additional information please refer to http://education.[employer]/faq/WKP07y4 (This link is being provided for informational/ educational purposes only.) 10/02/2021 10:5 4 AM EDT us Marcie Arango MD HISTORICAL/NON ORDERA BLE LABS Final Result [facility] [address] * Mammography Report 1 (09/30/2020 9:02 AM EDT) Anatomical Region Laterality Modality Breast Bilateral Mammography 09/30/2020 9:02 AM EDT Narrative 06/05/2021 1:39 PM EDT Refer to the Notes tab for result details [facility] Procedure: Mammography Report 1 Procedure Note Provider, MD Bharath - 02/22/2023 Refer to the Notes tab for result details [facility] Procedure: Mammography Report 1 us Sascha Holguin MD IMG BI PROCEDURES Final Resu lt from Last 3 Months or Most Recently Relevant to Health Maintenance Insurance [place] [address] [place] [phone] Care Teams Artificial Intelligence Specialist Relationship Specialty Start Date End Date Marcie Simpson MD [address] [place] [phone] PCP - General Family Medicine 01/03/21
--- OUTSIDE RECORDS SUMMARY | 2025-09-22 14:06 | XMS_ITS | Encounter Summary ---
Author Organization [employer] Address [address] [place] [address] 7t [place] [address] Care Team Providers Care Transcription Typist Name Role Phone Marcie Simpson MD Primary Care Provide r Encounter Details Date Type Department Care Team (Late st Contact Info) Description 02/14/2023 Orders Only [address] [address] Roma Singh, Rock Social History Tobacco Use Types Packs/Day Years [...] 09/26/2025 2:30 PM EDT Clinical Support [address] [address] 11/14/2025 11:00 AM EST Office Visit [address] [address] Marcie Simpson MD [address] [place] [phone] documented as of this encounter Visit Diagnoses Not on filedocumented in this encounter Care Teams Transcription Typist Relationship Specialty Start Date End Date Marcie Simpson MD [address] [place] [address] PCP - General Family Medicine 01/03/21 documented as of this encounter
--- OUTSIDE RECORDS SUMMARY | 2025-09-22 14:06 | XMS_ITS | Encounter Summary ---
Author Organization [employer] Address [address] [facility] 7t [place] [address] Care Team Providers Care Dry Kiln Burner Name Role Phone Marcie Simpson MD Primary Care Provide r Encounter Details Date Type Department Care Team (Late st Contact Info) Description 2023 Orders Only [facility] [address] [place] [address] Nasreen Suarez LPN Social History Tobacco Use Types Packs/Day Years [...] Description 09/26/2025 2:30 PM EDT Clinical Support [facility] [address] [place] [address] 11/14/2025 11:00 AM EST Office Visit [facility] [address] [place] [phone] Marcie Simpson MD [address] [place] [address] documented as of this encounter Visit Diagnoses Not on filedocumented in this encounter Care Teams Dry Kiln Burner Relationship Specialty Start Date End Date Marcie Simpson MD [address] [place] [address] PCP - General Family Medicine 01/03/21 documented as of this encounter
--- OUTSIDE RECORDS SUMMARY | 2025-09-22 14:06 | XMS_ITS | Encounter Summary ---
Author Organization [employer] Address 75 [facility] 7t [place] [address] Care Team Providers Care Ophthalmic Pathologist Name Role Phone Marcie Simpson MD Primary Care Provide r Reason for Visit * Reason Onset Date Comments Paperwork/Forms 09/22/2025 Encounter Details Date Type Department Care Team ([facility] st Contact Info) Description 09/22/2025 Refill [facility] [address] [place], [place] [phone] Kiki Albert RN [address] [place], [place] [phone] Social History Tobacco Use Types Packs/Day Years [...] encounter Miscellaneous Notes * Telephone Encounter - Kiki Albert RN - 09/22/2025 12:46 PM EDT Received fax from pharmacy that paddy atkinson Rxd by Ricky not covered by pt's insurance. Per pharmacy, [facility] may be covered. Queued. documented in this encounter Plan of Treatment Upcoming Encounters Date Type Department Care Team (Late st Contact Info) Description 09/26/2025 2:30 PM EDT Clinical Support [facility] [address] [place] [phone] 11/14/2025 11:00 AM EST Office Visit [facility] [address] [place] [phone] Marcie Simpson MD [address] [place] [phone] documented as of this encounter Goals Goal Patient Goal Type Associated Problems Recent Progress Patient-Stated? Author Blood Pressure < 140/90 Blood Pressure 160/90( 025 9:20 AM EDT) No Cristal Anderson, PharmD documented as of this encounter Visit Diagnoses Not on filedocumented in this encounter Additional Health Concerns Assessment Noted Time PHQ-9 Depression Total Score: 0 09/08/20 25 10:11 AM EDT documented as of this encounter Care Teams Ophthalmic Pathologist Relationship Specialty Start Date End Date Marcie Simpson MD [address] [place] [address] PCP - General Family Medicine 01/03/21 documented as of this encounter
--- OUTSIDE RECORDS SUMMARY | 2025-09-22 14:07 | XMS_ITS | Encounter Summary ---
Author Organization [employer] Address [address] [facility] 7t [place] [address] Care Team Providers Care Upper Inspector Name Role Phone Marcie Simpson MD Primary Care Provide r Reason for Visit * Reason Comments Med Refill Encounter Details Date Type Department Care Team (Late st Contact Info) Description 01/13/2025 Refill [facility] [address] [place], [place] [phone] Marcie Simpson MD [address] [place], [place] [phone] Thiamine deficiency; Primary hypertension Social History Tobacco Use Types Packs/Day Years [...] Description 09/26/2025 2:30 PM EDT Clinical Support [facility] [address] [place] [phone] 11/14/2025 11:00 AM EST Office Visit [address] [address] Marcie Simpson MD [address] [place] [phone] documented as of this encounter Goals Goal Patient Goal Type Associated Problems Recent Progress Patient-Stated? Author Blood Pressure < 140/90 Blood Pressure 160/90( 025 9:20 AM EDT) No Cristal Anderson, Rock documented as of this encounter Visit Diagnoses Diagnosis Thiamine deficiency Other and unspecified manifestations of thiamine deficiency Primary hypertension Unspecified essential hypertension documented in this encounter Additional Health Concerns Assessment Noted Time PHQ-9 Depression Total Score: 10 024 10:50 AM EDT documented as of this encounter Care Teams Upper Inspector Relationship Specialty Start Date End Date Marcie Simpson MD [address] [place] [phone] PCP - General Family Medicine 01/03/21 documented as of this encounter
--- OUTSIDE RECORDS SUMMARY | 2025-09-22 14:07 | XMS_ITS | Encounter Summary ---
Author Organization [employer] Address [address] [facility] 7t [place] [address] Care Team Providers Care Rail Washer Name Role Phone Marcie Simpson MD Primary Care Provide r Encounter Details Date Type Department Care Team ([facility] st Contact Info) Description 12/03/2024 Telephone [facility] [address] [place], [place] [phone] Marcie Simpson MD [address] [place], [place] [phone] Social History Tobacco Use Types Packs/Day Years [...] Description 09/26/2025 2:30 PM EDT Clinical Support [facility] [address] [place] [address] 11/14/2025 11:00 AM EST Office Visit [address] [address] Marcie Simpson MD [address] [place] [address] documented as of this encounter Goals Goal [...] documented as of this encounter Care Teams Rail Washer Relationship Specialty Start Date End Date Marcie Simpson MD [address] [place] [phone] PCP - General Family Medicine 01/03/21 documented as of this encounter
--- OUTSIDE RECORDS SUMMARY | 2025-09-22 14:07 | XMS_ITS | Clinical Summary ---
Author Organization [facility] Address [address] [address] Care Team Providers Care Buzzsaw Operator Helper Name Role Phone Marcie Simpson MD Primary Care Provide r Allergies Active Allergy Reactions Criticality Noted Date Comments Albolene Other (see comments) 09/19/2022 Blurry vision Medications Melatonin 5 MG tablet Take by mouth Active buPROPion XL (WELLBUTRIN XL) 300 MG 24 hr tablet Take 300 mg by mouth 1 (one) time each day Do not crush, chew, or split. Active mirtazapine (REMERON) 15 MG tablet Take 15 mg by mouth every night Active topiramate (TOPAMAX) 25 MG tablet Take 25 mg by mouth in the morning and 25 mg in the evening. Active OLANZapine (ZyPREXA) 20 MG tablet Take 20 mg by mouth every night Active thiamine (VITAMIN B-1) 100 MG tablet Take 100 mg by mouth 1 (one) time each day Active Cholecalciferol (Vitamin D) 50 MCG (1999 UT) capsule Take by mouth Active apixaban (ELIQUIS) 5 MG tablet Take 5 mg by mouth in the morning and 5 mg in the evening. Active atorvastatin (LIPITOR) 20 MG tablet Take 20 mg by mouth 1 (one) time each day Active amLODIPine (NORVASC) 10 MG tablet Take 10 mg by mouth 1 (one) time each day Active metFORMIN XR (GLUCOPHAGE-XR) 500 MG 24 hr tablet Take 500 mg by mouth 1 (one) time each day with dinner Do not crush, chew, or split. Active doxazosin (Cardura) 2 MG tablet Take 1 tablet (2 mg total) by mouth every night 30 tablet 11 07/16/2023 Active lisinopril 40 MG tablet Take 1 tablet (40 mg total) by mouth 1 (one) time each day 30 tablet 11 09/22/2023 Active Active Problems Problem Noted Date Diagnosed Date Essential (primary) hypertension 09/18/2022 Schizoaffective disorder, bipolar type Cocaine abuse, unspecified use 09/18/2022 Abdominal discomfort 09/18/2022 Chronic kidney disease 09/18/2022 Dementia with behavioral disturbance 09/18/2022 Resolved Problems Problem Noted Date Diagnosed Date Resolved Date Sleep apnea 09/18/2022 09/18/2022 Asthma 09/18/2022 09/18/2022 Pain in left knee 09/18/2022 09/18/2022 Hypercalcemia 09/18/2022 01/01/2023 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 1 Social History Tobacco Use Types Packs/Day Years Used Date Smoking Tobacco: Never Tobacco Cessation:Counseling Given: Not Answered Alcohol Use Standard Drinks/Week Comments Never 0 (1 standard drink = 0.6 oz pur e alcohol) Comments Unknown Sex and Gender Information Value Date Recorded Sex Assigned at Not on file Legal Sex Female 9:51 AM EDT Gender Identity Not on file Sexual Orientation Not on file Last Filed Vital Signs Vital Sign Reading Time Taken Comments Blood Pressure 140/78 07/16/2023 10:53 AM EDT Pulse 68 07/16/2023 10:53 AM EDT Temperature - - Respiratory Rate - - Oxygen Saturation 97% 07/16/2023 10:53 AM EDT Inhaled Oxygen Concentration - - Weight 100 kg (221 lb 3.2 oz) 07/16/2023 10:53 A M EDT Height 162.6 cm (5' 4 ) 07/16/2023 10:53 AM EDT Body Mass Index 37.97 07/16/2023 10:53 AM EDT Plan of Treatment Health Maintenance Due Date Last Done Comments Breast Cancer Screening 1955 Colorectal Cancer Screening: Annual FOBT 2006 Colorectal Cancer Screening: Colonoscopy 2006 Colorectal Cancer Screening: Sigmoidoscopy 2006 Influenza Vaccine (#1) 2025 , 09/05/2021, 11/18/2019, Additional history exists Pneumococcal Vaccine: 50+ Years Completed 07/15/2022, 05/14/2017, 07/27/2015, Additional history exists Pneumococcal Vaccine: Peds (0 to 5 Years) and At-Risk Patients (6 to 49 Years) Discontinued 07/15/2022, 05/14/2017, 07/27/2015, Additional history exists Hepatitis B Vaccine Aged Out No longe r eligible based on patient's age to complete this topic Insurance [facility] ([id number]) [facility] ([id number]) Care Teams Buzzsaw Operator Helper Relationship Specialty Start Date End Date Marcie Simpson MD [address] [place] [address] [address] [place] [phone] PCP - General Internal Medicine 05/15/22
--- OUTSIDE RECORDS SUMMARY | 2025-09-22 14:07 | XMS_ITS | Encounter Summary ---
Author Organization [employer] Address [address] [facility] 7t [place] [address] Care Team Providers Care Gang Tailer Name Role Phone Marcie Simpson MD Primary Care Provide r Reason for Visit * Reason Comments Med Refill Encounter Details Date Type Department Care Team (Late st Contact Info) Description 12/15/2023 Refill [facility] [address] [place], [place] [phone] Yumiko Juarez MD [address] [place], [place] [phone] Type 2 diabetes mellitus with other specified complication, unspecified whether product support representative insulin use ([facility]) Social History Tobacco Use Types Packs/Day Years [...] Description 09/26/2025 2:30 PM EDT Clinical Support [facility] [address] [place] [address] 11/14/2025 11:00 AM EST Office Visit [facility] [address] [place] [address] Marcie Simpson MD [address] [place] [phone] documented as of this encounter Goals Goal Patient Goal Type Associated Problems Recent Progress Patient-Stated? Author Blood Pressure < 140/90 Blood Pressure 160/90( 025 9:20 AM EDT) Cristal Foster, Rock documented as of this encounter Visit Diagnoses Diagnosis Type 2 diabetes mellitus with other specified complication, unspecified whether product support representative insulin use (HCC) documented in this encounter Additional Health Concerns Assessment Noted Time PHQ-9 Depression Total Score: 7 04/17/20 23 1:33 PM EDT documented as of this encounter Care Teams Gang Tailer Relationship Specialty Start Date End Date Marcie Simpson MD [address] [place] [phone] PCP - General Family Medicine 01/03/21 documented as of this encounter
== END 2025-09-22 11:11 | disposition home or self-care (01) ==
LOC: HO.HHCL 11:10
PROVIDERS: PCP Nurse Practitioner Primary Care; Visit Provider Nurse Practitioner Primary Care
DX: I12.9 Hypertensive chronic kidney disease with stage 1 through stage 4 chronic kidney disease, or unspecified chronic kidney disease (principal); N18.9 Chronic kidney disease, unspecified; R73.03 Prediabetes
CPT/HCPCS: 36415; 80053; 80061; 82043; 82570; 83036